=== PATIENT | male | born 1955 | race African-American/Black ===

== ENCOUNTER 2016-06-05 15:47 | Inpatient (IN) | payer MEDICARE, OTHER ==
[2016-06-05 16:28] VITALS: BMI 45.6
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
[2016-06-05] MEDS ORDERED: diphenhydrAMINE HCL 50 MG CAPSULE PO PRN (18:22)
[2016-06-05] MEDS ORDERED: hydrOXYzine PAMOATE 50 MG CAPSULE (FP) PO PRN (18:22)
[2016-06-05] MEDS ORDERED: guaiFENesin/D-METHORPHAN HB 10 ML UNIT-DOSE CUPS PO PRN (18:22)
[2016-06-05] MEDS ORDERED: diazePAM 5 MG TABLET PO ONE (18:22)
[2016-06-05] MEDS ORDERED: P-EPHED 60MG/TRIPROLIDI 2.5MG TABLET PO PRN (18:22)
[2016-06-05] MEDS ORDERED: LOPERAMIDE HCL 2 MG CAPSULE PO PRN (18:22)
[2016-06-05] MEDS ORDERED: MAG HYDROX/AL HYDROX/SIMETH 30 ML UNIT-DOSE CUP PO PRN (18:22)
[2016-06-05] MEDS ORDERED: MAGNESIUM CITRATE 300 ML BOTTLE PO PRN (18:22)
[2016-06-05] MEDS ORDERED: IBUPROFEN 400 MG TABLET (FP) PO PRN (18:22)
[2016-06-05] MEDS ORDERED: MENTHOL/PHENOL 1 EACH UD MM PRN (18:22)
[2016-06-05] MEDS ORDERED: ACETAMINOPHEN 325 MG TABLET (FP) PO PRN (18:22)
[2016-06-05] MEDS ORDERED: diazePAM 5 MG TABLET PO PRN (18:22)
[2016-06-05] MEDS ORDERED: MAGNESIUM HYDROX 2400MG/30ML ORAL SUSPENSION 30 ML CUP PO PRN (18:22)
[2016-06-05] MEDS ORDERED: ASPIRIN 81 MG CHEWABLE TABLETS PO SCH (18:45)
--- NOTE | 2016-06-05 21:16 | EKG ---
Test Reason : Blood Pressure : / mmHG Vent. Rate : 110 BPM Atrial Rate : 127 BPM P-R Int : 000 ms QRS Dur : 082 ms QT Int : 336 ms P-R-T Axes : 000 034 -06 degrees QTc Int : 454 ms ATRIAL FIBRILLATION WITH RAPID VENTRICULAR RESPONSE WITH PREMATURE VENTRICULAR OR ABERRANTLY CONDUCTED COMPLEXES NONSPECIFIC T WAVE ABNORMALITY ABNORMAL ECG WHEN COMPARED WITH ECG OF 23-SEP-2014 11:56, VENT. RATE HAS INCREASED BY 37 BPM NONSPECIFIC T WAVE ABNORMALITY NOW EVIDENT IN LATERAL LEADS Confirmed by VAISHALI HARE MD ([id number]) on 06/05/2016 9:15:51 PM Referred By: Confirmed By:VAISHALI HARE MD
--- NOTE | 2016-06-05 21:47 | PN ---
[facility] Progress Note Note: PT'S EKG WAS ABNORMAL (AFIB WITH RAPID VENTRICULAR RESPONSE WITH PREMATURE VENTRICUAL OR ABERRANTLY CONDUCTED COMPLEXES) AND HIS PULSE WAS 110. PT. HAS AN EXTENSIVE CARDIAC HISTORY TO INCLUDE AFIB, S/P PACEMAKER, CVA AND HTN. HE IS MORBIDLY OBESE AND NON-COMPLIANT WITH MEDICATIONS. PT. TO BE TRANSFERRED TO [facility] ER FOR FURTHER EVALUATION. REPORT GIVEN TO DR. ORTEGA.
[2016-06-05] MEDS ORDERED: levETIRAcetam 500 MG TABLET (FP) PO SCH (22:00)
[2016-06-05] MEDS ORDERED: THIAMINE HCL 100 MG TABLET (FP) PO SCH (22:00)
[2016-06-05] MEDS ORDERED: diazePAM 5 MG TABLET PO SCH (22:00)
[2016-06-05 22:05] VITALS: BP 142/64; PULSE 66; TEMP 97.9
[2016-06-06] MEDS ORDERED: PRENATAL VITAMINS W/ FOLIC ACID TABLET (FP) PO SCH (10:00)
--- NOTE | 2016-06-07 08:53 | DS ---
[id number] Present History: Alcohol Dependence Pertinent Past History: AF HTN ASTHMA SEIZURE DISORDER CVA - Physical Exam Results Vital Signs: Vital Signs Temperature 97.9 F 06/05/16 22:05 Pulse Rate 66 06/05/16 22:05 Respiratory Rate 18 06/05/16 22:05 Blood Pressure 142/64 06/05/16 22:05 O2 Sat by Pulse Oximetry (%) Pertinent Admission Physical Exam Findings: WITHDRAWAL SX. - Medication Discharge Medications: Ambulatory Orders Levetiracetam [Keppra -] 500 mg PO BID 06/05/16 Apixaban [Eliquis -] 5 mg PO BID tablet 06/07/16 Atorvastatin Ca [Lipitor] 10 mg PO HS tablet 06/07/16 Carvedilol [Coreg -] 12.5 mg PO BID tablet 06/07/16 Valsartan [Diovan] 40 mg PO DAILY tablet 06/07/16 - Diagnosis (1) Alcohol dependence with uncomplicated withdrawal Status: Acute (2) AF Atrial fibrillation Status: Chronic (3) Cocaine dependence Status: Chronic Qualifiers: Substance use status: uncomplicated Qualified Code(s): F14.20 - Cocaine dependence, uncomplicated (4) HTN (hypertension) Status: Chronic Qualifiers: Hypertension type: essential hypertension Qualified Code(s): I10 - Essential (primary) hypertension (5) Morbid obesity Status: Chronic Qualifiers: Obesity type: due to excess calories Qualified Code(s): E66.01 - Morbid (severe) obesity due to excess calories (6) Nicotine dependence Status: Chronic Qualifiers: Nicotine product type: cigarettes Substance use status: in withdrawal Qualified Code(s): F17.213 - Nicotine dependence, cigarettes, with withdrawal (7) Seizure disorder Status: Chronic (8) Asthma Status: Chronic Qualifiers: Asthma severity: mild intermittent Asthma complication type: uncomplicated Qualified Code(s): J45.20 - Mild intermittent asthma, uncomplicated - AMA Did Patient Leave Against Medical Advice: No (PT. WAS TRANSFERRED TO ED & ADMITTED TO TELEMETRY)
[2016-06-07] MEDS ORDERED: diazePAM 5 MG TABLET PO SCH (10:00)
[2016-06-09] MEDS ORDERED: diazePAM 5 MG TABLET PO SCH (10:00)
== END 2016-06-05 20:33 | disposition short-term general hospital (02) | DRG 774 ==
LOC: YASAS 15:47 → Y3N 17:55
PROVIDERS: ADMIT Internal Medicine; ATTEND Internal Medicine
PROC: HZ2ZZZZ Detoxification Services for Substance Abuse Treatment (ICD-10-PCS; principal; 2016-06-05)
DX: F10.230 Alcohol dependence with withdrawal, uncomplicated (principal); F14.20 Cocaine dependence, uncomplicated; F17.210 Nicotine dependence, cigarettes, uncomplicated; F41.8 Other specified anxiety disorders; I48.91 Unspecified atrial fibrillation; Z95.0 Presence of cardiac pacemaker; Z86.73 Personal history of transient ischemic attack (TIA), and cerebral infarction without residual deficits; E66.01 Morbid (severe) obesity due to excess calories; Z68.42 Body mass index [BMI] 45.0-49.9, adult
CPT/HCPCS: 93005; 93010

== ENCOUNTER 2016-06-05 20:50 | Inpatient (IN) | payer MEDICARE, OTHER ==
--- NOTE | 2016-06-05 21:03 | PDOC ---
History of Present Illness - General History Source: Patient Exam Limitations: Other - History of Present Illness Initial Comments: 06/05/16 21:28 The patient is a 60 year old male, with a significant past medical history of Atrial fibrillation(pacemaker), CVA, hyperlipidemia, and seizures(related to ETOH use), who presents to the emergency department complaining of palpitations since this afternoon. The patient reports he was transferred from [facility]( detox facility), for rapid heart rate. The patient reports a history of cocaine , marijuana, and ETOH use. He states his last cocaine dose was 4 days ago. The patient denies any chest pain, diaphoresis, or shortness of breath. The patient denies any fever, chills, cough, headache, or dizziness. The patient denies any nausea, vomiting, diarrhea, constipation, or changes of urination patterns. The patient is on aspirin and cardizem. Allergies: Chlordiazepoxide Past Surgical History: Intestinal obstruction (2002), Pacemaker (2001) Social History: Former Smoker(quit 14 years ago). Reports Marijuana, Cocaine, and ETOH abuse. <Gayle Carey - Last Filed: 06/05/16 21:28> <Roni Kinney - Last Filed: 06/06/16 01:06> - General Chief Complaint: Irregular Heart Beat Stated Complaint: AFIB Past History <Gayle Carey - Last Filed: 06/05/16 21:28> - Past Medical History Anemia: No Asthma: No Cancer: No Cardiac Disorders: Yes (a fib 2001) CVA: Yes (IN 2001 WITH LEFT SIDE EFFECT. NO RESIDUAL WEAKNESS) COPD: No CHF: No Dementia: No Diabetes: No GI Disorders: No Disorders: No HTN: No Hypercholesterolemia: Yes Kidney Stones: No Liver Disease: No Suicide Attempt (Hx): No (denies) Seizures: Yes (seizure 02/17/15/alcohol related) Thyroid Disease: No - Surgical History Abdominal Surgery: Yes (intestinal obstruction in 06/2002) Appendectomy: No Cardiac Surgery: Yes (pacemaker inplace from 2001) Cholecystectomy: No Lung Surgery: No Neurologic Surgery: No Orthopedic Surgery: No - Reproductive History Testicular Surgery: No - Psycho/Social/Smoking Cessation Hx Anxiety: Yes Suicidal Ideation: No Smoking Status: Yes Smoking History: Former smoker Have you smoked in the past 12 months: No Number of Cigarettes Smoked Daily: 0 If you are a former smoker, when did you quit?: 2005 Cigars Per Day: 0 'Breaking Loose' booklet given: 06/05/16 Hx Alcohol Use: Yes Drug/Substance Use Hx: Yes Substance Use Type: Alcohol, Cocaine Hx Substance Use Treatment: Yes ([facility] 02/18/15 TO 02/22/15) <Roni Kinney - Last Filed: 06/06/16 01:06> - Past Medical History Allergies/Adverse Reactions: Allergies Allergy/AdvReac Type Severity Reaction Status Date / Time chlordiazepoxide AdvReac Intermediate Nausea & Verified 06/05/16 21:07 Vomiting Home Medications: Ambulatory Orders Aspirin [ASA -] 81 mg PO DAILY 06/05/16 Diltiazem Cd [Cardizem Cd -] 240 mg PO DAILY 06/05/16 Levetiracetam [Keppra -] 500 mg PO BID 06/05/16 Review of Systems - Review of Systems Able to Perform ROS?: Yes Comments:: 06/05/16 21:29 GENERAL/CONSTITUTIONAL: No fever or chills. No weakness. HEAD, EYES, EARS, NOSE AND THROAT: No change in vision. No ear pain or discharge. No sore throat. CARDIOVASCULAR: +Palpitations. No chest pain or shortness of breath. RESPIRATORY: No cough, wheezing, or hemoptysis. GASTROINTESTINAL: No nausea, vomiting, diarrhea or constipation. GENITOURINARY: No dysuria, frequency, or change in urination. MUSCULOSKELETAL: No joint or muscle swelling or pain. No neck or back pain. SKIN: No rash NEUROLOGIC: No headache, vertigo, loss of consciousness, or change in strength/ sensation. ENDOCRINE: No increased thirst. No abnormal weight change. HEMATOLOGIC/LYMPHATIC: No anemia, easy bleeding, or history of blood clots. ALLERGIC/IMMUNOLOGIC: No hives or skin allergy. <Gayle Carey - Last Filed: 06/05/16 21:28> *Physical Exam - Vital Signs Last Vital Signs Temp Pulse Resp BP Pulse Ox 98.9 F 122 H 18 131/90 99 06/05/16 21:01 06/05/16 21:01 06/05/16 21:01 06/05/16 21:01 06/05/16 21:01 - Physical Exam Comments: 06/05/16 21:29 GENERAL: Awake, alert, and fully oriented, in no acute distress HEAD: No signs of trauma EYES: PERRLA, EOMI, sclera anicteric, conjunctiva clear ENT: Auricles normal inspection, hearing grossly normal, nares patent, oropharynx clear without exudates. Moist mucosa NECK: Normal ROM, supple, no lymphadenopathy, JVD, or masses LUNGS: Breath sounds equal, clear to auscultation bilaterally. No wheezes, and no crackles HEART: Irregularly irregular. Rapid rate. Normal S1 and S2, no murmurs, rubs or gallops ABDOMEN: Soft, nontender, normoactive bowel sounds. No guarding, no rebound. No masses EXTREMITIES: 2+ nonpitting edema. Normal range of motion. No clubbing or cyanosis. No cords, erythema, or tenderness NEUROLOGICAL: Cranial nerves II through XII grossly intact. Normal speech, normal gait SKIN: Warm, Dry, normal turgor, no rashes or lesions noted. <Gayle Carey - Last Filed: 06/05/16 21:28> Heart Score/ECG Review - ECG Impressions Comment:: 06/05/16 21:10 Vent Rate: 129 bpm IMPRESSION: Atrial Fibrillation with rapid ventricular response. <Gayle Carey - Last Filed: 06/05/16 21:28> ED Treatment Course - LABORATORY CBC & Chemistry Diagram: 06/05/16 21:20 06/05/16 21:20 <Gayle Carey - Last Filed: 06/05/16 21:28> - LABORATORY CBC & Chemistry Diagram: 06/05/16 21:20 06/05/16 21:20 <Roni Kinney - Last Filed: 06/06/16 01:06> *DC/Admit/Observation/Transfer - Attestations Scribe Attestion: 06/05/16 21:30 Documentation prepared by Gayle Carey, acting as medical detailist for Roni Kinney MD. <Gayle Carey - Last Filed: 06/05/16 21:28> - Discharge Dispostion Admit: Yes <Roni Kinney - Last Filed: 06/06/16 01:06> Diagnosis at time of Disposition: AF Atrial fibrillation, Alcohol dependence, Cocaine abuse - Discharge Dispostion Condition at time of disposition: Guarded Addendum entered and electronically signed by Roni Kinney MD 06/06/16 02: 41: Progress Note - Progress Note Progress Note: Stroke is OLD, NO new stroke. Patient here for AFcRVR. Also polysubstance abuse mostly alcohol. Improved with Cardiezm and admitted to a [facility] hospital bed.
[2016-06-05 21:07] VITALS: BMI 46.3
[2016-06-05] MEDS ORDERED: dilTIAZem HCL 50 MG/10 ML - 10 ML VIAL IVPUSH ONE (21:07)
[2016-06-05] MEDS ORDERED: dilTIAZem HCL 125 MG/25 ML - 25 ML VIAL ONE (21:24)
[2016-06-05 21:31] LABS: BASOPHIL 1.2 % (0-2.0); EOSINOPHIL 1.1 % (0-4.5); MCH 28.5 pg (25.7-33.7); MCHC 32.9 g/dl (32.0-35.9); MEAN CELL VOLUME 86.9 fl (80-96); MEAN PLT VOLUME 8.4 fl (7.5-11.1); NEUTROPHILS 55.7 % (42.8-82.8); PLATELET COUNT 173 K/MM3 (134-434); WHITE BLOOD COUNT 6.8 K/mm3 (4.0-10.0)
[2016-06-05 21:43] LABS: INR 1.11 (0.82-1.09); PROTHROMBIN TIME (PATIENT) 12.2 SEC (9.98-11.88)
[2016-06-05 21:45] LABS: ACTIVATED PTT 29.1 SECONDS (26.9-34.4)
[2016-06-05 21:50] LABS: ANION GAP 10 (8-16); CO2 29 mmol/L (21-32); CREATININE 1.2 mg/dL (0.7-1.3); GLUCOSE,RANDOM 131 mg/dL (74-106)
[2016-06-05 21:51] LABS: ALBUMIN 3.3 g/dl (3.4-5.0); BILIRUBIN,TOTAL 0.3 mg/dL (0.2-1.0); MAGNESIUM 2.1 mg/dL (1.8-2.4); SGOT/AST 26 U/L (15-37); SGPT/ALT 21 U/L (12-78); TOT PROT 7.9 g/dl (6.4-8.2)
[2016-06-05 21:53] LABS: ALK PHOS 84 U/L (45-117); TROPONIN I 0.02 ng/ml (0.00-0.05)
[2016-06-05] MEDS ORDERED: dilTIAZem HCL 60 MG TABLET (FP) PO ONE (23:06)
[2016-06-05 23:14] LABS: URINE APPEARANCE SLCLOUDY; URINE BLOOD NEGATIVE (NEGATIVE); URINE COLOR AMBER; URINE GLUCOSE (UA) NEGATIVE (NEGATIVE); URINE KETONE TRACE (NEGATIVE); URINE LEUK ESTERASE NEGATIVE (NEGATIVE); URINE NITRITE NEGATIVE (NEGATIVE); URINE UROBILINOGEN 4.0 E.U/dl E.U./dl (0.2-1.0)
[2016-06-05 23:16] LABS: URINE PROTEIN 1+ (NEGATIVE)
[2016-06-05 23:19] LABS: URINE MUCUS FEW; URINE RBC 2 /hpf (0-3); URINE WBC 1 /hpf (3-5)
[2016-06-05] MEDS ORDERED: dilTIAZem HCL 60 MG TABLET (FP) ONE (23:24)
[2016-06-06 00:47] LABS: URINE MARIJUANA THC NEGATIVE ng/ml (CUTOFF=50)
[2016-06-06] MEDS ORDERED: LORAZEPAM CARPU-JECT 2 MG/ML DISP.SYRIN IVPUSH ONE (00:56)
[2016-06-06] MEDS ORDERED: FOLIC ACID INJECTION - 1 MG, THIAMINE HCL 100 MG, MULTIVIT INJECTION ADULT 10 ML in SOD... IVPB ONE (00:57)
--- NOTE | 2016-06-06 01:06 | PN ---
<Roni Kinney - Last Filed: 06/06/16 02:39> Teaching Attending Note ATTENDING PHYSICIAN STATEMENT I saw and evaluated the patient. I reviewed the resident's note and discussed the case with the resident. I agree with the resident's findings and plan as documented. SUBJECTIVE: OBJECTIVE: ASSESSMENT AND PLAN: <Jocelyn Coe - Last Filed: 06/06/16 03:25> Teaching Attending Note ATTENDING PHYSICIAN STATEMENT I saw and evaluated the patient. I reviewed the resident's note and discussed the case with the resident. I agree with the resident's findings and plan as documented. SUBJECTIVE: Patient is a 60 yo M with a PMHx of AFIB, HDL, CVA, withdrawal, seizures. and pacemaker who presents from [facility] with palpitations. Patients Hx is limited as patient is unwilling to talk because he was asleep. Patient reports he consumes a pint and a half of rum daily and his last drink was earlier today. He reports his last cocaine use was 4 days ago. Denies chest pain, chest pressure, SOB Allergies: Librium OBJECTIVE: GENERAL: Awake, alert, and fully oriented, obese, in no acute distress HEENT: Atraumatic. PERRLA, EOMI. Moist mucosa. No JVD LUNGS: No distress, speaks full sentences, clear to auscultation bilaterally HEART: Irregular heart rate S1 S2, no murmurs, rubs or gallops, peripheral pulses normal and equal bilaterally. ABDOMEN: Soft, nontender, normoactive bowel sounds. No guarding, no rebound. No masses EXTREMITIES: Normal inspection, Normal range of motion, no edema. No clubbing or cyanosis. NEUROLOGICAL: Cranial nerves II through XII grossly intact. SKIN: Warm, Dry, normal turgor, no rashes or lesions noted. ECG: RVR rate @129 Imaging: Last Echo 2014 EF of 52 Mild MR Mild TR Left ventricular systolic function mildly reduced. ASSESSMENT AND PLAN: Patient is a 69 yo M with a PMHx of AFIB, HDL, CVA, withdrawal, seizures and pacemaker presents from [facility] with Afib. being admitted for AFib 1.) Afib with RVR -Chronic -Continue Cardizem 240 mg PO daily s/p Cardizem in ED with rate control -[id number] patient was on anticoagulation, taken off, possibly due to high fall risk, needs clarification with cardiology -Trend troponins -Last Echo in 2015 repeat 2.) Polysubstance abuse -Positive ETOH -Benzos and Cocaine -Avoid beta micheal in light of positive cocaine -Librium protocol for CIWA -Detox consult -Thiamine and folic acid daily 3.) Hx of CVA -Continue aspirin 4.) HLD -Not on any medications -Check lipid panel 5.) Hx of seizures -Continue with keppra check level 6.) Librium Allergy -Continue with Valium and CIWA DVT ppx -SCDs -Admit to [facility] Documentation prepared by Jocelyn Coe, acting as medical supply technician for Stacey Page D.O. <Stacey Page - Last Filed: 06/06/16 04:34> Teaching Attending Note Name of Resident: Aurea Quigley CBCD WBC 6.8 K/mm3 (4.0-10.0) D 06/05/16 21:20 RBC 4.71 M/mm3 (4.00-5.60) 06/05/16 21:20 Hgb 13.4 GM/dL (11.7-16.9) D 06/05/16 21:20 Hct 40.9 % (35.4-49) 06/05/16 21:20 MCV 86.9 fl (80-96) 06/05/16 21:20 MCHC 32.9 g/dl (32.0-35.9) 06/05/16 21:20 RDW 18.0 % (11.9-15.9) H 06/05/16 21:20 Plt Count 173 K/MM3 (134-434) 06/05/16 21:20 MPV 8.4 fl (7.5-11.1) 06/05/16 21:20 CMP Sodium 141 mmol/L (136-145) 06/05/16 21:20 Potassium 3.7 mmol/L (3.5-5.1) 06/05/16 21:20 Chloride 102 mmol/L (98-107) 06/05/16 21:20 Carbon Dioxide 29 mmol/L (21-32) 06/05/16 21:20 Anion Gap 10 (8-16) 06/05/16 21:20 BUN 13 mg/dL (7-18) 06/05/16 21:20 Creatinine 1.2 mg/dL (0.7-1.3) 06/05/16 21:20 Creat Clearance w eGFR > 60 (>60) 06/05/16 21:20 Random Glucose 131 mg/dL (74-106) H D 06/05/16 21:20 Calcium 9.0 mg/dL (8.5-10.1) 06/05/16 21:20 Total Bilirubin 0.3 mg/dL (0.2-1.0) D 06/05/16 21:20 AST 26 U/L (15-37) D 06/05/16 21:20 ALT 21 U/L (12-78) 06/05/16 21:20 Alkaline Phosphatase 84 U/L (45-117) D 06/05/16 21:20 Total Protein 7.9 g/dl (6.4-8.2) 06/05/16 21:20 Albumin 3.3 g/dl (3.4-5.0) L 06/05/16 21:20 CARDIAC ENZYMES Creatine Kinase 145 IU/L (39-308) 06/06/16 03:15 Troponin I 0.02 ng/ml (0.00-0.05) 06/06/16 03:15 Vital Signs Period Temp Pulse Resp BP Sys/Griffin Pulse Ox Last 24 Hr 98.9 F 106-122 16-18 110-131/59-90 99-100
[2016-06-06] MEDS ORDERED: LORAZEPAM CARPU-JECT 2 MG/ML DISP.SYRIN ONE (01:17)
[2016-06-06] MEDS ORDERED: diazePAM 5 MG TABLET PO PRN (02:20)
--- NOTE | 2016-06-06 02:22 | HP ---
CHIEF COMPLAINT: A.fib and palpitations PCP: None HISTORY OF PRESENT ILLNESS: Limited history due to patient being drowsy and sleepy, unwilling to provide to information. Patient is a 60 year old male with a PMHx of A.fib (non-compliant with medication) with pacemaker, HLD, CVA, and polysubstance abuse with alcohol withdrawal seizures who was brought here from [facility] for palpitations and A.fib with RVR. History obtained from patient limited due to his current state of drowsiness and possible intoxication. Patient did admit to having a pint and a half of vodka today and cocaine 4 days ago. He denies chest pain, shortness of breath, fever, chills, nausea, vomiting, tremors, headaches, acute visual changes, abdominal pain, back pain, dysuria, hematuria. ER course was notable for: (1) Ativan 2mg (2) Diltiazem 120mg PO and 20mg IV (3) Recent Travel: limited due to his current state of drowsiness and possible intoxication. PAST MEDICAL HISTORY: A.elle (non-compliant with medication) with pacemaker, HLD , CVA, and alcohol withdrawal seizures PAST SURGICAL HISTORY: Pacemaker (2001), Abdominal resection (2002) Social History: Smoking: Denies Alcohol: 1.5 pints of rum with last drink yesterday Drugs: Cocaine and Marijuana. He has Cocaine 4 days ago Family History: limited due to his current state of drowsiness and possible intoxication. Allergies: chlordiazepoxide Adverse Reaction (Intermediate, Verified 06/05/16 21 :07) Nausea & Vomiting Pt vomits HOME MEDICATIONS: Home Medications Medication Instructions Recorded Aspirin [ASA -] 81 mg PO DAILY 06/05/16 Diltiazem Cd [Cardizem Cd -] 240 mg PO DAILY 06/05/16 Levetiracetam [Keppra -] 500 mg PO BID 06/05/16 REVIEW OF SYSTEMS limited due to his current state of drowsiness and possible intoxication. PHYSICAL EXAMINATION GENERAL: Drowsy and sleepy. No acute distress HEENT: AT/NC, PERRL, EOMI, Moist mucous membranes. NECK: Supple without lymphadenopathy, JVD, or masses. LUNGS: Breath sounds equal, clear to auscultation bilaterally. No wheezes, and no crackles. No accessory muscle use. HEART: Regular rate with irregularly irregular rhythm, normal S1 and S2 without rub or gallop. ABDOMEN: Soft, nontender, not distended, normoactive bowel sounds, no guarding, no rebound, no masses. No hepatomegaly or splenomegaly. EXTREMITIES: 2+ pulses, warm, well-perfused. No cyanosis. No clubbing. No peripheral edema. No calf tenderness NEUROLOGICAL: No focal deficits. Normal speech. PSYCHIATRIC: Drowsy and lethargic SKIN: Warm, dry, normal turgor, no rashes or lesions noted. Laboratory Results - last 24 hr 06/05/16 06/05/16 06/05/16 21:15 21:20 21:20 WBC 6.8 D RBC 4.71 Hgb 13.4 D Hct 40.9 MCV 86.9 MCHC 32.9 RDW 18.0 H Plt Count 173 MPV 8.4 Neutrophils % 55.7 Lymphocytes % 34.6 Monocytes % 7.4 Eosinophils % 1.1 Basophils % 1.2 INR 1.11 PTT (Actin FS) 29.1 D Sodium Potassium Chloride Carbon Dioxide Anion Gap BUN Creatinine Creat Clearance w eGFR Random Glucose Calcium Magnesium Total Bilirubin AST ALT Alkaline Phosphatase Creatine Kinase Creatine Kinase Index CK-MB (CK-2) CK-MB (CK-2) Rel Index Troponin I Total Protein Albumin Urine Color Urine Appearance Urine pH Ur Specific [place] Urine Protein Urine Glucose (UA) Urine Ketones Urine Blood Urine Nitrite Urine Bilirubin Urine Urobilinogen Ur Leukocyte Esterase Urine RBC Urine WBC Ur Epithelial Cells Urine Mucus Opiates Screen Methadone Screen Barbiturate Screen Phencyclidine Screen Ur Amphetamines Screen MDMA (Ecstasy) Screen Benzodiazepines Screen Cocaine Screen U Marijuana (THC) Screen Alcohol, Quantitative 5.4 H* 06/05/16 06/05/16 06/05/16 21:20 21:20 23:00 WBC RBC Hgb Hct MCV MCHC RDW Plt Count MPV Neutrophils % Lymphocytes % Monocytes % Eosinophils % Basophils % INR PTT (Actin FS) Sodium 141 Potassium 3.7 Chloride 102 Carbon Dioxide 29 Anion Gap 10 BUN 13 Creatinine 1.2 Creat Clearance w eGFR > 60 Random Glucose 131 H D Calcium 9.0 Magnesium 2.1 Total Bilirubin 0.3 D AST 26 D ALT 21 Alkaline Phosphatase 84 D Creatine Kinase 175 D Creatine Kinase Index 1.4 CK-MB (CK-2) 2.412 CK-MB (CK-2) Rel Index Cancelled Troponin I 0.02 Total Protein 7.9 Albumin 3.3 L Urine Color Thelma Urine Appearance Slcloudy Urine pH 5.0 Ur Specific [place] 1.034 Urine Protein 1+ H Urine Glucose (UA) Negative Urine Ketones Trace H Urine Blood Negative Urine Nitrite Negative Urine Bilirubin 2.0 Urine Urobilinogen 4.0 e.u/dl Ur Leukocyte Esterase Negative Urine RBC 2 Urine WBC 1 Ur Epithelial Cells Rare Urine Mucus Few Opiates Screen Methadone Screen Barbiturate Screen Phencyclidine Screen Ur Amphetamines Screen MDMA (Ecstasy) Screen Benzodiazepines Screen Cocaine Screen U Marijuana (THC) Screen Alcohol, Quantitative 06/05/16 23:00 WBC RBC Hgb Hct MCV MCHC RDW Plt Count MPV Neutrophils % Lymphocytes % Monocytes % Eosinophils % Basophils % INR PTT (Actin FS) Sodium Potassium Chloride Carbon Dioxide Anion Gap BUN Creatinine Creat Clearance w eGFR Random Glucose Calcium Magnesium Total Bilirubin AST ALT Alkaline Phosphatase Creatine Kinase Creatine Kinase Index CK-MB (CK-2) CK-MB (CK-2) Rel Index Troponin I Total Protein Albumin Urine Color Urine Appearance Urine pH Ur Specific [place] Urine Protein Urine Glucose (UA) Urine Ketones Urine Blood Urine Nitrite Urine Bilirubin Urine Urobilinogen Ur Leukocyte Esterase Urine RBC Urine WBC Ur Epithelial Cells Urine Mucus Opiates Screen Negative Methadone Screen Negative Barbiturate Screen Negative Phencyclidine Screen Negative Ur Amphetamines Screen Negative MDMA (Ecstasy) Screen Negative Benzodiazepines Screen Positive Cocaine Screen Positive U Marijuana (THC) Screen Negative Alcohol, Quantitative EKG: Atrial Fibrillation with rapid ventricular response @129BPM ASSESSMENT/PLAN: Patient is a 60 year old male with a PMHx of A.fib (non-compliant with medication) with pacemaker, HLD, CVA, and polysubstance abuse with alcohol withdrawal seizures who was brought from [facility] for palpitations. Patient found to have A.fib with RVR. Patient admitted to telemetry for further monitoring and management. Atrial Fibrillation with RVR -Has history of A.fib but noncompliant with medications -Was on anticoagulation but was taken off. Possibly due to high fall risk -[id number] score: 3 -Continue home medication 240mg PO -Continue to trend troponins. First troponin negative -Continue cardiac monitoring Polysubstance Abuse -Toxicology positive for ETOH, Cocaine and Benzo's -Valium 10mg TID PRN ordered as patient is unable to tolerate Librium -Detox consult placed for Dr. Norton -Continue Thiamine 100mg daily -Continue Folic Acid 1gm daily -AVOID BETA BLOCKERS due to positive cocaine History of CVA -Continue Aspirin 81mg daily HLD -On no home medications -Lipid Panel ordered History of Seizures -Likely from alcohol withdrawals -Continue Keppra 500mg BID F/E/N -On no fluids -Electrolytes wnl -Cholesterol controlled diet Prophylaxis -SCD's for DVT -No GI needed Disposition -Full code -Placed in observation in telemetry Visit type - Emergency Visit Emergency Visit: Yes ED Registration Date: 06/06/16 Care time: The patient presented to the Emergency Department on the above date and was hospitalized for further evaluation of their emergent condition. - New Patient This patient is new to me today: Yes Date on this admission: 06/06/16 - Critical Care Critical Care patient: No
[2016-06-06] MEDS ORDERED: chlordiazePOXIDE HCL 25 MG CAPSULE PO SCH (03:00)
[2016-06-06] MEDS ORDERED: chlordiazePOXIDE HCL 25 MG CAPSULE PO PRN (03:00)
[2016-06-06 04:05] LABS: TROPONIN I 0.02 ng/ml (0.00-0.05)
[2016-06-06 07:09] LABS: CHOLESTEROL 112 mg/dL (50-200); LDL CHOLESTEROL (ONLY SJRH) 43 mg/dL (5-100)
[2016-06-06] MEDS ORDERED: HEMOQUE TEST 1 EACH EACH ONE ×3 (07:18→13:46)
[2016-06-06] MEDS: INSULIN SLIDING SCALE (NOVOLOG) 1 VIAL SQ SCH ×2 (07:26→17:27)
[2016-06-06] MEDS: levETIRAcetam 500 MG TABLET (FP) PO SCH ×2 (09:17→21:57)
[2016-06-06] MEDS: FOLIC ACID 1 MG TABLET (FP) PO SCH (09:17)
[2016-06-06] MEDS: THIAMINE HCL 100 MG TABLET (FP) PO SCH (09:18)
[2016-06-06] MEDS ORDERED: ASPIRIN 81 MG CHEWABLE TABLETS PO SCH (10:00)
--- NOTE | 2016-06-06 13:18 | EKG ---
Test Reason : Blood Pressure : / mmHG Vent. Rate : 129 BPM Atrial Rate : 120 BPM P-R Int : 000 ms QRS Dur : 086 ms QT Int : 322 ms P-R-T Axes : 000 036 -12 degrees QTc Int : 471 ms ATRIAL FIBRILLATION WITH RAPID VENTRICULAR RESPONSE WITH PREMATURE VENTRICULAR OR ABERRANTLY CONDUCTED COMPLEXES NONSPECIFIC T WAVE ABNORMALITY ABNORMAL ECG WHEN COMPARED WITH ECG OF 05-JUN-2016 19:44, NO SIGNIFICANT CHANGE WAS FOUND Confirmed by PAYAM LEE, VAISHALI ([id number]) on 06/06/2016 1:18:09 PM Referred By: Confirmed By:VAISHALI HARE MD
[2016-06-06] MEDS ORDERED: ASPIRIN 325 MG TABLET ONE (13:48)
[2016-06-06] MEDS: ASPIRIN 325 MG ENTERIC COATED TABLET (FP) PO SCH (13:55)
--- NOTE | 2016-06-06 14:01 | CON.CARD ---
Consult Consult Specialty:: Cardiology Referred by:: Hospitalist Medicine Reason for Consultation:: Afib, TIA - History of Present Illness Chief Complaint: Left arm weakness History of Present Illness: 60 year old man with a history polysubstance abuse including ETOH and cocaine, marijuana, etoh, CAD (unclear, documented but pt is unaware), AF not on a/c due to noncompliance and ongoing drug abuse, PPM, CVA 2001, seizure disorder presented from [facility] with palpitations in rapid afib without chest pain or dyspnea. Patient reported left arm and leg numbness without facial symptoms or significant motor weakness (early 4/5 weakness noted per IM phyician, now normal ). CT old left sided frontal infarct with no acute changes. 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 Cardio/Vascular: Yes: AFIB, CAD (unclear), HTN - Alcohol/Substance Use Hx Alcohol Use: Yes History of Substance Use: reports: Cocaine (last one 8 months ago as per pt), Marijuana - Smoking History Smoking history: Former smoker Have you smoked in the past 12 months: No Aproximately how many cigarettes per day: 0 If you are a former smoker, when did you quit?: 2006 - Social History Usual Living Arrangement: Other (brother and sister) ADL: Family Assistance History of Recent Travel: No Home Medications - Allergies Allergies/Adverse Reactions: Allergies Allergy/AdvReac Type Severity Reaction Status Date / Time chlordiazepoxide AdvReac Intermediate Nausea & Verified 06/05/16 21:07 Vomiting - Home Medications Home Medications: Ambulatory Orders Aspirin [ASA -] 81 mg PO DAILY 06/05/16 Diltiazem Cd [Cardizem Cd -] 240 mg PO DAILY 06/05/16 Levetiracetam [Keppra -] 500 mg PO BID 06/05/16 Family Disease History - Family Disease History Family Disease History: Other: Father (alzheimer, 2012, Stroke), Mother ( CA OF BEAST,RENAL FAILURE,), Sister (alzheimer, , Kidney Ca) Review of Systems - Review of Systems Neurological: reports: Weakness Vital Signs: Vital Signs Temperature 98.2 F 06/06/16 10:40 Pulse Rate 88 06/06/16 13:25 Respiratory Rate 20 06/06/16 13:25 Blood Pressure 110/79 06/06/16 13:25 O2 Sat by Pulse Oximetry (%) 100 06/06/16 13:25 Constitutional: Yes: No Distress, Calm Neck: Yes: Supple Respiratory: Yes: Regular, Diminished Gastrointestinal: Yes: Normal Bowel Sounds, Soft, Abdomen, Obese Cardiovascular: Yes: Pulse Irregular JVD: No Carotid Bruit: No Heart Sounds: Yes: S1, S2 Edema: No - Other Data Labs, Other Data: INR, PTT INR 1.11 (0.82-1.09) 06/05/16 21:20 Troponin, BNP 06/06/16 03:15 Troponin I 0.02 Troponin, BNP 06/06/16 03:15 Troponin I 0.02 Afib @ 129 fusion complex Ejection Fraction %: LVEF > or = 40 % Problem List - Problems (1) Alcohol dependence Code(s): F10.20 - ALCOHOL DEPENDENCE, UNCOMPLICATED Qualifiers: Substance use status: uncomplicated Qualified Code(s): F10.20 - Alcohol dependence, uncomplicated (2) Cocaine dependence Code(s): F14.20 - COCAINE DEPENDENCE, UNCOMPLICATED Qualifiers: Substance use status: uncomplicated Qualified Code(s): F14.20 - Cocaine dependence, uncomplicated (3) AF Atrial fibrillation Code(s): I48.91 - UNSPECIFIED ATRIAL FIBRILLATION (4) HTN (hypertension) Code(s): I10 - ESSENTIAL (PRIMARY) HYPERTENSION Qualifiers: Hypertension type: essential hypertension Qualified Code(s): I10 - Essential (primary) hypertension (6) Palpitations Code(s): R00.2 - PALPITATIONS (7) Old cerebrovascular accident (CVA) without late effect Code(s): Z86.73 - PRSNL HX OF TIA (TIA), AND CEREB INFRC W/O RESID DEFICITS (8) Noncompliance Code(s): Z91.19 - PATIENT'S NONCOMPLIANCE W OTH MEDICAL TREATMENT AND REGIMEN Assessment/Plan 09/24/2014 echo with mild LV systolic dysfunction and mild valvular abnormalities 09/24/2014 no ischemia on stress 1. Palpitations referable to rapid afib [id number] 2. Poylsubstance abuse (ETOH, cocaine, marijuana) 3. s/p PPMD 4. TIA, h/o CVA 2001 5. Medication noncompliance 6. Sz d/o P:1. Ruled out for [place] 2. Continue Cardizem CD 240 qd, ideally resume coumadin 5 mg daily per INR given elevated risk score, otherwise ASA 81 qd 3. Emphasized importance of medication compliance and abstinence from toxins 4. Interrogate pacer, review records from [facility] 5. Thank you for consultative opportunity
--- NOTE | 2016-06-06 14:20 | CONSULT ---
Consult Reason for Consultation:: code lopez for acute left arm and leg "numbness" onset 1334 in the ED - History of Present Illness History of Present Illness: 60 with documented hx of A-fib, CAD, cocaine, morbid obesity and uncontrolled hypertension was in the ED for evaluation of Chest pain and tachycardia, after abusing cocaine since last night when patient reported left arm and leg numbness without facial symptoms or significant motor weakness (early 4/5 weakness noted per IM phyician, now normal). CT old left sided frontal infarct with no acute changes. 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 Cardio/Vascular: Yes: AFIB, CAD (unclear), HTN Psych: Yes: Other (polysubstance abuse (ETOH and Cocaine)) - Alcohol/Substance Use Hx Alcohol Use: Yes History of Substance Use: reports: Cocaine (last one 8 months ago as per pt), Marijuana - Smoking History Smoking history: Former smoker Have you smoked in the past 12 months: No Aproximately how many cigarettes per day: 0 If you are a former smoker, when did you quit?: 2005 - Social History Usual Living Arrangement: Other (brother and sister) ADL: Family Assistance History of Recent Travel: No Home Medications - Allergies Allergies/Adverse Reactions: Allergies Allergy/AdvReac Type Severity Reaction Status Date / Time chlordiazepoxide AdvReac Intermediate Nausea & Verified 06/05/16 21:07 Vomiting - Home Medications Home Medications: Ambulatory Orders Aspirin [ASA -] 81 mg PO DAILY 06/05/16 Diltiazem Cd [Cardizem Cd -] 240 mg PO DAILY 06/05/16 Levetiracetam [Keppra -] 500 mg PO BID 06/05/16 Family Disease History - Family Disease History Family Disease History: Other: Father (alzheimer, 2012, Stroke), Mother ( CA OF BEAST,RENAL FAILURE,), Sister (alzheimer, , Kidney Ca) Physical Exam Vital Signs: Vital Signs Temperature 98.2 F 06/06/16 10:40 Pulse Rate 88 06/06/16 13:25 Respiratory Rate 20 06/06/16 13:25 Blood Pressure 110/79 06/06/16 13:25 O2 Sat by Pulse Oximetry (%) 100 06/06/16 13:25 Constitutional: Yes: Obese Eyes: Yes: Conjunctiva Clear, EOM Intact, PERRL. No: Diplopia, Ptosis HENT: Yes: Atraumatic Neck: Yes: Supple Respiratory: Yes: Regular Gastrointestinal: Yes: Soft, Abdomen, Obese Musculoskeletal: No: Muscle Weakness Neurological: Yes: Alert, Oriented, Babinski negative, Cran Nerves II-XII Intact , Numbness (reported left arm and leg numbnes equal at onset with no facial involvement and now reported decrease sensation to LT with absent DTR and downgoing plantar response with systolic pressure [address] and no evidence of acute stroke with NIH stroke scale of 1). No: Ataxia, Dysarthria, Loss of Sensation, Weakness Assessment/Plan reported left arm and leg numbnes equal at onset with no facial involvement @ 1324 EST and now reported decreased sensation to LT with absent DTR and downgoing plantar response with systolic pressure [address] and no evidence of acute stroke with NIH stroke scale of 1 Code lopez with no indication for TPA or evidence of Acute stroke. TIA with numerous stroke risk factors. Stroke education provided in addition to lipid, glucose, BP, and weight control , strongly encouraged patient to stop the cocaine use TIA care excluded cardiac etiology per cardiology and vascular disease per IM with carotid doppler antip-platelet treatment and LIPID, GLUCOSE, OBESITY and hypertension treatment deferred to the management of the primary care team Suggest CD psychiatry consultation. Prevention of bedrest complications per IM team as indicated.
--- NOTE | 2016-06-06 14:40 | PN ---
Physical Exam: SUBJECTIVE: Patient seen and examined in AM. He denies chest pain, SOB palpitations, abdominal pain. Later in the day after code lopez he complained of weakness in left arm. Denies headache, vision problems, weakness in the leg. OBJECTIVE: Vital Signs Period Temp Pulse Resp BP Sys/Griffin Pulse Ox Last 24 Hr 98.2 F 77-88 18-20 110-137/65-105 97-100 GENERAL: The patient is awake, alert, and fully oriented, in no acute distress. HEAD: Normal with no signs of trauma. EYES: sclera anicteric, conjunctiva clear. No ptosis. ENT: oropharynx clear without exudates, moist mucous membranes. NECK: Trachea midline, full range of motion, supple. LUNGS: Breath sounds equal, clear to auscultation bilaterally, no wheezes, no crackles, no accessory muscle use. HEART: Irregular, S1, S2 without murmur, rub or gallop. ABDOMEN: Obese, soft, nontender, nondistended, normoactive bowel sounds, no guarding, no rebound, no hepatosplenomegaly, no masses. EXTREMITIES: no edema. NEUROLOGICAL: Slurred speech, gait not observed, weakness in left arm 4/5 in AM and 3/5 in the afternoon when reexamined, weakness in LLE 4/5, extraocular movements intact, no facial asymmetry, slurred speech. PSYCH: Normal mood, normal affect. SKIN: Warm, dry, normal turgor, no rashes or lesions noted Laboratory Results - last 24 hr 06/06/16 06/06/16 06/06/16 03:15 06:00 07:22 POC Glucometer [phone] Creatine Kinase 145 Troponin I 0.02 Triglycerides 57 D Cholesterol 112 Total LDL Cholesterol 43 D HDL Cholesterol 74 H D 06/06/16 13:47 POC Glucometer [phone] Creatine Kinase Troponin I Triglycerides Cholesterol Total LDL Cholesterol HDL Cholesterol Active Medications Generic Name Dose Route Start Last Admin Trade Name Freq PRN Reason Stop Dose Admin Aspirin 325 mg 06/06/16 14:00 06/06/16 13:55 Ecotrin - PO 325 mg DAILY CRISTHIAN Administration Atorvastatin Calcium 10 mg 06/06/16 22:00 Lipitor - PO HS CRISTHIAN Diazepam 5 mg 06/06/16 02:20 Valium - PO TID PRN WITHDRAWAL(CONT SUBST) Diltiazem HCl 240 mg 06/06/16 10:00 06/06/16 09:17 Cardizem Cd - PO 240 mg DAILY CRISTHIAN Administration Folic Acid 1 mg 06/06/16 10:00 06/06/16 09:17 Folic Acid - PO 1 mg DAILY CRISTHIAN Administration Insulin Aspart 1 vial 06/06/16 07:00 06/06/16 07:26 Novolog Vial Sliding Scale - SQ Not Given [facility] Protocol Levetiracetam 500 mg 06/06/16 10:00 06/06/16 09:17 Keppra - PO 500 mg BID CRISTHIAN Administration Thiamine HCl 100 mg 06/06/16 10:00 06/06/16 09:18 Vitamin B1 - PO 100 mg DAILY CRISTHIAN Administration EKG: Atrial Fibrillation with rapid ventricular response @129BPM ASSESSMENT/PLAN: Patient is a 60 year old male with a PMHx of A.fib (non-compliant with medication) with pacemaker, HLD, CVA, and polysubstance abuse with alcohol withdrawal seizures who was brought from [facility] for palpitations. Patient found to have A.fib with RVR. Patient admitted to telemetry for further monitoring and management. Atrial Fibrillation with RVR -Has history of A.fib but noncompliant with medications -Was on anticoagulation but was taken off. Possibly due to high fall risk -[id number] score: 3 -Continue home medication Cardizem 240mg PO -Troponins x2 neg -Continue cardiac monitoring CVA: -code lopez was initialized in the afternoon; the nurse stated that suddenly he had weakness in left arm and had difficulty with eating. We ordered CT head. The results didn't show any new changes. No acute pathology -we ordered ASA 325 mg Daily, Lipitor 10 mg, lipid panel, continue cardiac monitoring, cardio and Neurology consultation Polysubstance Abuse -Toxicology positive for ETOH, Cocaine and Benzo's -Valium 10mg TID PRN ordered as patient is unable to tolerate Librium -Detox consult placed for Dr. Norton -Continue Thiamine 100mg daily -Continue Folic Acid 1gm daily -AVOID BETA BLOCKERS due to positive cocaine HLD -On no home medications -Lipid Panel ordered History of Seizures -Likely from alcohol withdrawals -Continue Keppra 500mg BID F/E/N -On no fluids -Electrolytes wnl -Cholesterol controlled diet Prophylaxis -SCD's for DVT -No GI needed Disposition -Admitted to telemetry Visit type - Emergency Visit Emergency Visit: Yes ED Registration Date: 06/06/16 Care time: The patient presented to the Emergency Department on the above date and was hospitalized for further evaluation of their emergent condition. - New Patient This patient is new to me today: Yes Date on this admission: 06/06/16 - Critical Care Critical Care patient: Yes Total Critical Care Time (in minutes): 50 Critical Care Statement: The care of this patient involved high complexity decision making to prevent further life threatening deterioration of the patient 's condition and/or to evalute & treat vital organ system(s) failure or risk of failure. - Discharge Referral Referred to [facility] No
[2016-06-06 14:44] LABS: INR 1.12 (0.82-1.09); PROTHROMBIN TIME (PATIENT) 12.4 SEC (9.98-11.88)
[2016-06-06 14:47] LABS: ACTIVATED PTT 28.2 SECONDS (26.9-34.4); ALBUMIN 2.9 g/dl (3.4-5.0); ANION GAP 11 (8-16); BILIRUBIN,TOTAL 0.4 mg/dL (0.2-1.0); CALCIUM 8.6 mg/dL (8.5-10.1); CHOLESTEROL 117 mg/dL (50-200); CO2 28 mmol/L (21-32); CREATININE 1.1 mg/dL (0.7-1.3); GLUCOSE,RANDOM 177 mg/dL (74-106); LDL CHOLESTEROL (ONLY SJRH) 42 mg/dL (5-100); SGOT/AST 19 U/L (15-37); SGPT/ALT 19 U/L (12-78); TOT PROT 7.1 g/dl (6.4-8.2)
[2016-06-06 14:48] LABS: ALK PHOS 69 U/L (45-117); TROPONIN I 0.02 ng/ml (0.00-0.05)
--- NOTE | 2016-06-06 15:31 | CONSULT ---
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 Cardiovascular: Yes: AFIB, CAD (unclear), HTN Psych: Yes: Other (polysubstance abuse (ETOH and Cocaine)) - Smoking History Smoking history: Former smoker Have you smoked in the past 12 months: No Aproximately how many cigarettes per day: 0 If you are a former smoker, when did you quit?: 2005 - Alcohol/Substance Use Hx Alcohol Use: Yes History of Substance Use: reports: Cocaine (last one 8 months ago as per pt), Marijuana - Social History ADL: Family Assistance History of Recent Travel: No History - Admission Reason For Visit: AF ATRIAL FIBRILLATION, ALCOHOL DEPENDENCE, COCAIN - Hearing Hearing: Normal Speech Evaluation - Communication Primary Language: YEMENI Communication: Yes: Within Normal Limits Oral Expression Ability: Yes: Moderate Impairment (reduced intelligibility with connected speech.) - Speech Production Dysarthria: Yes: Flaccid Apraxia: Yes Able to Make Needs Known: Yes: Mildly Impaired Intelligibility: Yes: Moderately Impaired - Speech Characteristics Voice Loudness: Moderately Soft/Quiet Voice Pitch: Yes: Moderatley Low Voice Phonatory-based Quality: Yes: Breathy, Weak Speech Pattern: Impaired Speech Clarity: < 50% Nasal Resonance: Normal Articulation: Yes: Imprecise (difficult to understand at times.) Rate of Speech: Too Fast Voice, Other Observations: Yes: Mouth Breathing - Language/Auditory Comprehension Follows: Yes: 1 Stage Simple Commands (WFL), 2 Stage Simple Commands (WFL) Observation: Able to respond to yes/no queries: Yes, Yes/No Confusion: No, Comprehends Conversational Speech: Yes, Benefits from Slow Speech: No, Benefits from Repetiton: No, Benefits from Increased Volume of Speech: No - Language/Verbal Expression Able to Respond to Simple Queries: Yes: WNL Able to Communicate Wants and Needs: Yes: Mildly Impaired Aware of Errors: Yes Attempts to Correct Errors: Yes Use of Gestures: Yes Written Expression: not examined Oral Expression: poor intelligibility Reading Comprehension: not examined Calculations: not examined Attention: Yes: Intact - Memory/Perception MCC Memory: Yes: WNL Short Term Memory: Yes: WNL - Swallow Evaluation/Bedside Assessment Current Nutritional Intake: NPO (pending dysphagia evaluation) Oral Secretions: Yes: WFL Tracheostomy Present: No Patient on Ventilator: No Dentition: Yes: Edentulous (top and bottom) Facial Symmetry at Rest: Facial Droop Left (mild) Facial Symmetry on Retraction: Facial Droop Left Facial Movement: Controlled Sensation: Reduced Left (pt reported reduced sensation.) Facial Comment: Redused on left side but WFL for swallowing purposes Jaw Position: Open at Rest Against Resistance Opening: Weak Against Resistance Closing: Normal Smile: Droops Left Lips, Comment: Redused on left side but WFL for swallowing purposes Lingual Movement: Normal Lingual Speed of Movement: Reduced (slow) Lingual Movement Strgth Against Opposition: Normal Lingual Movement Characteristics: Normal Lingual Comment: WFL for speech and swallowing purposes Soft Palate Description: Normal Color, Normal Arch Hard Palate Description: Normal Color, Normal Arch Bite Reflex: Present Velopharyngeal Movement: Normal Laryngeal Elevation: WFL Laryngeal Movement: Able to Palpate Needs Assistance: Yes Rate of Intake: WFL Bolus Size: WFL Sensation: Bite Reflex Labial Seal: WFL Chewing: WFL Oral Prep Time: WFL A-P Transit: WFL Pocketing: None Timing of Swallow: WFL Odynophagia: Oral (secondary to dental status.) Other Findings/Remarks: 60 year old male seen at bedside for swallow eval to r/o dysphagia. Pt is verbal (but difficult to understand at times), A&OX3, cooperative. Pt admitted to [facility] for A-FIB and presents with mild left side weakness of his upper extremities and face. PMHX includes A-FIB with pacemaker,HLD, CVA, polysubstance abuse and seizures (possibly ETOH withdrawal) Poor intelligibility with connected speech. Pt given po trials of puree, and mech soft solids with some assistance revealed good acceptance, adequate bolus formation, control and A-P transport. Pharyngeal swallow appears timely with no evidence of aspiration on any consistency offered. Trace of bolus residue leftover in oral cavity after the swallow but cleared with liquids. Thin liquids trials were unremarkable for aspiration at this time. Recommendations - Speech Evaluation, Impression/Plan Impression: 60 yo male presents with reduced speech intelligibility and mild oral phase dysphagia for solids. No evidence of aspiration with pureed, mechanical soft (minced) solids and thin liquids at this time. Veterans Contact Representative Goals: tolerate the least restrictive diet consistency without s/s of aspiration. Improve articulation. Short Term Goals: tolerate mech soft diet consistency and thin liquids without s /s of aspiration. - Dysphagia Impressions/Plan Swallowing Skills: Impaired (Mild) Dysphagia Impressions: Mild Impairment (secondary to left sided weakness and dental status) Dysphagia Treatment Plan: Safe Rate, Elevate HOB during feed, OOB for meals ( Ideally) Dysphagia Evaluation Summary: Offer mechanical soft (minced) solids and thin liquids as tolerated. Observe aspiration precautions. Monitor nutritional intake and pulmonary status. Pt requires some assistance with meals. OOB for meals when possible. Results given to supplier quality engineer Benna and to pcp via chart. - Recommendations Diet Consistency: Dysphagia Minced Medication Administration: Whole with water Liquids: Thin Liquids
--- NOTE | 2016-06-06 16:25 | PN ---
Teaching Attending Note Name of Resident: Jade Chavez ATTENDING PHYSICIAN STATEMENT I saw and evaluated the patient. I reviewed the resident's note and discussed the case with the resident. I agree with the resident's findings and plan as documented. SUBJECTIVE: code silveira for acute left arm and leg "numbness" onset 1330 (+/- 5 minutes) in the ED Was called emergently that patient is having stroke like symptoms. Patient has a prior hx of Stroke, has a residual weakness of Left upper and lower Extremity. Patient is from [facility], was there to have detox for cocaine and was sent to ED. for having Rapid AFIb with RVR. Patient is on anticoagulations due to alcohol dependency and fall and noncompliance. OBJECTIVE: Vital Signs Temperature 98.2 F 06/06/16 10:40 Pulse Rate 88 06/06/16 13:25 Respiratory Rate 20 06/06/16 13:25 Blood Pressure 110/79 06/06/16 13:25 O2 Sat by Pulse Oximetry (%) 100 06/06/16 13:25 GENERAL: The patient is awake, alert, and fully oriented, in no acute distress. HEAD: Normal with no signs of trauma. EYES: sclera anicteric, conjunctiva clear. No ptosis. ENT: oropharynx clear without exudates, moist mucous membranes. NECK: Trachea midline, full range of motion, supple. LUNGS: Breath sounds equal, clear to auscultation bilaterally, no wheezes, no crackles, no accessory muscle use. HEART: Irregular-irregular , S1, S2 without murmur, rub or gallop. ABDOMEN: Obese, soft, nontender, nondistended, normoactive bowel sounds, no guarding, no rebound, no hepatosplenomegaly, no masses. EXTREMITIES: no edema, pulses are 2 plus bl, no Clubbing or cyanosis NEUROLOGICAL: CN2-12 grossly intact , weakness in left arm 4/5 , weakness in LLE 4/5, extraocular movements intact, no facial asymmetry, facial droop. PSYCH: Normal mood, normal affect. SKIN: Warm, dry, normal turgor, no rashes or lesions noted CBCD WBC 6.8 K/mm3 (4.0-10.0) D 06/05/16 21:20 RBC 4.71 M/mm3 (4.00-5.60) 06/05/16 21:20 Hgb 13.4 GM/dL (11.7-16.9) D 06/05/16 21:20 Hct 40.9 % (35.4-49) 06/05/16 21:20 MCV 86.9 fl (80-96) 06/05/16 21:20 MCHC 32.9 g/dl (32.0-35.9) 06/05/16 21:20 RDW 18.0 % (11.9-15.9) H 06/05/16 21:20 Plt Count 173 K/MM3 (134-434) 06/05/16 21:20 MPV 8.4 fl (7.5-11.1) 06/05/16 21:20 CMP Sodium 144 mmol/L (136-145) 06/06/16 14:20 Potassium 3.4 mmol/L (3.5-5.1) L 06/06/16 14:20 Chloride 105 mmol/L (98-107) 06/06/16 14:20 Carbon Dioxide 28 mmol/L (21-32) 06/06/16 14:20 Anion Gap 11 (8-16) 06/06/16 14:20 BUN 12 mg/dL (7-18) 06/06/16 14:20 Creatinine 1.1 mg/dL (0.7-1.3) 06/06/16 14:20 Creat Clearance w eGFR > 60 (>60) 06/06/16 14:20 Random Glucose 177 mg/dL (74-106) H D 06/06/16 14:20 Calcium 8.6 mg/dL (8.5-10.1) 06/06/16 14:20 Total Bilirubin 0.4 mg/dL (0.2-1.0) D 06/06/16 14:20 AST 19 U/L (15-37) D 06/06/16 14:20 ALT 19 U/L (12-78) 06/06/16 14:20 Alkaline Phosphatase 69 U/L (45-117) 06/06/16 14:20 Total Protein 7.1 g/dl (6.4-8.2) 06/06/16 14:20 Albumin 2.9 g/dl (3.4-5.0) L 06/06/16 14:20 CARDIAC ENZYMES Creatine Kinase 112 IU/L (39-308) 06/06/16 14:20 Troponin I 0.02 ng/ml (0.00-0.05) 06/06/16 14:20 Current Medications Generic Name Dose Route Start Last Admin Trade Name Freq PRN Reason Stop Dose Admin Aspirin 325 mg 06/06/16 14:00 06/06/16 13:55 Ecotrin - PO 325 mg DAILY CRISTHIAN Administration Atorvastatin Calcium 10 mg 06/06/16 22:00 Lipitor - PO HS CRISTHIAN Diazepam 5 mg 06/06/16 02:20 Valium - PO TID PRN WITHDRAWAL(CONT SUBST) Diltiazem HCl 240 mg 06/06/16 10:00 06/06/16 09:17 Cardizem Cd - PO 240 mg DAILY CRISTHIAN Administration Folic Acid 1 mg 06/06/16 10:00 06/06/16 09:17 Folic Acid - PO 1 mg DAILY CRISTHIAN Administration Insulin Aspart 1 vial 06/06/16 07:00 06/06/16 07:26 Novolog Vial Sliding Scale - SQ Not Given BIDI [facility] Protocol Levetiracetam 500 mg 06/06/16 10:00 06/06/16 09:17 Keppra - PO 500 mg BID CRISTHIAN Administration Thiamine HCl 100 mg 06/06/16 10:00 06/06/16 09:18 Vitamin B1 - PO 100 mg DAILY CRISTHIAN Administration Home Medications Medication Instructions Recorded Aspirin [ASA -] 81 mg PO DAILY 06/05/16 Diltiazem Cd [Cardizem Cd -] 240 mg PO DAILY 06/05/16 Levetiracetam [Keppra -] 500 mg PO BID 06/05/16 CT scan at 13:34 CT scan of the brain without intravenous contrast. Since 04/04/2011, there remains moderate volume loss and ventricular dilatation. Focal lucency/ encephalomalacia again seen in the left frontal lobe, anteriorly. Interval focal lucency/ encephalomalacia in the left frontal subcortical white matter, laterally with focal widening of a sulcus. No mass lesion, gross acute infarct or intracranial hemorrhage is identified. There is no shift of the midline structures. Visualized paranasal sinuses and mastoid air cells are well- aerated. The calvarium is intact. IMPRESSION: Focal lucency/encephalomalacia again seen in the left frontal lobe, anteriorly. Interval focal lucency/ encephalomalacia was sulcal widening in the left frontal lobe, laterally at the level of the tee radiata and its junction with the centrum semiovale. Otherwise, no gross acute intracranial pathology is identified. Correlate clinically to determine further evaluation and follow-up. 09/24/2014 echo with mild LV systolic dysfunction and mild valvular abnormalities 09/24/2014 no ischemia on stress CT: old left sided frontal infarct with no acute changes. ASSESSMENT AND PLAN: Patient is a 60 year old man with a history polysubstance abuse including ETOH and cocaine, with hx of Afib not on a/c due to noncompliance and ongoing drug abuse, PPM, CVA 2001, seizure disorder presented from [facility] with palpitations in rapid afib without chest pain or dyspnea. # Code Silveira was called at 1330; patient was evaluated immediately and was send for Stat CT at 13:34 where no bleed was reported and the result as above. Neurology and Cardilogy was consulted immediately. # AFib with RVR given Cardizem in ED with controlled rate [id number], Not on Anticoagulation due to fall, etoh dependency and noncompliance CE ordered with negative trops. will start the patient on Aspirin sine patient is a high risk for fall, noncompliance Risk outweighs the benefit. So will start the patient on Aspirin 81mg and suggests to stop drinking and cocaine and alcohol and marijuana use # Poylsubstance abuse (ETOH, cocaine, marijuana);Emphasized importance of medication compliance and abstinence from Drugs on Thiaminae and folic acid # s/p PPMD Interrogate pacer, review records from [facility] # TIA, h/o CVA 2001 # Hx of Seizure disorder on Keppra continue critical care time of 35minutes.
[2016-06-06] MEDS ORDERED: BENZOCAINE/MENTH/CETYLPYRD CL 1 EACH LOZENGE MM PRN (19:53)
[2016-06-06] MEDS ORDERED: ATORVASTATIN CA 10 MG TABLET (FP) PO SCH (22:00)
--- NOTE | 2016-06-07 00:19 | EKG ---
Test Reason : Blood Pressure : / mmHG Vent. Rate : 071 BPM Atrial Rate : 068 BPM P-R Int : 000 ms QRS Dur : 096 ms QT Int : 412 ms P-R-T Axes : 000 027 -03 degrees QTc Int : 447 ms ATRIAL FIBRILLATION NONSPECIFIC T WAVE ABNORMALITY ABNORMAL ECG WHEN COMPARED WITH ECG OF 05-JUN-2016 20:57, VENT. RATE HAS DECREASED BY 58 BPM Confirmed by MARIANNE HALL MD ([id number]) on 06/07/2016 12:18:32 AM Referred By: JESSY VALENCIA Confirmed By:MARIANNE HALL MD
[2016-06-07] MEDS ORDERED: chlordiazePOXIDE HCL 25 MG CAPSULE PO SCH (03:00)
[2016-06-07] MEDS: INSULIN SLIDING SCALE (NOVOLOG) 1 VIAL SQ SCH (06:13)
--- NOTE | 2016-06-07 09:35 | PN ---
Progress Note (short form) - Note Progress Note: Chief Complaint: Events noted, notes reviewed, denies any chest pain or dyspnea , left sided weakness persists but improved History of Present Illness: Seen and examined on telemetry. Events noted, notes reviewed, denies any chest pain or dyspnea, left sided weakness persists but improved Echocardiography performed yesterday revealed mild to moderate reduction in LV EF, dilated LV and RV, moderate MR and TR Medications: Current Medications Aspirin (Ecotrin -) 325 mg PO DAILY [facility] Last Admin: 06/07/16 09:51 Dose: 325 mg Atorvastatin Calcium (Lipitor -) 10 mg PO HS [facility] Last Admin: 06/06/16 21:57 Dose: 10 mg Benzocaine/Menthol (Cepacol Lozenge -) 1 each MM PRN PRN PRN Reason: SORE THROAT Last Admin: 06/06/16 21:58 Dose: 1 each Diazepam (Valium -) 5 mg PO TID PRN PRN Reason: WITHDRAWAL(CONT SUBST) Diltiazem HCl (Cardizem Cd -) 240 mg PO DAILY [facility] Last Admin: 06/07/16 09:51 Dose: 240 mg Folic Acid (Folic Acid -) 1 mg PO DAILY [facility] Last Admin: 06/07/16 09:51 Dose: 1 mg Insulin Aspart (Novolog Vial Sliding Scale -) 1 vial SQ BIDI [facility] PRN Reason: Protocol Last Admin: 06/07/16 06:13 Dose: Not Given Levetiracetam (Keppra -) 500 mg PO BID [facility] Last Admin: 06/07/16 09:51 Dose: 500 mg Thiamine HCl (Vitamin B1 -) 100 mg PO DAILY [facility] Last Admin: 06/07/16 09:51 Dose: 100 mg Review of Systems Constitutional: denies: Chills or Fever Cardiovascular: As noted above Respiratory: denies: Cough or Sputum Production Gastrointestinal: denies: Nausea, Vomiting, Diarrhea, Constipation or Abdominal Pain Genitourinary: No symptoms reported Vital Signs: Last Vital Signs Temp Pulse Resp BP Pulse Ox 97.7 F 99 H 20 133/49 98 06/07/16 02:00 06/07/16 02:00 06/07/16 02:00 06/07/16 02:00 06/06/16 21:00 Constitutional: No Distress, Calm Neck: Supple Negative JVD NO Bruit Respiratory: Diminished at the Bases Cardiovascular: S1 S2 Irregularly Irregular Gastrointestinal: Soft Benign Normal Bowel Sounds Ext: No Edema Labs: CBC, BMP 06/05/16 21:20 06/06/16 14:20 Assessment/Plan ASSESSMENT: 1. Palpitations referable to rapid atrial fibrillation, [id number] score of 4 on no A/C related to issue of compliance with therapy administration and F/U 2. Dilated probable non ischemic cardiomyopathy with class I-II NYHA classification LV failure, compensated 3. 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 History of TIA 5. Left sided weakness probable CVA residual 6. Poly-substance abuse (ETOH, cocaine and marijuana) 7. History of seizure disorder PLAN: 1. Add Coreg and titrate as tolerated 2. Consider Cardizem CD discontinuation related to the above noted LV systolic dysfunction and utilizing B-Blockers 3. Ideally should be on Coumadin therapy as per INR or NOAC's given elevated risk score [id number] score of 4 , otherwise ASA 4. Add ACEI or ARBS 5. Emphasized importance of medication compliance 6. Pacemaker interrogation, to obtain records from [facility] Lyudmila Hollins M.D.
[2016-06-07] MEDS: THIAMINE HCL 100 MG TABLET (FP) PO SCH (09:51)
[2016-06-07] MEDS: ASPIRIN 325 MG ENTERIC COATED TABLET (FP) PO SCH (09:51)
[2016-06-07] MEDS: FOLIC ACID 1 MG TABLET (FP) PO SCH (09:51)
[2016-06-07] MEDS: levETIRAcetam 500 MG TABLET (FP) PO SCH (09:51)
[2016-06-07 10:39] VITALS: PULSE 78
[2016-06-07] MEDS ORDERED: CARVEDILOL 12.5 MG TABLET (FP) PO SCH (12:00)
[2016-06-07] MEDS ORDERED: APIXABAN 5 MG TABLET PO SCH (12:00)
[2016-06-07] MEDS ORDERED: VALSARTAN 40 MG TABLET (FP) PO SCH (12:00)
--- NOTE | 2016-06-07 12:39 | PN ---
[facility] Progress Note (SOAP) Subjective: Pt. was transferred to ED because of AF with rapid VR of 129/min. Pt. was admitted for alcohol detox but admission EKG revealed AF with rapid VR. Pt. has hx of AF on meds,however he's non-compliant because of alcohol and cocaine use. Objective: 06/07/16 12:37 Vital Signs - 8 hr 06/07/16 10:00 Temperature 98 F Pulse Rate 78 Respiratory 18 Rate Blood Pressure 118/86 Laboratory Tests 06/05/16 06/05/16 06/05/16 21:15 21:20 21:20 WBC 6.8 D RBC 4.71 Hgb 13.4 D Hct 40.9 MCV 86.9 MCHC 32.9 RDW 18.0 H Plt Count 173 MPV 8.4 Neutrophils % 55.7 Lymphocytes % 34.6 Monocytes % 7.4 Eosinophils % 1.1 Basophils % 1.2 INR 1.11 PTT (Actin FS) 29.1 D Sodium Potassium Chloride Carbon Dioxide Anion Gap BUN Creatinine Creat Clearance w eGFR POC Glucometer Random Glucose Calcium Magnesium Total Bilirubin AST ALT Alkaline Phosphatase Creatine Kinase Creatine Kinase Index CK-MB (CK-2) CK-MB (CK-2) Rel Index Troponin I Total Protein Albumin Triglycerides Cholesterol Total LDL Cholesterol HDL Cholesterol Urine Color Urine Appearance Urine pH Ur Specific Fountain Urine Protein Urine Glucose (UA) Urine Ketones Urine Blood Urine Nitrite Urine Bilirubin Urine Urobilinogen Ur Leukocyte Esterase Urine RBC Urine WBC Ur Epithelial Cells Urine Mucus Opiates Screen Methadone Screen Barbiturate Screen Phencyclidine Screen Ur Amphetamines Screen MDMA (Ecstasy) Screen Benzodiazepines Screen Cocaine Screen U Marijuana (THC) Screen Alcohol, Quantitative 5.4 H* 06/05/16 06/05/16 06/05/16 21:20 21:20 23:00 WBC RBC Hgb Hct MCV MCHC RDW Plt Count MPV Neutrophils % Lymphocytes % Monocytes % Eosinophils % Basophils % INR PTT (Actin FS) Sodium 141 Potassium 3.7 Chloride 102 Carbon Dioxide 29 Anion Gap 10 BUN 13 Creatinine 1.2 Creat Clearance w eGFR > 60 POC Glucometer Random Glucose 131 H D Calcium 9.0 Magnesium 2.1 Total Bilirubin 0.3 D AST 26 D ALT 21 Alkaline Phosphatase 84 D Creatine Kinase 175 D Creatine Kinase Index 1.4 CK-MB (CK-2) 2.412 CK-MB (CK-2) Rel Index Cancelled Troponin I 0.02 Total Protein 7.9 Albumin 3.3 L Triglycerides Cholesterol Total LDL Cholesterol HDL Cholesterol Urine Color Thelma Urine Appearance Slcloudy Urine pH 5.0 Ur Specific Fountain 1.034 Urine Protein 1+ H Urine Glucose (UA) Negative Urine Ketones Trace H Urine Blood Negative Urine Nitrite Negative Urine Bilirubin 2.0 Urine Urobilinogen 4.0 e.u/dl Ur Leukocyte Esterase Negative Urine RBC 2 Urine WBC 1 Ur Epithelial Cells Rare Urine Mucus Few Opiates Screen Methadone Screen Barbiturate Screen Phencyclidine Screen Ur Amphetamines Screen MDMA (Ecstasy) Screen Benzodiazepines Screen Cocaine Screen U Marijuana (THC) Screen Alcohol, Quantitative 06/05/16 06/06/16 06/06/16 23:00 03:15 06:00 WBC RBC Hgb Hct MCV MCHC RDW Plt Count MPV Neutrophils % Lymphocytes % Monocytes % Eosinophils % Basophils % INR PTT (Actin FS) Sodium Potassium Chloride Carbon Dioxide Anion Gap BUN Creatinine Creat Clearance w eGFR POC Glucometer Random Glucose Calcium Magnesium Total Bilirubin AST ALT Alkaline Phosphatase Creatine Kinase 145 Creatine Kinase Index CK-MB (CK-2) CK-MB (CK-2) Rel Index Troponin I 0.02 Total Protein Albumin Triglycerides 57 D Cholesterol 112 Total LDL Cholesterol 43 D HDL Cholesterol 74 H D Urine Color Urine Appearance Urine pH Ur Specific Fountain Urine Protein Urine Glucose (UA) Urine Ketones Urine Blood Urine Nitrite Urine Bilirubin Urine Urobilinogen Ur Leukocyte Esterase Urine RBC Urine WBC Ur Epithelial Cells Urine Mucus Opiates Screen Negative Methadone Screen Negative Barbiturate Screen Negative Phencyclidine Screen Negative Ur Amphetamines Screen Negative MDMA (Ecstasy) Screen Negative Benzodiazepines Screen Positive Cocaine Screen Positive U Marijuana (THC) Screen Negative Alcohol, Quantitative 06/06/16 06/06/16 06/06/16 07:22 13:47 14:20 WBC RBC Hgb Hct MCV MCHC RDW Plt Count MPV Neutrophils % Lymphocytes % Monocytes % Eosinophils % Basophils % INR 1.12 PTT (Actin FS) 28.2 Sodium Potassium Chloride Carbon Dioxide Anion Gap BUN Creatinine Creat Clearance w eGFR POC Glucometer 130.53960 272.96414 Random Glucose Calcium Magnesium Total Bilirubin AST ALT Alkaline Phosphatase Creatine Kinase Creatine Kinase Index CK-MB (CK-2) CK-MB (CK-2) Rel Index Troponin I Total Protein Albumin Triglycerides Cholesterol Total LDL Cholesterol HDL Cholesterol Urine Color Urine Appearance Urine pH Ur Specific Fountain Urine Protein Urine Glucose (UA) Urine Ketones Urine Blood Urine Nitrite Urine Bilirubin Urine Urobilinogen Ur Leukocyte Esterase Urine RBC Urine WBC Ur Epithelial Cells Urine Mucus Opiates Screen Methadone Screen Barbiturate Screen Phencyclidine Screen Ur Amphetamines Screen MDMA (Ecstasy) Screen Benzodiazepines Screen Cocaine Screen U Marijuana (THC) Screen Alcohol, Quantitative 06/06/16 06/06/16 06/07/16 14:20 17:18 05:28 WBC RBC Hgb Hct MCV MCHC RDW Plt Count MPV Neutrophils % Lymphocytes % Monocytes % Eosinophils % Basophils % INR PTT (Actin FS) Sodium 144 Potassium 3.4 L Chloride 105 Carbon Dioxide 28 Anion Gap 11 BUN 12 Creatinine 1.1 Creat Clearance w eGFR > 60 POC Glucometer 97 100 Random Glucose 177 H D Calcium 8.6 Magnesium Total Bilirubin 0.4 D AST 19 D ALT 19 Alkaline Phosphatase 69 Creatine Kinase 112 Creatine Kinase Index CK-MB (CK-2) CK-MB (CK-2) Rel Index Troponin I 0.02 Total Protein 7.1 Albumin 2.9 L Triglycerides 66 Cholesterol 117 Total LDL Cholesterol 42 HDL Cholesterol 74 H Urine Color Urine Appearance Urine pH Ur Specific Fountain Urine Protein Urine Glucose (UA) Urine Ketones Urine Blood Urine Nitrite Urine Bilirubin Urine Urobilinogen Ur Leukocyte Esterase Urine RBC Urine WBC Ur Epithelial Cells Urine Mucus Opiates Screen Methadone Screen Barbiturate Screen Phencyclidine Screen Ur Amphetamines Screen MDMA (Ecstasy) Screen Benzodiazepines Screen Cocaine Screen U Marijuana (THC) Screen Alcohol, Quantitative labs noted Assessment: 06/07/16 12:38 AF with rapid VR Withdrawal sx. Plan: Continue detox
--- NOTE | 2016-06-07 12:52 | PN ---
Progress Note, Physician History of Present Illness: 60 with documented hx of A-fib, CAD, cocaine, morbid obesity and uncontrolled hypertension was in the ED for evaluation of Chest pain and tachycardia, after abusing cocaine since last night and subsequent onset of left sided sensory loss. CT neg with evidence of old infarction. Today sensory symptoms resolved. Pt voiced an understand that he will continue to have multiple strokes until unless he addresses [facility] addictions including to sugar and is complinat with treatment of the A-fib. - Current Medication List Current Medications: Active Medications Apixaban (Eliquis -) 5 mg PO BID [facility] Last Admin: 06/07/16 12:23 Dose: 5 mg Atorvastatin Calcium (Lipitor -) 10 mg PO HS [facility] Last Admin: 06/06/16 21:57 Dose: 10 mg Benzocaine/Menthol (Cepacol Lozenge -) 1 each MM PRN PRN PRN Reason: SORE THROAT Last Admin: 06/06/16 21:58 Dose: 1 each Carvedilol (Coreg -) 12.5 mg PO BID [facility] Last Admin: 06/07/16 12:23 Dose: 12.5 mg Diazepam (Valium -) 5 mg PO TID [facility] Stop: 06/07/16 22:01 Diazepam (Valium -) 5 mg PO BID [facility] Stop: 06/08/16 22:01 Diazepam (Valium -) 5 mg PO DAILY [facility] Stop: 06/09/16 10:01 Folic Acid (Folic Acid -) 1 mg PO DAILY [facility] Last Admin: 06/07/16 09:51 Dose: 1 mg Insulin Aspart (Novolog Vial Sliding Scale -) 1 vial SQ BIDI [facility] PRN Reason: Protocol Last Admin: 06/07/16 06:13 Dose: Not Given Levetiracetam (Keppra -) 500 mg PO BID [facility] Last Admin: 06/07/16 09:51 Dose: 500 mg Thiamine HCl (Vitamin B1 -) 100 mg PO DAILY [facility] Last Admin: 06/07/16 09:51 Dose: 100 mg Valsartan (Diovan -) 40 mg PO DAILY [facility] Last Admin: 06/07/16 12:23 Dose: 40 mg - Objective Vital Signs: Vital Signs Temperature 98 F 06/07/16 10:00 Pulse Rate 78 06/07/16 10:00 Respiratory Rate 18 06/07/16 10:00 Blood Pressure 118/86 02/07/17 10:00 O2 Sat by Pulse Oximetry (%) 98 06/06/16 21:00 Constitutional: Yes: Obese HENT: Yes: Atraumatic Neurological: Yes: Alert, Oriented. No: Aphasia, Ataxia, Dysarthria, Facial Droop, Loss of Sensation, Numbness, Weakness Labs: CBC, BMP 06/06/16 14:20 INR, PTT INR 1.12 (0.82-1.09) 06/06/16 14:20 Assessment/Plan No evidence of acute cerebral infarction Reviewed with patient Stroke education provided in addition to lipid, glucose, BP, and weight control , strongly encouraged patient to stop the cocaine use TIA care excluded cardiac etiology per cardiology and vascular disease per IM with carotid doppler antip-platelet treatment and LIPID, GLUCOSE, OBESITY and hypertension treatment deferred to the management of the primary care team Suggest CD psychiatry consultation for addiction treatment Currently, no acute neurological event therefore will sign off, if needed please call
[2016-06-07] MEDS ORDERED: diazePAM 5 MG TABLET PO SCH (14:00)
[2016-06-07 15:27] VITALS: BP 139/54; TEMP 98.3
--- NOTE | 2016-06-07 16:02 | DS ---
Physical Exam: SUBJECTIVE: Patient seen and examined. The pt is feeling good. Denies weakness, dizziness, problems with vision. OBJECTIVE: Vital Signs Period Temp Pulse Resp BP Sys/Griffin Pulse Ox Last 24 Hr 97.0 F-98.3 F 67-99 18-20 117-139/49-92 97-98 PHYSICAL EXAM GENERAL: The patient is awake, alert, and fully oriented, in no acute distress. HEAD: Normal with no signs of trauma. EYES: PERRL, extraocular movements intact, sclera anicteric, conjunctiva clear. ENT: Ears normal, nares patent, oropharynx clear without exudates, moist mucous membranes. NECK: Trachea midline, full range of motion, supple. LUNGS: Breath sounds equal, clear to auscultation bilaterally, no wheezes, no crackles, no accessory muscle use. HEART: Irregular rate and rhythm, S1, S2 without murmur, rub or gallop. ABDOMEN: Obese, soft, nontender, nondistended, normoactive bowel sounds, no guarding, no rebound, no hepatosplenomegaly, no masses. EXTREMITIES: no edema. NEUROLOGICAL: Slurred speech, 4/5 weakness in LUE, no sensation changes, no facial asymmetry, gait not observed. PSYCH: Normal mood, normal affect. SKIN: Warm, dry, normal turgor, no rashes. LABS Laboratory Results - last 24 hr 06/06/16 06/07/16 17:18 05:28 POC Glucometer 97 100 HOSPITAL COURSE: Date of Admission:06/06/16 Date of Discharge: 06/07/16 Minutes to complete discharge: 50 Discharge Summary Reason For Visit: AF ATRIAL FIBRILLATION, ALCOHOL DEPENDENCE, COCAIN Current Active Problems Alcohol dependence with uncomplicated withdrawal (Acute) Anxiety and depression (Acute) Cocaine dependence (Acute) Old cerebrovascular accident (CVA) without late effect (Acute) S/p small bowel obstruction (Acute) Hospital Course: Patient is a 60 year old male with a PMHx of A.fib (non-compliant with medication) with pacemaker, HLD, CVA, and polysubstance abuse with alcohol withdrawal seizures who was brought from [facility] for palpitations. Patient found to have A.fib with RVR 129BPM. Patient admitted to telemetry for further monitoring and management. Hospital course:Atrial Fibrillation with RVR: [id number] score: 3, continued home medication 240mg PO, cardiac monitoring, troponinsx3 neg. Polysubstance Abuse; Toxicology positive for ETOH, Cocaine and Benzo's. We started Valium 10mg TID PRN ordered as patient is unable to tolerate Librium, Detox consulted Dr. Norton, continue Thiamine 100mg daily, Folic Acid 1gm daily. The pt complained of weakness while eating. Code lopez was initiated. We recheck EKG-no changes, carotid doppler-neg, ECHO, cardiology and neurology consulted. the acute CVA was excluded. The pt improved clinically. We recommended stopping Cardizem, continue Coreg, Elaquis and Valsartan as outpatient. Stopped ASA. We counseled him about cocaine and other substance abuse and serious interactions with bblockers. He was discharged to [facility] to continue rehab. Condition: Improved - Instructions Diet, Activity, Other Instructions: Please take your medications everyday. It is very important that you always remember to take them. We also recommend to see primary care physician in a week. Please avoid taking any illicid drugs because of the medications that we prescribe for you, especially Coreg. if you have chest pain, palpitations, shortness of breath, bleeding, dizziness, vision problems, weakness come to Emergency Room as soon as possible. Dont take aspirin. Disposition: TRANSFER ACUTE CARE/OTHER HOSP - Home Medications Comprehensive Discharge Medication List: Ambulatory Orders Levetiracetam [Keppra -] 500 mg PO BID 06/05/16 Apixaban [Eliquis -] 5 mg PO BID tablet 06/07/16 Aspirin Coated [Ecotrin -] 325 mg PO DAILY tablet. 06/07/16 Atorvastatin Ca [Lipitor] 10 mg PO HS tablet 06/07/16 Carvedilol [Coreg -] 12.5 mg PO BID tablet 06/07/16 Diazepam [Valium] 5 mg PO BID tablet MDD 15 06/07/16 Diazepam [Valium] 5 mg PO DAILY tablet MDD 10 06/07/16 Diazepam [Valium] 5 mg PO TID tablet MDD 06/07/16 Folic Acid - 1 mg PO DAILY tablet 06/07/16 Valsartan [Diovan] 40 mg PO DAILY tablet 06/07/16 Problem List - Problems (1) Alcohol dependence with uncomplicated withdrawal Code(s): F10.230 - ALCOHOL DEPENDENCE WITH WITHDRAWAL, UNCOMPLICATED (2) Cocaine dependence Code(s): F14.20 - COCAINE DEPENDENCE, UNCOMPLICATED Qualifiers: Substance use status: uncomplicated Qualified Code(s): F14.20 - Cocaine dependence, uncomplicated (3) AF Atrial fibrillation Code(s): I48.91 - UNSPECIFIED ATRIAL FIBRILLATION This patient is new to me today: No Emergency Visit: Yes ED Registration Date: 06/06/16 Care time: The patient presented to the Emergency Department on the above date and was hospitalized for further evaluation of their emergent condition. Critical Care patient: No - Discharge Referral Referred to [facility] No
--- NOTE | 2016-06-07 16:49 | PN ---
Teaching Attending Note Name of Resident: Jade Chavez ATTENDING PHYSICIAN STATEMENT I saw and evaluated the patient. I reviewed the resident's note and discussed the case with the resident. I agree with the resident's findings and plan as documented. SUBJECTIVE: Comfortable with no acute distress, no shortness of breath. OBJECTIVE: Vital Signs Temperature 98.3 F 06/07/16 15:23 Pulse Rate 78 06/07/16 15:23 Respiratory Rate 20 06/07/16 15:23 Blood Pressure 139/54 06/07/16 15:23 O2 Sat by Pulse Oximetry (%) 97 06/07/16 11:00 GENERAL: The patient is awake, alert, and fully oriented, in no acute distress. HEAD: Normal with no signs of trauma. EYES: sclera anicteric, conjunctiva clear. No ptosis. ENT: oropharynx clear without exudates, moist mucous membranes. NECK: Trachea midline, full range of motion, supple. LUNGS: Breath sounds equal, clear to auscultation bilaterally, no wheezes, no crackles, no accessory muscle use. HEART: Irregular-irregular , S1, S2 without murmur, rub or gallop. ABDOMEN: Obese, soft, nontender, nondistended, normoactive bowel sounds, no guarding, no rebound, no hepatosplenomegaly, no masses. EXTREMITIES: no edema, pulses are 2 plus bl, no Clubbing or cyanosis NEUROLOGICAL: CN2-12 grossly intact , weakness in left arm 4/5 , weakness in LLE 4/5, extraocular movements intact, no facial asymmetry, facial droop. PSYCH: Normal mood, normal affect. SKIN: Warm, dry, normal turgor, no rashes or lesions noted CBCD WBC 6.8 K/mm3 (4.0-10.0) D 06/05/16 21:20 RBC 4.71 M/mm3 (4.00-5.60) 06/05/16 21:20 Hgb 13.4 GM/dL (11.7-16.9) D 06/05/16 21:20 Hct 40.9 % (35.4-49) 06/05/16 21:20 MCV 86.9 fl (80-96) 06/05/16 21:20 MCHC 32.9 g/dl (32.0-35.9) 06/05/16 21:20 RDW 18.0 % (11.9-15.9) H 06/05/16 21:20 Plt Count 173 K/MM3 (134-434) 06/05/16 21:20 MPV 8.4 fl (7.5-11.1) 06/05/16 21:20 CMP Sodium 144 mmol/L (136-145) 06/06/16 14:20 Potassium 3.4 mmol/L (3.5-5.1) L 06/06/16 14:20 Chloride 105 mmol/L (98-107) 06/06/16 14:20 Carbon Dioxide 28 mmol/L (21-32) 06/06/16 14:20 Anion Gap 11 (8-16) 06/06/16 14:20 BUN 12 mg/dL (7-18) 06/06/16 14:20 Creatinine 1.1 mg/dL (0.7-1.3) 06/06/16 14:20 Creat Clearance w eGFR > 60 (>60) 06/06/16 14:20 Random Glucose 177 mg/dL (74-106) H D 06/06/16 14:20 Calcium 8.6 mg/dL (8.5-10.1) 06/06/16 14:20 Total Bilirubin 0.4 mg/dL (0.2-1.0) D 06/06/16 14:20 AST 19 U/L (15-37) D 06/06/16 14:20 ALT 19 U/L (12-78) 06/06/16 14:20 Alkaline Phosphatase 69 U/L (45-117) 06/06/16 14:20 Total Protein 7.1 g/dl (6.4-8.2) 06/06/16 14:20 Albumin 2.9 g/dl (3.4-5.0) L 06/06/16 14:20 CARDIAC ENZYMES Creatine Kinase 112 IU/L (39-308) 06/06/16 14:20 Troponin I 0.02 ng/ml (0.00-0.05) 06/06/16 14:20 CT scan of the brain without intravenous contrast. Since 04/04/2011, there remains moderate volume loss and ventricular dilatation. Focal lucency/ encephalomalacia again seen in the left frontal lobe, anteriorly. Interval focal lucency/ encephalomalacia in the left frontal subcortical white matter, laterally with focal widening of a sulcus. No mass lesion, gross acute infarct or intracranial hemorrhage is identified. There is no shift of the midline structures. Visualized paranasal sinuses and mastoid air cells are well- aerated. The calvarium is intact. IMPRESSION: Focal lucency/encephalomalacia again seen in the left frontal lobe, anteriorly. Interval focal lucency/ encephalomalacia was sulcal widening in the left frontal lobe, laterally at the level of the tee radiata and its junction with the centrum semiovale. Otherwise, no gross acute intracranial pathology is identified. Correlate clinically to determine further evaluation and follow-up. 09/24/2014 echo with mild LV systolic dysfunction and mild valvular abnormalities 09/24/[address] no ischemia on stress CT: old left sided frontal infarct with no acute changes. ASSESSMENT AND PLAN: Patient is a 60 year old man with a history polysubstance abuse including ETOH and cocaine, with hx of Afib not on a/c due to noncompliance and ongoing drug abuse, PPM, CVA 2001, seizure disorder presented from [facility] with palpitations in rapid afib without chest pain or dyspnea. # AFib with rate controlled now, as per heel stiffener , patient was placed on Coreg 12.5mg po bid and Eliquis 5mg po bid since [id number], In case that the patient refuses the meds, then he should be on aspirin 325mg since patient is high risk for another stroke. No aspirin with Eliquis # Poylsubstance abuse (ETOH, cocaine, marijuana);Emphasized importance of medication compliance and abstinence from Drugs on Thiaminae and folic acid # s/p PPMD Interrogate pacer, review records from [facility] # TIA, h/o CVA 2001 # Hx of Seizure disorder on Keppra continue getting transferred to [facility].
[2016-06-08] MEDS ORDERED: chlordiazePOXIDE 5 MG CAPSULE PO SCH (03:00)
[2016-06-08] MEDS ORDERED: diazePAM 5 MG TABLET PO SCH (10:00)
[2016-06-09] MEDS ORDERED: diazePAM 5 MG TABLET PO SCH (10:00)
== END 2016-06-07 15:38 | disposition other institution (70) | DRG 201 ==
LOC: JER 20:50 → JERBED 06-06 01:06 → J4W 06-06 13:09 → JERBED 06-06 13:09 → J4W 06-06 14:55
PROVIDERS: ADMIT Internal Medicine; ATTEND Internal Medicine
DX: I48.91 Unspecified atrial fibrillation (principal); Z95.0 Presence of cardiac pacemaker; Z91.14 Patient's other noncompliance with medication regimen; E78.5 Hyperlipidemia, unspecified; Z86.73 Personal history of transient ischemic attack (TIA), and cerebral infarction without residual deficits; Z87.891 Personal history of nicotine dependence; F14.10 Cocaine abuse, uncomplicated; F10.10 Alcohol abuse, uncomplicated; Y90.9 Presence of alcohol in blood, level not specified; R20.9 Unspecified disturbances of skin sensation; E66.01 Morbid (severe) obesity due to excess calories; Z68.42 Body mass index [BMI] 45.0-49.9, adult
CPT/HCPCS: 36415; 70450-TC; 71010-TC; 80053; 80061; 80307; 81003; 81015; 82550; 82553; 83721; 83735; 84484; 85025; 85610; 85730; 93005; 93010; 93306-TC; 93880-TC; 97116-GP; 97161-GP; 99285-25

== ENCOUNTER 2016-06-07 16:30 | Inpatient (IN) | payer OTHER ==
[2016-06-07 16:52] VITALS: BMI 48.0
--- NOTE | 2016-06-07 17:08 | HP ---
[facility] Rehab Assess/Revision - Admission History Admitted to Rehab from: Medical/Surgical Date of Admission to Rehab: 06/07/16 - Vital signs Vital Signs: Vital Signs Period Temp Pulse Resp BP Sys/Griffin Pulse Ox Last 24 Hr 97.7 F 75 22 118/78 - Findings Detox History & Physical reviewed: Yes Concur with findings: Yes Comments/Additional Findings: for continuing detox as protocol,patient was admitted on [facility] 06/05/16. for alcohol and cocaine detox,transferred to [facility] with rapid atrial fibrillation from 06/05/16 to 06/07/16,. dr Topher real called,admit to [address]
[2016-06-07] MEDS ORDERED: ACETAMINOPHEN 325 MG TABLET (FP) PO PRN (17:09)
[2016-06-07] MEDS ORDERED: hydrOXYzine PAMOATE 25 MG CAPSULE (FP) PO PRN (17:09)
[2016-06-07] MEDS ORDERED: MAGNESIUM HYDROX 2400MG/30ML ORAL SUSPENSION 30 ML CUP PO PRN (17:09)
[2016-06-07] MEDS ORDERED: MAGNESIUM CITRATE 300 ML BOTTLE PO PRN (17:09)
[2016-06-07] MEDS ORDERED: diphenhydrAMINE HCL 50 MG CAPSULE PO PRN (17:09)
[2016-06-07] MEDS ORDERED: MAG HYDROX/AL HYDROX/SIMETH 30 ML UNIT-DOSE CUP PO PRN (17:09)
[2016-06-07] MEDS ORDERED: MENTHOL/PHENOL 1 EACH UD MM PRN (17:09)
[2016-06-07] MEDS ORDERED: IBUPROFEN 400 MG TABLET (FP) PO PRN (17:09)
[2016-06-07] MEDS ORDERED: guaiFENesin/D-METHORPHAN HB 10 ML UNIT-DOSE CUPS PO PRN (17:09)
[2016-06-07] MEDS ORDERED: P-EPHED 60MG/TRIPROLIDI 2.5MG TABLET PO PRN (17:09)
[2016-06-07] MEDS ORDERED: LOPERAMIDE HCL 2 MG CAPSULE PO PRN (17:09)
[2016-06-07] MEDS ORDERED: diazePAM 5 MG TABLET PO ONE (22:00)
[2016-06-07] MEDS: CARVEDILOL 12.5 MG TABLET (FP) PO SCH (22:33)
[2016-06-07] MEDS: levETIRAcetam 500 MG TABLET (FP) PO SCH (22:33)
[2016-06-07] MEDS: ATORVASTATIN CA 10 MG TABLET (FP) PO SCH (22:33)
[2016-06-07] MEDS: THIAMINE HCL 100 MG TABLET (FP) PO SCH (22:33)
[2016-06-07] MEDS: APIXABAN 5 MG TABLET PO SCH (22:33)
[2016-06-08 10:14] LABS: ALBUMIN 3.3 g/dl (3.4-5.0); ANION GAP 11 (8-16); CALCIUM 9.1 mg/dL (8.5-10.1); CO2 27 mmol/L (21-32); GLUCOSE,RANDOM 131 mg/dL (74-106); SGPT/ALT 27 U/L (12-78)
[2016-06-08 10:17] LABS: ALK PHOS 77 U/L (45-117); BILIRUBIN,TOTAL 0.3 mg/dL (0.2-1.0); SGOT/AST 32 U/L (15-37); TOT PROT 7.4 g/dl (6.4-8.2)
[2016-06-08 10:25] LABS: MCH 28.7 pg (25.7-33.7); MCHC 32.2 g/dl (32.0-35.9); MEAN CELL VOLUME 89.1 fl (80-96); MEAN PLT VOLUME 8.8 fl (7.5-11.1); PLATELET COUNT 169 K/MM3 (134-434); RDW 18.1 % (11.9-15.9); WHITE BLOOD COUNT 6.1 K/mm3 (4.0-10.0)
[2016-06-08] MEDS: CARVEDILOL 12.5 MG TABLET (FP) PO SCH ×2 (10:59→21:28)
[2016-06-08] MEDS: levETIRAcetam 500 MG TABLET (FP) PO SCH ×2 (10:59→21:27)
[2016-06-08] MEDS: APIXABAN 5 MG TABLET PO SCH ×2 (10:59→21:28)
[2016-06-08] MEDS: VALSARTAN 40 MG TABLET (FP) PO SCH (10:59)
[2016-06-08] MEDS: PRENATAL VITAMINS W/ FOLIC ACID TABLET (FP) PO SCH (11:00)
--- NOTE | 2016-06-08 11:26 | PN ---
S Progress Note (SOAP) Subjective: DECREASED ANXIETY, SWEATS. Objective: 06/08/16 11:25 Vital Signs Temperature 95.9 F L 06/08/16 09:52 Pulse Rate 54 L 06/08/16 09:52 Respiratory Rate 18 06/08/16 09:52 Blood Pressure 122/78 06/08/16 09:52 O2 Sat by Pulse Oximetry (%) Laboratory Last Values WBC 6.1 K/mm3 (4.0-10.0) 06/08/16 07:00 RBC 4.29 M/mm3 (4.00-5.60) 06/08/16 07:00 Hgb 12.3 GM/dL (11.7-16.9) 06/08/16 07:00 Hct 38.2 % (35.4-49) 06/08/16 07:00 MCV 89.1 fl (80-96) 06/08/16 07:00 MCHC 32.2 g/dl (32.0-35.9) 06/08/16 07:00 RDW 18.1 % (11.9-15.9) H 06/08/16 07:00 Plt Count 169 K/MM3 (134-434) 06/08/16 07:00 MPV 8.8 fl (7.5-11.1) 06/08/16 07:00 Sodium 143 mmol/L (136-145) 06/08/16 07:00 Potassium 3.8 mmol/L (3.5-5.1) 06/08/16 07:00 Chloride 105 mmol/L (98-107) 06/08/16 07:00 Carbon Dioxide 27 mmol/L (21-32) 06/08/16 07:00 Anion Gap 11 (8-16) 06/08/16 07:00 BUN 10 mg/dL (7-18) 06/08/16 07:00 Creatinine 1.0 mg/dL (0.7-1.3) 06/08/16 07:00 Creat Clearance w eGFR > 60 (>60) 06/08/16 07:00 Random Glucose 131 mg/dL (74-106) H D 06/08/16 07:00 Calcium 9.1 mg/dL (8.5-10.1) 06/08/16 07:00 Total Bilirubin 0.3 mg/dL (0.2-1.0) D 06/08/16 07:00 AST 32 U/L (15-37) D 06/08/16 07:00 ALT 27 U/L (12-78) D 06/08/16 07:00 Alkaline Phosphatase 77 U/L (45-117) 06/08/16 07:00 Total Protein 7.4 g/dl (6.4-8.2) 06/08/16 07:00 Albumin 3.3 g/dl (3.4-5.0) L 06/08/16 07:00 Assessment: 06/08/16 11:25 WITHDRAWAL SX Plan: CONTINUE DETOX
--- NOTE | 2016-06-08 13:28 | EKG ---
Test Reason : Blood Pressure : / mmHG Vent. Rate : 056 BPM Atrial Rate : 288 BPM P-R Int : 000 ms QRS Dur : 096 ms QT Int : 428 ms P-R-T Axes : 000 021 023 degrees QTc Int : 413 ms ATRIAL FIBRILLATION WITH SLOW VENTRICULAR RESPONSE WITH FREQUENT ventricular-paced complexes ABNORMAL ECG ELECTRONIC VENTRICULAR PACEMAKER Confirmed by WIL TELLES MD ([id number]) on 06/08/2016 1:28:08 PM Referred By: Confirmed By:WIL TELLES MD
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
[2016-06-08 19:21] LABS: URINE APPEARANCE SLCLOUDY; URINE BILIRUBIN NEGATIVE (NEGATIVE); URINE BLOOD NEGATIVE (NEGATIVE); URINE COLOR YELLOW; URINE GLUCOSE (UA) NEGATIVE (NEGATIVE); URINE KETONE NEGATIVE (NEGATIVE); URINE LEUK ESTERASE NEGATIVE (NEGATIVE); URINE NITRITE NEGATIVE (NEGATIVE); URINE PROTEIN NEGATIVE (NEGATIVE); URINE UROBILINOGEN NEGATIVE E.U./dl (0.2-1.0)
[2016-06-08] MEDS: ATORVASTATIN CA 10 MG TABLET (FP) PO SCH (21:27)
[2016-06-08] MEDS: THIAMINE HCL 100 MG TABLET (FP) PO SCH (21:28)
[2016-06-08] MEDS ORDERED: diazePAM 5 MG TABLET PO SCH (22:00)
[2016-06-09] MEDS ORDERED: diazePAM 5 MG TABLET PO ONE (06:00)
[2016-06-09] MEDS: APIXABAN 5 MG TABLET PO SCH ×2 (10:54→23:12)
[2016-06-09] MEDS: levETIRAcetam 500 MG TABLET (FP) PO SCH ×2 (10:55→23:12)
[2016-06-09] MEDS: VALSARTAN 40 MG TABLET (FP) PO SCH (10:55)
[2016-06-09] MEDS: PRENATAL VITAMINS W/ FOLIC ACID TABLET (FP) PO SCH (10:55)
[2016-06-09] MEDS: CARVEDILOL 12.5 MG TABLET (FP) PO SCH ×2 (10:55→23:12)
--- NOTE | 2016-06-09 11:50 | PN ---
[facility] Progress Note (SOAP) Subjective: ANXIETY, HEADACHE, INTERMITTENT SLEEP. Objective: 06/09/16 11:49 Vital Signs Temperature 97.9 F 06/09/16 10:28 Pulse Rate 85 06/09/16 10:28 Respiratory Rate 18 06/09/16 10:28 Blood Pressure 124/81 06/09/16 10:28 O2 Sat by Pulse Oximetry (%) Assessment: 06/09/16 11:49 WITHDRAWAL SX Plan: CONTINUE DETOX
[2016-06-09] MEDS: THIAMINE HCL 100 MG TABLET (FP) PO SCH (23:12)
[2016-06-09] MEDS: ATORVASTATIN CA 10 MG TABLET (FP) PO SCH (23:12)
[2016-06-10 06:35] VITALS: TEMP 97.2
[2016-06-10] MEDS: levETIRAcetam 500 MG TABLET (FP) PO SCH (09:27)
[2016-06-10] MEDS: CARVEDILOL 12.5 MG TABLET (FP) PO SCH (09:27)
[2016-06-10] MEDS: PRENATAL VITAMINS W/ FOLIC ACID TABLET (FP) PO SCH (09:27)
[2016-06-10] MEDS: APIXABAN 5 MG TABLET PO SCH (09:28)
[2016-06-10] MEDS: VALSARTAN 40 MG TABLET (FP) PO SCH (09:28)
--- NOTE | 2016-06-10 10:00 | DS ---
[facility] Detox Discharge Summary Admission Date: 06/07/16 Discharge Date: 06/10/16 - History Present History: Alcohol Dependence, Cocaine Dependence Additional Comments: DETOX COMPLETED. ALERT O X3. NAD. PT ENCOURAGED TO F/U WITH PMD AT [facility] FOR MANAGEMENT OF HIS COMORBID CONDITIONS. STATES HAS HIS MEDS AT HOME. Pertinent Past History: ATRIAL FIB HTN S/P PACE MAKER OLD CVA SEIZURE DISORDER MORBID OBESITY ASTHMA S/P UPPER GI BLEEDING S/P SMALL BOWEL OBSTRUCTION - Physical Exam Results Vital Signs: Vital Signs Temperature 97.2 F L 06/10/16 06:34 Pulse Rate 60 06/10/16 06:34 Respiratory Rate 18 06/10/16 06:34 Blood Pressure 142/97 06/10/16 06:34 O2 Sat by Pulse Oximetry (%) Pertinent Admission Physical Exam Findings: WITHDRAWAL SX Laboratory Last Values WBC 6.1 K/mm3 (4.0-10.0) 06/08/16 07:00 RBC 4.29 M/mm3 (4.00-5.60) 06/08/16 07:00 Hgb 12.3 GM/dL (11.7-16.9) 06/08/16 07:00 Hct 38.2 % (35.4-49) 06/08/16 07:00 MCV 89.1 fl (80-96) 06/08/16 07:00 MCHC 32.2 g/dl (32.0-35.9) 06/08/16 07:00 RDW 18.1 % (11.9-15.9) H 06/08/16 07:00 Plt Count 169 K/MM3 (134-434) 06/08/16 07:00 MPV 8.8 fl (7.5-11.1) 06/08/16 07:00 Sodium 143 mmol/L (136-145) 06/08/16 07:00 Potassium 3.8 mmol/L (3.5-5.1) 06/08/16 07:00 Chloride 105 mmol/L (98-107) 06/08/16 07:00 Carbon Dioxide 27 mmol/L (21-32) 06/08/16 07:00 Anion Gap 11 (8-16) 06/08/16 07:00 BUN 10 mg/dL (7-18) 06/08/16 07:00 Creatinine 1.0 mg/dL (0.7-1.3) 06/08/16 07:00 Creat Clearance w eGFR > 60 (>60) 06/08/16 07:00 Random Glucose 131 mg/dL (74-106) H D 06/08/16 07:00 Calcium 9.1 mg/dL (8.5-10.1) 06/08/16 07:00 Total Bilirubin 0.3 mg/dL (0.2-1.0) D 06/08/16 07:00 AST 32 U/L (15-37) D 06/08/16 07:00 ALT 27 U/L (12-78) D 06/08/16 07:00 Alkaline Phosphatase 77 U/L (45-117) 06/08/16 07:00 Total Protein 7.4 g/dl (6.4-8.2) 06/08/16 07:00 Albumin 3.3 g/dl (3.4-5.0) L 06/08/16 07:00 Urine Color Yellow 06/08/16 12:00 Urine Appearance Slcloudy 06/08/16 12:00 Urine pH 5.0 (5.0-8.0) 06/08/16 12:00 Ur Specific [place] 1.023 (1.001-1.035) 06/08/16 12:00 Urine Protein Negative (NEGATIVE) 06/08/16 12:00 Urine Glucose (UA) Negative (NEGATIVE) 06/08/16 12:00 Urine Ketones Negative (NEGATIVE) 06/08/16 12:00 Urine Blood Negative (NEGATIVE) 06/08/16 12:00 Urine Nitrite Negative (NEGATIVE) 06/08/16 12:00 Urine Bilirubin Negative (NEGATIVE) 06/08/16 12:00 Urine Urobilinogen Negative E.U./dl (0.2-1.0) 06/08/16 12:00 Ur Leukocyte Esterase Negative (NEGATIVE) 06/08/16 12:00 RPR Titer Reactive 1:1 (NONREACTIVE) H 06/08/16 07:00 T.pallidum Ab (MHA) Previously reactive (NONREACTIVE) 06/08/16 07:00 - Treatment Hospital Course: Detox Protocol Followed, Detoxed Safely, Responded well, Discharged Condition Good - Medication Discharge Medications: Ambulatory Orders Levetiracetam [Keppra -] 500 mg PO BID 06/05/16 Apixaban [Eliquis -] 5 mg PO BID tablet 06/07/16 Atorvastatin Ca [Lipitor] 10 mg PO HS tablet 06/07/16 Carvedilol [Coreg -] 12.5 mg PO BID tablet 06/07/16 Valsartan [Diovan] 40 mg PO DAILY tablet 06/07/16 - Diagnosis (1) Alcohol dependence with uncomplicated withdrawal Current Visit: Yes Status: Acute (2) AF Atrial fibrillation Current Visit: Yes Status: Chronic (3) Cocaine dependence Current Visit: Yes Status: Chronic Qualifiers: Substance use status: uncomplicated Qualified Code(s): F14.20 - Cocaine dependence, uncomplicated (4) Morbid obesity Current Visit: Yes Status: Chronic (5) Old cerebrovascular accident (CVA) without late effect Current Visit: Yes Status: Chronic (6) Seizure disorder Current Visit: Yes Status: Chronic (7) s/p pacemaker Current Visit: Yes Status: Chronic (8) Asthma Current Visit: No Status: Chronic (9) HTN (hypertension) Current Visit: Yes Status: Chronic Qualifiers: Hypertension type: essential hypertension Qualified Code(s): I10 - Essential (primary) hypertension (10) Nicotine dependence Current Visit: Yes Status: Chronic Qualifiers: Nicotine product type: cigarettes Substance use status: in withdrawal Qualified Code(s): F17.213 - Nicotine dependence, cigarettes, with withdrawal - AMA Did Patient Leave Against Medical Advice: No
[2016-06-10 10:49] VITALS: BP 150/93; PULSE 82
== END 2016-06-10 09:44 | disposition home or self-care (01) | DRG 774 ==
LOC: YASAS 16:30 → Y3N 17:40
PROVIDERS: ADMIT Internal Medicine; ATTEND Internal Medicine
PROC: HZ2ZZZZ Detoxification Services for Substance Abuse Treatment (ICD-10-PCS; principal; 2016-06-10)
DX: F10.230 Alcohol dependence with withdrawal, uncomplicated (principal); F14.20 Cocaine dependence, uncomplicated; F17.213 Nicotine dependence, cigarettes, with withdrawal; I48.91 Unspecified atrial fibrillation; Z79.01 Long term (current) use of anticoagulants; I10 Essential (primary) hypertension; G40.909 Epilepsy, unspecified, not intractable, without status epilepticus; J45.20 Mild intermittent asthma, uncomplicated; Z86.73 Personal history of transient ischemic attack (TIA), and cerebral infarction without residual deficits; Z95.0 Presence of cardiac pacemaker; E66.01 Morbid (severe) obesity due to excess calories; Z68.42 Body mass index [BMI] 45.0-49.9, adult
CPT/HCPCS: 36415; 80053; 81003; 85027; 86593; 86780; 93005; 93010

== ENCOUNTER 2016-06-10 12:11 | Inpatient (IN) | payer OTHER ==
[2016-06-10 12:48] VITALS: BMI 45.9
--- NOTE | 2016-06-10 14:05 | PDOC ---
History of Present Illness - General Chief Complaint: Chest Pain Stated Complaint: CHEST PAIN Time Seen by Provider: 06/10/16 13:32 History Source: Patient Exam Limitations: No Limitations - History of Present Illness Initial Comments: 06/10/16 14:01 60y M hx of afib on eliquis, cva with residual l sided weakness, htn, sz, presents to the ED with chest pain. Pt states he awoke feeling well, when he was walking to the bus, he developed a left sided pressure/squeezing chest pain that was 6/10 asociate dwith an episode of vomiting, improved with rest and with ntg by EMS. Pt also given baby asa by EMS. No associated sob, diaphoresis , leg swelling, fever/chills. No prior history of chest pain on exertion before , no known cardiac disease - states last stress test was in 2001. Pts Docs are all at [facility]. pt also endorses that since yesterday he started having some difficulty with his speech that it isnt as smooth as it use to be. pt states he had this probablem wiht his initial stroke, but it improveed substantially, but 4 months ago it came and went. pt states starting yesterday he began again with questionable increasd LUE weakness. (pt states he has weakness on his LUE and LLE at [place], but is typically able to bmulate without any assiting devices. Past History - Past Medical History Allergies/Adverse Reactions: Allergies Allergy/AdvReac Type Severity Reaction Status Date / Time chlordiazepoxide AdvReac Intermediate Nausea & Verified 06/07/16 16:52 Vomiting Home Medications: Ambulatory Orders Levetiracetam [Keppra -] 500 mg PO BID 06/05/16 Anemia: No Asthma: No Cancer: No Cardiac Disorders: Yes (pacemaker) CVA: Yes (IN 2001 WITH LEFT SIDE EFFECT. NO RESIDUAL WEAKNESS) COPD: No CHF: No Dementia: No Diabetes: No GI Disorders: No Disorders: No HTN: Yes Hypercholesterolemia: Yes Kidney Stones: No Liver Disease: No Suicide Attempt (Hx): No Seizures: Yes (etoh related seizures last 12/14) Thyroid Disease: No - Surgical History Abdominal Surgery: Yes (intestinal obstruction in 06/2002) Appendectomy: No Cardiac Surgery: Yes (pacemaker inplace from 2001) Cholecystectomy: No Lung Surgery: No Neurologic Surgery: No Orthopedic Surgery: No - Reproductive History Testicular Surgery: No - Psycho/Social/Smoking Cessation Hx Anxiety: Yes Suicidal Ideation: No Smoking Status: Yes Smoking History: Former smoker Have you smoked in the past 12 months: No Number of Cigarettes Smoked Daily: 0 If you are a former smoker, when did you quit?: 2005 Cigars Per Day: 0 Information on smoking cessation initiated: No 'Breaking Loose' booklet given: 06/05/16 Hx Alcohol Use: No Drug/Substance Use Hx: No Substance Use Type: Alcohol, Cocaine Hx Substance Use Treatment: Yes Cardiac Specific PMH - Complaint Specific PMHX Pacemaker: Yes (in 2002 for sick sinus syndrome,had battery change in 08/10( GOOD FOR 7 YRS)) Review of Systems - Review of Systems Able to Perform ROS?: Yes Comments:: 06/10/16 15:04 Constitutional - no reported Fever, Chills, weakness, HEENT: no reported vision changes, sore throat Respiratory: no reported cough, sob, hemoptysis Cardiac: +chest pain, no reported palpitations, light headedness, leg swelling Abd/GI: +vomiting no reported abd pain, nausea, , blood per rectum, melena, diarrhea : no reported dysuria, frequency, discharge Musculskelatal - no reported back pain, joint swelling skin - no reported bruising, erythema, rash neurological: +slightly increased weakness of LUE, +increased word finding no reported headache, numbness, tingling, ataxia, hematologic: no reported anemia, easy bruising, easy bleeding *Physical Exam - Vital Signs Last Vital Signs Temp Pulse Resp BP Pulse Ox 71 18 111/90 97 06/10/16 12:15 06/10/16 12:15 06/10/16 12:15 06/10/16 12:15 - Physical Exam Comments: 06/10/16 15:13 GENERAL: The patient is awake, alert, and fully oriented, Nontoxic - in no acute distress. HEAD: Normocephalic, atraumatic. EYES: extraocular movements intact, sclera anicteric, conjunctiva clear. ENT: Normal voice, Moist mucous membranes. NECK: Normal range of motion, supple LUNGS: Breath sounds equal, clear to auscultation bilaterally. No wheezes, no rhonchi, no rales. HEART: Regular rate and rhythm, normal S1 and S2 without murmur, rub or gallop. ABDOMEN: Soft, nontender, normoactive bowel sounds. No guarding, no rebound. . No CVA tenderness EXTREMITIES: Normal range of motion, no edema. No clubbing or cyanosis. No cords, erythema, or tenderness. NEUROLOGICAL: No facial assymetry, LUE 4/5, LLE 5/5, RUE/RLE 5/5, sensation intact throughout. +occasional word finding/stuttering SKIN: Warm, Dry, normal turgor, Heart Score/ECG Review - History History: Moderately suspicious - Electrocardiogram EKG: Non specific repolarization disturbance - Age Age: 45-65 - Risk Factors Risk Factors Heart Score: Yes Hx Hypercholesterolemia, Yes Hx Hypertension, Yes Hx Diabetes Based on the list above the patient has:: >/=3 risk factors or Hx atherosclerotic disease - Troponin Troponin: </= normal limit - Score Heart Score - Total: 5 - ECG Impressions Comment:: 06/10/16 16:27 Twelve-lead EKG was performed and reviewed by me. Atrial fibrillation Rate of 75 The axis is normal. The intervals are normal. There is normal R wave progression There are no ST or T wave abnormalities. Impression: A. fib ED Treatment Course - LABORATORY CBC & Chemistry Diagram: 06/10/16 15:08 06/10/16 15:08 - ADDITIONAL ORDERS Additional order review: Laboratory Results 06/10/16 06/10/16 15:08 15:08 INR 1.30 H Sodium 144 Potassium 4.2 Chloride 109 H Carbon Dioxide 28 Anion Gap 7 L BUN 10 Creatinine 1.0 Creat Clearance w eGFR > 60 Random Glucose 84 D Calcium 9.0 Total Bilirubin 0.3 AST 24 D ALT 24 Alkaline Phosphatase 70 Creatine Kinase 74 Troponin I 0.12 H D Total Protein 7.1 Albumin 3.0 L 06/10/16 15:08 RBC 4.19 MCV 89.0 MCHC 32.4 RDW 18.2 H MPV 8.0 Neutrophils % 55.7 Lymphocytes % 31.5 Monocytes % 9.1 Eosinophils % 2.2 D Basophils % 1.5 - RADIOLOGY Radiology Studies Ordered: Category Date Time Status HEAD CT WITHOUT CONTRAST [CT] Stat CT Scan 06/10/16 15:45 Completed CHEST X-RAY PORTABLE* [RAD] Stat Radiology 06/10/16 14:05 Completed Medical Decision Making - Medical Decision Making 06/10/16 16:18 60y M hx of afib on eliquis, cva w/ residual l sided weakness, htn, sz, presents with exertional cp this morning associated with 1 episode of vomiting, also with complaints of increasing word finding since yesterday, possible increased weakness in his LUE. The patient's exam reveals intermittently stuttering speech, the patient does have some weakness of the left upper and left lower extremity however unclear how much of this is old or new. The patient's exam was otherwise unremarkable. Concern for possible acute coronary syndrome with his complaint of exertional chest pain Troponin 1 is 0.12. His EKG reveals A. fib without any signs of acute ischemia Will place [id number] risk stratification of his chest pain. case d/w dr. Lance, agree with tele observation. pt s/p asa Case discussed in detail with admitting physician including history, physical exam and ancillary studies. Admitting physician has assumed care for the patient, will follow all pending diagnostics and will complete the evaluation and treatment. *DC/Admit/Observation/Transfer Diagnosis at time of Disposition: Atrial fibrillation Qualifiers: Atrial fibrillation type: chronic Qualified Code(s): I48.2 - Chronic atrial fibrillation Chest pain Qualifiers: Chest pain type: unspecified Qualified Code(s): R07.9 - Chest pain, unspecified - Discharge Dispostion Condition at time of disposition: Guarded Admit: Yes Decision to Admit order Date/Time: Decision to Admit Order Category Date Time Status Decision to Admit to Hospital Routine Admission 06/10/16 16:31 Active - Referrals Referrals: STAFF,NOT ON [Primary Care Provider] - NIH Stroke Scale - Last Known Well Date/Time & Onset Date Last Known Well: 06/08/16 Time Last Known Well: 20:00 - Initial Evaluation Level of consciousness: Alert Ask patient the month and their age: Answers both correctly Ask patient to open & close eyes; make fist and let go: Obeys both correctly Best gaze (horizontal eye movement): Normal Visual field testing: No visual field loss Facial paresis (Show teeth/raise eyebrows/close eyes tight): Normal symmetrical movement Motor Function: Left Arm: Normal Motor Function: Right Arm: Normal (extends arm 90 (or 45) degrees for 10 seconds without drift Motor Function: Left Leg: Normal (extends leg 30 degrees for 5 seconds without drift) Motor Function: Right Leg: Normal (extends leg 30 degrees for 5 seconds without drift) Limb Ataxia: No ataxia Sensory(Use pinprick test arms,legs,trunk,face/side to side): Normal Best language (Describe picture, name items, read sentences): Mild to moderate aphasia Dysarthria (read several words): Normal articulation Extinction and Inattention: No abnormality - Total Score NIH Stroke Scale Score: 1
[2016-06-10 15:23] LABS: BASOPHIL 1.5 % (0-2.0); EOSINOPHIL 2.2 % (0-4.5); MCH 28.9 pg (25.7-33.7); MCHC 32.4 g/dl (32.0-35.9); NEUTROPHILS 55.7 % (42.8-82.8); PLATELET COUNT 194 K/MM3 (134-434); RDW 18.2 % (11.9-15.9); WHITE BLOOD COUNT 5.8 K/mm3 (4.0-10.0)
[2016-06-10 15:42] LABS: INR 1.3 (0.82-1.09); PROTHROMBIN TIME (PATIENT) 14.4 SEC (9.98-11.88)
[2016-06-10 15:43] LABS: ANION GAP 7 (8-16); BILIRUBIN,TOTAL 0.3 mg/dL (0.2-1.0); CO2 28 mmol/L (21-32); GLUCOSE,RANDOM 84 mg/dL (74-106); SGOT/AST 24 U/L (15-37); SGPT/ALT 24 U/L (12-78); TOT PROT 7.1 g/dl (6.4-8.2)
[2016-06-10 15:45] LABS: ALK PHOS 70 U/L (45-117); TROPONIN I 0.12 ng/ml (0.00-0.05)
--- NOTE | 2016-06-10 15:45 | EKG ---
Test Reason : Blood Pressure : / mmHG Vent. Rate : 075 BPM Atrial Rate : 070 BPM P-R Int : 000 ms QRS Dur : 086 ms QT Int : 408 ms P-R-T Axes : 000 029 027 degrees QTc Int : 455 ms POOR DATA QUALITY, INTERPRETATION MAY BE ADVERSELY AFFECTED ATRIAL FIBRILLATION ABNORMAL ECG Confirmed by JESS MCWILLIAMS MD ([id number]) on 06/10/2016 3:45:03 PM Referred By: Confirmed By:JESS MCWILLIAMS MD
[2016-06-10 17:26] LABS: URINE MARIJUANA THC NEGATIVE ng/ml (CUTOFF=50)
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
--- NOTE | 2016-06-10 18:56 | PN ---
Teaching Attending Note Name of Resident: Kemi Aponte ATTENDING PHYSICIAN STATEMENT I saw and evaluated the patient. I reviewed the resident's note and discussed the case with the resident. I agree with the resident's findings and plan as documented. SUBJECTIVE: This is a 60-year-old man with a history of atrial fibrillation, HTN , seizures who comes to the ER with pressure and sharp pain in the left side of his chest. Symptoms started while walking two blocks to the bus. It was associated with nausea and was relieved by SLNTG given by EMS. OBJECTIVE: Vital Signs Period Temp Pulse Resp BP Sys/Griffin Pulse Ox Last 24 Hr 98.3 F 71 18 111/90 97 HEART: Irregularly irregular LUNGS: Clear ABDOMEN: Obese, soft, non-tender, non-distended, normal BS EXTREMITIES: No edema ASSESSMENT AND PLAN: This is a 60-year-old man with a history of atrial fibrillation, HTN, seizures who presented to the ER complaining of chest pain. 1. Chest pain - Monitor on telemetry - Serial troponins - Start aspirin - Continue Coreg, Lipitor - Cardiology consult 2. Permanent atrial fibrillation - Rate controlled - Continue Coreg, Eliquis 3. History of CVA - Continue Lipitor - Start aspirin 4. Hypertension - Continue Lisbeth Diovan 5. Seizure disorder - Continue Keppra 6. History of pacemaker 7. Polysubstance abuse
[2016-06-10] MEDS ORDERED: ASPIRIN 325 MG TABLET PO SCH (19:15)
[2016-06-10] MEDS: THIAMINE HCL 100 MG TABLET (FP) PO SCH (21:41)
[2016-06-10] MEDS: levETIRAcetam 500 MG TABLET (FP) PO SCH (21:41)
[2016-06-10] MEDS: APIXABAN 5 MG TABLET PO SCH (21:41)
[2016-06-10] MEDS: CARVEDILOL 12.5 MG TABLET (FP) PO SCH (21:41)
[2016-06-10] MEDS ORDERED: ATORVASTATIN CA 10 MG TABLET (FP) PO SCH (22:00)
[2016-06-11 00:18] LABS: TROPONIN I 0.11 ng/ml (0.00-0.05)
[2016-06-11 08:58] LABS: MCH 28.7 pg (25.7-33.7); MCHC 32.4 g/dl (32.0-35.9); MEAN CELL VOLUME 88.5 fl (80-96); PLATELET COUNT 207 K/MM3 (134-434); RDW 18.2 % (11.9-15.9); WHITE BLOOD COUNT 5.3 K/mm3 (4.0-10.0)
[2016-06-11 09:21] LABS: CALCIUM 9.2 mg/dL (8.5-10.1); CREATININE 1.1 mg/dL (0.7-1.3)
[2016-06-11 09:29] LABS: MAGNESIUM 2.2 mg/dL (1.8-2.4)
[2016-06-11 09:39] LABS: TROPONIN I 0.11 ng/ml (0.00-0.05)
[2016-06-11] MEDS ORDERED: VALSARTAN 40 MG TABLET (FP) PO SCH (10:00)
[2016-06-11] MEDS: THIAMINE HCL 100 MG TABLET (FP) PO SCH (10:09)
[2016-06-11] MEDS: APIXABAN 5 MG TABLET PO SCH (10:09)
[2016-06-11] MEDS: CARVEDILOL 12.5 MG TABLET (FP) PO SCH (10:09)
[2016-06-11] MEDS: levETIRAcetam 500 MG TABLET (FP) PO SCH (10:09)
--- NOTE | 2016-06-11 10:47 | PN ---
Teaching Attending Note Name of Resident: Jade Chavez ATTENDING PHYSICIAN STATEMENT I saw and evaluated the patient. I reviewed the resident's note and discussed the case with the resident. I agree with the resident's findings and plan as documented. SUBJECTIVE: no fever or chills , no abd pain , no CP , now . reports that cp lasted for one hour, to the resident this am , he reported his pain was intermittent and still present . yesterday he denied any bleeding to the admitting attending , now he reports hematemesis x 2 waiting fro ambulance . Also , vomited in ER with no blood . no abd pain , no diarrhea , denies melena or hematochezia . no SOB , no light headedness, denies any new weakness. he has old L sided weakness with no worsening . OBJECTIVE: NAD , AAOx3 . CV : irreg irreg . No JVD Lungs : CATB Abd : soft, minimal tenderness in epigastric area , with no rebound tenderness or guarding. Rectal: NL hair distribution , stool felt in rectum with no masses . FOBT neg Ext : no edema Neuro : AAox3 , no facial droop , tongue at mid line , nl facial sensation , round equal pupils reactive to light . Strength :LUE : 4/5 biceps , 5/5 triceps , 5/5 shoulder abduction , 5/5 hand health insurance assessor RUE:5/5 biceps , 5/5 triceps , 5/5 shoulder abduction , 5/5 hand health insurance assessor LLE: 4/5 hip flexion , 5/5 knee extention and flelxion , 5/5 ankle plantr-flexion and dorsiflexion RLE: 5/5 hip flexion , 5/5 knee extention and flelxion , 5/5 ankle plantr-flexion and dorsiflexion Reflexes : 2+ knee jerk and bicpeps b/l ASSESSMENT AND PLAN: 60 y/o man with h/o A fib, not compliant , illicit drug use , stroke , HTN and epilepsy who presented with CP. 1- CP : atypical in nature , reproducible on Dr. Geronimo exam. EKG with no acute ischemic changes, and trop < 0.5 and trending down. I do not suspect a PE or aortic dissection at this time as he is not tachycardic , not hypoxic and his story is not typical. - cont coreg - no further w/u needed , had echo last admisison - BNP elevated , cxray on my review with no congestion , he has no JVD or crackles or LE edema . There is no indication of heart failure 2- A fib: not compliant . with h/o Stroke . CHADSVASC score of 3 ( stroke and HTN ) - cont NOAC - cont coreg . rate is controlled on tele 3- Complaints of hematemesis : I wonder if this is true as his story changes each time and with each provider. vomitus in ER did not have any blood. rectal exam by me was neg for blood . Hb stable since yesterday, no tachycardia , and no more vomiting. ( if he vomited 2 cups of blood per his claim, this data would have been different ) - can start PPI at dc - advise against ETOh/Drug use 4- h/o CVA : no new deficit on exam. head CT with no acute changes. no further w /u 5- h/o drug and alcohol use , finished detox yesterday. discharged from rehab dispo : dc home today CAse was d/w Dr. Hollins
[2016-06-11 11:23] VITALS: TEMP 97.8
--- NOTE | 2016-06-11 11:43 | PN ---
Progress Note (short form) - Note Progress Note: Chief Complaint: Reported chest pain, claiming vomiting blood Hematemesis History of Present Illness: Seen and examined on telemetry. Full consult dictated Echocardiography performed yesterday revealed mild to moderate reduction in LV EF, dilated LV and RV, moderate MR and TR Medications: Current Medications Apixaban (Eliquis -) 5 mg PO BID [facility] Last Admin: 06/11/16 10:09 Dose: 5 mg Atorvastatin Calcium (Lipitor -) 10 mg PO HS [facility] Last Admin: 06/10/16 21:41 Dose: 10 mg Carvedilol (Coreg -) 12.5 mg PO BID [facility] Last Admin: 06/11/16 10:09 Dose: 12.5 mg Levetiracetam (Keppra -) 500 mg PO BID [facility] Last Admin: 06/11/16 10:09 Dose: 500 mg Thiamine HCl (Vitamin B1 -) 100 mg PO DAILY [facility] Last Admin: 06/11/16 10:09 Dose: 100 mg Valsartan (Diovan -) 40 mg PO DAILY [facility] Last Admin: 06/11/16 10:09 Dose: 40 mg Review of Systems Constitutional: denies: Chills or Fever Cardiovascular: As noted above Respiratory: denies: Cough or Sputum Production Gastrointestinal: reported: Hematemesis denies: Diarrhea, Constipation or Abdominal Pain Genitourinary: No symptoms reported Vital Signs: Last Vital Signs Temp Pulse Resp BP Pulse Ox 97.8 F 79 18 109/55 98 06/11/16 10:00 06/11/16 10:00 06/11/16 10:00 06/11/16 10:00 06/11/16 09:00 Constitutional: No Distress, Calm Neck: Supple Negative JVD NO Bruit Respiratory: Diminished at the Bases Cardiovascular: S1 S2 Irregularly Irregular Gastrointestinal: Soft Benign Normal Bowel Sounds Ext: No Edema Labs: Troponin, BNP 06/10/16 06/10/16 06/11/16 15:08 23:30 08:00 Troponin I 0.12 H D 0.11 H Cancelled B-Natriuretic Peptide 06/11/16 08:15 Troponin I 0.11 H B-Natriuretic Peptide 1057.86 H CBC, BMP 06/11/16 08:15 06/11/16 08:15 INR, PTT INR 1.30 (0.82-1.09) H 06/10/16 15:08 Assessment/Plan ASSESSMENT: 1. Chest pain syndrome atypical for CAD angina pectoris, probably musculo- skeletal 2. Stated Hematemesis with no documentation and stable Hg 3. Persistent atrial fibrillation, [id number] score of 4 on A/C therapy with NOAC's 4. Dilated non ischemic cardiomyopathy with chronic class I-II NYHA classification LV failure, compensated (elevated Troponin I indeterminent range no clinical evidence of ACS) 5. 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 History of TIA/CVA 7. History of seizure disorder 8. Poly-substance abuse (ETOH, cocaine and marijuana) PLAN: 1. Continue Coreg 2. Continue Diovan 3. Continue Eliquis unless it is absolutely contraindicated given elevated risk score [id number] score of 4 4. No additional evaluation is recommended for the above noted elevated Troponin I 5. To F/U with own csr retail at [facility] ([facility]) Lyudmila Hollins M.D.
--- NOTE | 2016-06-11 13:39 | CONS ---
DATE OF CONSULTATION: 06/11/2016 REQUESTING PHYSICIAN: Hospitalist. CHIEF COMPLAINT: Chest pain, cardiovascular evaluation. HISTORY OF PRESENT ILLNESS: Patient is known to our service from a recent hospitalization. This 60-year-old morbidly obese -[place] male, with known history of dilated nonischemic cardiomyopathy, with chronic class 1-2 [place] Heart [employer] classification left ventricular failure, persistent atrial fibrillation [id number] score of 4 on anticoagulation therapy with Eliquis initiated recently, sinus no dysfunction, AV clarence disease, post permanent pacemaker implantation, cerebrovascular disease, seizure disorder, history of polysubstance abuse, who was recently discharged from drug rehabilitation, presented to [facility] with complaints of retrosternal chest discomfort described as sharp pain, which was exacerbated by certain movements. Patient denied any exacerbation with physical exertion. Patient denied any associated diaphoresis. Patient, in addition, claimed that he had two episodes of vomiting bright red blood. Patient had an episode of vomiting in the emergency room, but there was no blood detected. Patient reports dyspnea with moderate physical exertion. Patient denies any orthopnea, paroxysmal nocturnal dyspnea, or peripheral edema. Patient denies any palpitations, dizziness, lightheadedness, or syncope. Patient denies any fatigue or tiredness. Patient admits to lack of exercise. Patient demonstrated poor compliance with medical followup in addition therapy administration in the past. His primary wellness director is at [facility]. PAST MEDICAL HISTORY: Dilated nonischemic cardiomyopathy with chronic class 1- 2 [place] Heart [employer] classification left ventricular failure, persistent atrial fibrillation on anticoagulation therapy with Eliquis, post permanent pacemaker implantation for probable AV clarence disease, history of transient ischemic attack , CVA, history of seizure disorder, history of substance abuse. SOCIAL HISTORY: Substance abuse as noted above. FAMILY HISTORY: No history of coronary artery disease. ALLERGIES: CHLORDIAZEPOXIDE. MEDICAL THERAPY: Currently includes: 1. Eliquis 5 mg twice a day. 2. Lipitor 10 mg once a day. 3. Coreg 12.5 mg twice a day. 4. Keppra 50 mg twice a day. 5. Vitamin B1 at 100 mg once a day. 6. Diovan 40 mg once a day. REVIEW OF SYSTEMS: Head and neck: Denies headache, photophobia, blurring of vision. Respiratory: No cough or sputum production. Cardiovascular: As noted above. Gastrointestinal: As noted above. Genitourinary: No symptoms reported. Musculoskeletal: No symptoms reported. PHYSICAL EXAMINATION: Vital signs: Blood pressure is 109/55 mmHg, pulse rate is 79 beats per minute. Head and neck: Pupils are equally reactive to light and accommodation. Extraocular muscles are intact. Anicteric sclerae. Negative JVD. No bruit appreciated. Chest: Clear to auscultation percussion. Cardiovascular: S1, S2 irregularly irregular. No murmurs appreciated. Abdomen: Soft, benign. Normoactive bowel sounds. Extremities: Negative edema. Intact distal pulses. No calf tenderness. STUDIES: Troponin I level was noted at 0.12 and 0.11, indeterminate zone, B- type natriuretic peptide was 1,057. CBC revealed a white cell count of 5.3, hemoglobin 12.1, platelet count 207. Basic metabolic profile revealed a sodium of 143, potassium 4.0, BUN 12, creatinine 1.1, glucose 137. INR 1.30. EKG revealed atrial fibrillation with non-specific T-wave abnormality. ASSESSMENT: 1. Chest pain syndrome, atypical coronary artery disease, angina pectoris, probably musculoskeletal in origin. 2. Stated hematemesis with no documentation and stable hemoglobin. 3. Persistent atrial fibrillation, CHADS VASc score of 4 on anticoagulation therapy with Eliquis. 4. Dilated nonischemic cardiomyopathy with chronic class 1-2 [place] Heart [employer] classification left ventricular failure, compensated. 5. Post permanent pacemaker implantation, probably atrioventricular clarence disease. 6. History of transient ischemic attack, cerebrovascular accident. 7. History of seizure disorder. 8. History of polysubstance abuse. RECOMMENDATION: 1. Continuation of Coreg. 2. Continuation of Diovan. 3. Continuation of Eliquis unless it is absolutely contraindicated given elevated [id number] score of 4. 4. No intervention indicated for the above noted troponin I level elevation which is in the indeterminate zone. 5. Patient to follow up with his own wellness director at [facility]. Thank you for the kind referral. KERI JAMES M.D. WILSON/[id number] MTDD
--- NOTE | 2016-06-11 13:54 | CONSULT ---
Consult - History of Present Illness History of Present Illness: left arm - Past Medical History ARBORIST: Yes: CVA, Seizure Cardio/Vascular: Yes: AFIB, CAD (unclear), HTN Psych: Yes: Other (polysubstance abuse (ETOH and Cocaine)) - Alcohol/Substance Use Hx Alcohol Use: No History of Substance Use: reports: Cocaine (last one 8 months ago as per pt), Marijuana - Smoking History Smoking history: Former smoker Have you smoked in the past 12 months: No Aproximately how many cigarettes per day: 0 If you are a former smoker, when did you quit?: 2005 - Social History Usual Living Arrangement: Other (brother and sister) ADL: Family Assistance History of Recent Travel: No Home Medications - Allergies Allergies/Adverse Reactions: Allergies Allergy/AdvReac Type Severity Reaction Status Date / Time chlordiazepoxide AdvReac Intermediate Nausea & Verified 06/07/16 16:52 Vomiting - Home Medications Home Medications: Ambulatory Orders Apixaban [Eliquis -] 5 mg PO BID #60 tablet 06/11/16 Atorvastatin Ca [Lipitor] 10 mg PO HS #30 tablet 06/11/16 Carvedilol [Coreg -] 12.5 mg PO BID #60 tablet 06/11/16 Levetiracetam [Keppra -] 500 mg PO BID #60 tablet 06/11/16 Pantoprazole Sodium [Protonix -] 20 mg PO DAILY #30 tablet.ec 06/11/16 Thiamine HCl [Vitamin B1 -] 100 mg PO DAILY #30 tablet 06/11/16 Valsartan [Diovan] 40 mg PO DAILY 30 Days 06/11/16 Family Disease History - Family Disease History Family Disease History: Other: Father (alzheimer, 2012, Stroke), Mother ( CA OF BEAST,RENAL FAILURE,), Sister (alzheimer, , Kidney Ca) Physical Exam Vital Signs: Vital Signs Temperature 97.8 F 06/11/16 10:00 Pulse Rate 79 06/11/16 10:00 Respiratory Rate 18 06/11/16 10:00 Blood Pressure 109/55 06/11/16 10:00 O2 Sat by Pulse Oximetry (%) 98 06/11/16 09:00 Labs: CBC, BMP 06/11/16 08:15 06/11/16 08:15
--- NOTE | 2016-06-11 14:03 | CONSULT ---
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: CVA, Seizure Cardio/Vascular: Yes: CAD (unclear), HTN Psych: Yes: Other (polysubstance abuse (ETOH and Cocaine)) - Alcohol/Substance Use Hx Alcohol Use: No History of Substance Use: reports: Cocaine (last one 8 months ago as per pt), Marijuana - Smoking History Smoking history: Former smoker Have you smoked in the past 12 months: No Aproximately how many cigarettes per day: 0 If you are a former smoker, when did you quit?: 2005 - Social History Usual Living Arrangement: Other (brother and sister) ADL: Family Assistance History of Recent Travel: No Home Medications - Allergies Allergies/Adverse Reactions: Allergies Allergy/AdvReac Type Severity Reaction Status Date / Time chlordiazepoxide AdvReac Intermediate Nausea & Verified 06/07/16 16:52 Vomiting - Home Medications Home Medications: Ambulatory Orders Apixaban [Eliquis -] 5 mg PO BID #60 tablet 06/11/16 Atorvastatin Ca [Lipitor] 10 mg PO HS #30 tablet 06/11/16 Carvedilol [Coreg -] 12.5 mg PO BID #60 tablet 06/11/16 Levetiracetam [Keppra -] 500 mg PO BID #60 tablet 06/11/16 Pantoprazole Sodium [Protonix -] 20 mg PO DAILY #30 tablet.ec 06/11/16 Thiamine HCl [Vitamin B1 -] 100 mg PO DAILY #30 tablet 06/11/16 Valsartan [Diovan] 40 mg PO DAILY 30 Days 06/11/16 Family Disease History - Family Disease History Family Disease History: Other: Father (alzheimer, 2012, Stroke), Mother ( CA OF BEAST,RENAL FAILURE,), Sister (alzheimer, , Kidney Ca) Physical Exam Vital Signs: Vital Signs Temperature 97.8 F 06/11/16 10:00 Pulse Rate 79 06/11/16 10:00 Respiratory Rate 18 06/11/16 10:00 Blood Pressure 109/55 06/11/16 10:00 O2 Sat by Pulse Oximetry (%) 98 06/11/16 09:00 Neurological: Yes: WNL, Alert, Oriented, Cran Nerves II-XII Intact. No: Aphasia , Ataxia, Dysarthria, Facial Droop, Loss of Sensation, Unsteady Gait, Weakness ( DTR 1/4 with downgoing plantar responses) Labs: CBC, BMP 06/11/16 08:15 06/11/16 08:15 Assessment/Plan Possible peripheral nerve compression that would require outpatient evaluation with no evidence of acute stroke neurologically stable for discharge F/U with Dr Dominguez for EMG/NCV
[2016-06-11 14:05] VITALS: BP 139/75; PULSE 89
--- NOTE | 2016-06-11 14:45 | DS ---
Physical Exam: SUBJECTIVE: Patient seen and examined. He is still complaining of chest pain radiating to his back. The pain is sharp, 5/10, intermittent, lasts 10 minutes. No N/V,diarrhea, constipation. OBJECTIVE: Vital Signs Period Temp Pulse Resp BP Sys/Griffin Pulse Ox Last 24 Hr 97.8 F-98.1 F 72-95 18-20 102-154/55-80 98-98 PHYSICAL EXAM GENERAL: The patient is awake, alert, and fully oriented, in no acute distress. HEAD: Normal with no signs of trauma. EYES: PERRL, extraocular movements intact, sclera anicteric, conjunctiva clear. ENT: Ears normal, nares patent, oropharynx clear without exudates, moist mucous membranes. NECK: Trachea midline, full range of motion, supple. LUNGS: Breath sounds equal, clear to auscultation bilaterally, no wheezes, no crackles, no accessory muscle use. HEART: Irregular rate and rhythm, S1, S2 without murmur, rub or gallop. ABDOMEN: Obese, soft, nontender, nondistended, normoactive bowel sounds, no guarding, no rebound, no hepatosplenomegaly, no masses. EXTREMITIES: 2+ pulses, warm, well-perfused, no edema. NEUROLOGICAL: Cranial nerves II through XII grossly intact. Slurred speech, nl gait. Motor: RUE 5/5, LUE; adduction, abduction5/5, flexion of elbow 4/5, extension 5/5, RLE:5/5, LLE: 4/5. Sensation intact to light touch. DTRs nl; biceps and knee. PSYCH: Normal mood, normal affect. SKIN: Warm, dry, normal turgor, no rashes or lesions noted. LABS Laboratory Results - last 24 hr 06/10/16 06/11/16 06/11/16 23:30 08:00 08:15 WBC 5.3 RBC 4.23 Hgb 12.1 Hct 37.4 MCV 88.5 MCHC 32.4 RDW 18.2 H Plt Count 207 MPV 8.0 Sodium Potassium Chloride Carbon Dioxide Anion Gap BUN Creatinine POC Glucometer Random Glucose Calcium Phosphorus Magnesium Creatine Kinase 73 Cancelled Troponin I 0.11 H Cancelled B-Natriuretic Peptide 06/11/16 06/11/16 08:15 11:50 WBC RBC Hgb Hct MCV MCHC RDW Plt Count MPV Sodium 143 Potassium 4.0 Chloride 107 Carbon Dioxide 28 Anion Gap 8 BUN 12 Creatinine 1.1 POC Glucometer 125 Random Glucose 137 H D Calcium 9.2 Phosphorus 4.0 Magnesium 2.2 Creatine Kinase 69 Troponin I 0.11 H B-Natriuretic Peptide 1057.86 H HOSPITAL COURSE: Date of Admission:06/10/16 Date of Discharge: 06/11/16 Minutes to complete discharge: 50 Discharge Summary Reason For Visit: CHEST PAIN Current Active Problems Atrial fibrillation (Acute) Chest pain (Acute) Hospital Course: Patient is a 60 year old male with a PMHx of A.fib (non-compliant with medication) with pacemaker, HLD, CVA, and polysubstance abuse with alcohol withdrawal seizures, epilepsy 1972 and last seizure 2014, recent admission at [facility] for Afib, was brought via ambulance for CP. He reports episode of CP after walking two blocks and waiting on the bus stop. The pain was sharp 8/10 pain, greater than 1 hour, decreased to now 5/10, intermittent, lasting 10 minutes, radiating to left arm and shoulder(numbness). No sob, diaphoresis. patient reports one episode of green vomits and tinged in bright red blood and feeling lightheaded and dizzy. He reports a base line of difficulty speaking 6 months( CVA) that has been improving, yesterday he reports difficulty speaking, progressed to this morning were he was unable to speak. patient was recently admitted here for palpitations and A.fib with RVR at [facility] and discharged to [facility] for detox. during last admission vale lopez called for weakness and patient cleared for a new acute stroke per neurology. Patient did admit to having a pint of vodka and cocaine (both last use one week ago).The patient denies fever, chills, cough, hemoptysis, diaphoresis, shortness of breath, headache. The patient denies jaw/ back pain lower extremity pain/swelling, calf tenderness/pain. The patient denies recent travel , recent surgery, recent immobilization. Hospital course: He was admitted to telemetry for atypical chest pain r/o ACS. EKG showed no new changes, elevated troponons x2, indeterminent range and no clinical evidence of ACS, no additional evaluation was recommended, ECHO showed mild to moderate reduction in LV EF, dilated LV and RV, moderate MR and TR, cardiology consulted. His hematemesis was not documented/witnessed, he changed the description and what happened. His Hgb was stable and OB stool was negative. We ordered Pantoprazole. For his a.Fib we continued his home medications. He was discharged with recommendation to take his medications regularly and f/u with PCP, Breaker Machine Tender. and Mayonnaise Mixer. Condition: Improved - Instructions Diet, Activity, Other Instructions: Please take your medications everyday. It is very important that you always remember to take them. We also recommend to see primary care physician in a week. We recommend seeing GI specialist and Mayonnaise Mixer in 2 weeks. Please avoid taking any illicid drugs and drink alcohol. If you have chest pain, palpitations, shortness of breath, bleeding, dizziness, vision problems, weakness come to Emergency Room as soon as possible. Referrals: Lyudmila Hollins MD [Staff Physician] - 2 Weeks Zoe Quick MD [Staff Physician] - 2 Weeks STAFF,NOT ON [Primary Care Provider] - 1 Week (Dr Martins in [facility]) Disposition: HOME - Home Medications Comprehensive Discharge Medication List: Ambulatory Orders Apixaban [Eliquis -] 5 mg PO BID #60 tablet 06/11/16 Atorvastatin Ca [Lipitor] 10 mg PO HS #30 tablet 06/11/16 Carvedilol [Coreg -] 12.5 mg PO BID #60 tablet 06/11/16 Levetiracetam [Keppra -] 500 mg PO BID #60 tablet 06/11/16 Pantoprazole Sodium [Protonix -] 20 mg PO DAILY #30 tablet.ec 06/11/16 Thiamine HCl [Vitamin B1 -] 100 mg PO DAILY #30 tablet 06/11/16 Valsartan [Diovan] 40 mg PO DAILY 30 Days 06/11/16 Problem List - Problems (1) Atrial fibrillation Code(s): I48.91 - UNSPECIFIED ATRIAL FIBRILLATION Qualifiers: Atrial fibrillation type: chronic Qualified Code(s): I48.2 - Chronic atrial fibrillation (2) Chest pain Code(s): R07.9 - CHEST PAIN, UNSPECIFIED Qualifiers: Chest pain type: unspecified Qualified Code(s): R07.9 - Chest pain, unspecified (3) Cocaine dependence Code(s): F14.20 - COCAINE DEPENDENCE, UNCOMPLICATED Qualifiers: Substance use status: uncomplicated Qualified Code(s): F14.20 - Cocaine dependence, uncomplicated (4) HTN (hypertension) Code(s): I10 - ESSENTIAL (PRIMARY) HYPERTENSION Qualifiers: Hypertension type: essential hypertension Qualified Code(s): I10 - Essential (primary) hypertension (5) Morbid obesity Code(s): E66.01 - MORBID (SEVERE) OBESITY DUE TO EXCESS CALORIES Qualifiers: Obesity type: due to excess calories Qualified Code(s): E66.01 - Morbid (severe) obesity due to excess calories (6) Old cerebrovascular accident (CVA) without late effect Code(s): Z86.73 - PRSNL HX OF TIA (TIA), AND CEREB INFRC W/O RESID DEFICITS (7) Hematemesis Code(s): K92.0 - HEMATEMESIS This patient is new to me today: No Emergency Visit: Yes ED Registration Date: 06/10/16 Care time: The patient presented to the Emergency Department on the above date and was hospitalized for further evaluation of their emergent condition. Critical Care patient: No - Discharge Referral Referred to [facility] Med P.[facility] No
== END 2016-06-11 19:34 | disposition home or self-care (01) | DRG 198 ==
LOC: JER 12:11 → JERBED 16:58 → OBSVTOIN 17:47 → J4W 19:05
PROVIDERS: ADMIT Internal Medicine; ATTEND Internal Medicine
DX: R07.89 Other chest pain (principal); E78.00 Pure hypercholesterolemia, unspecified; F17.210 Nicotine dependence, cigarettes, uncomplicated; I48.2 Chronic atrial fibrillation; F19.10 Other psychoactive substance abuse, uncomplicated; I10 Essential (primary) hypertension; G40.802 Other epilepsy, not intractable, without status epilepticus; I42.8 Other cardiomyopathies; I25.10 Atherosclerotic heart disease of native coronary artery without angina pectoris; F14.20 Cocaine dependence, uncomplicated; E66.01 Morbid (severe) obesity due to excess calories; Z68.42 Body mass index [BMI] 45.0-49.9, adult; Z71.3 Dietary counseling and surveillance; K92.0 Hematemesis; Z95.810 Presence of automatic (implantable) cardiac defibrillator; Z91.14 Patient's other noncompliance with medication regimen; Z86.73 Personal history of transient ischemic attack (TIA), and cerebral infarction without residual deficits
CPT/HCPCS: 36415; 70450-TC; 71010-TC; 80048; 80053; 80307; 82550; 83735; 83880; 84100; 84484; 85025; 85027; 85610; 93005; 93010; 99284-25; G0378

== ENCOUNTER 2017-01-06 13:59 | Inpatient (IN) | payer OTHER ==
[2017-01-06 16:03] VITALS: BMI 66.6
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
[2017-01-06] MEDS ORDERED: MENTHOL/PHENOL 1 EACH UD MM PRN (19:34)
[2017-01-06] MEDS ORDERED: hydrOXYzine PAMOATE 50 MG CAPSULE (FP) PO PRN (19:34)
[2017-01-06] MEDS ORDERED: diphenhydrAMINE HCL 50 MG CAPSULE PO PRN (19:34)
[2017-01-06] MEDS ORDERED: MAG HYDROX/AL HYDROX/SIMETH 30 ML UNIT-DOSE CUP PO PRN (19:34)
[2017-01-06] MEDS ORDERED: guaiFENesin/D-METHORPHAN HB 10 ML UNIT-DOSE CUPS PO PRN (19:34)
[2017-01-06] MEDS ORDERED: LOPERAMIDE HCL 2 MG CAPSULE PO PRN (19:34)
[2017-01-06] MEDS ORDERED: P-EPHED 60MG/TRIPROLIDI 2.5MG TABLET PO PRN (19:34)
[2017-01-06] MEDS ORDERED: MAGNESIUM HYDROX 2400MG/30ML ORAL SUSPENSION 30 ML CUP PO PRN (19:34)
[2017-01-06] MEDS ORDERED: NICOTINE POLACRILEX 2 MG GUM BUC PRN (19:34)
[2017-01-06] MEDS ORDERED: NICOTINE 14 MG/24 HOURS TOPICAL PATCH TD PRN (19:34)
[2017-01-06] MEDS ORDERED: chlordiazePOXIDE HCL 25 MG CAPSULE PO PRN (19:34)
[2017-01-06] MEDS ORDERED: MAGNESIUM CITRATE 300 ML BOTTLE PO PRN (19:34)
[2017-01-06] MEDS ORDERED: COLLOIDAL OATMEAL 1 BAR EACH TP PRN (19:37)
[2017-01-06] MEDS: chlordiazePOXIDE HCL 25 MG CAPSULE PO SCH (22:30)
[2017-01-06] MEDS: RANITIDINE HCL 150 MG TABLET (FP) PO SCH (22:31)
[2017-01-06] MEDS: APIXABAN 5 MG TABLET PO SCH (22:31)
[2017-01-06] MEDS: levETIRAcetam 500 MG TABLET (FP) PO SCH (22:31)
[2017-01-06] MEDS: VALSARTAN 40 MG TABLET (FP) PO SCH (22:31)
[2017-01-06] MEDS: THIAMINE HCL 100 MG TABLET (FP) PO SCH (22:32)
[2017-01-06] MEDS: MINERAL OIL/PETROLAT/WATER TOPICAL CREAM 113 GM JAR TP SCH (22:41)
[2017-01-07 00:17] LABS: URINE APPEARANCE CLEAR; URINE BILIRUBIN NEGATIVE (NEGATIVE); URINE BLOOD NEGATIVE (NEGATIVE); URINE COLOR LTYELLOW; URINE GLUCOSE (UA) NEGATIVE (NEGATIVE); URINE KETONE NEGATIVE (NEGATIVE); URINE LEUK ESTERASE NEGATIVE (NEGATIVE); URINE NITRITE NEGATIVE (NEGATIVE); URINE PROTEIN NEGATIVE (NEGATIVE); URINE UROBILINOGEN NEGATIVE mg/dL (0.2-1.0)
[2017-01-07] MEDS: chlordiazePOXIDE HCL 25 MG CAPSULE PO SCH ×4 (05:51→22:19)
--- NOTE | 2017-01-07 09:29 | EKG ---
Test Reason : Blood Pressure : / mmHG Vent. Rate : 086 BPM Atrial Rate : 416 BPM P-R Int : 000 ms QRS Dur : 084 ms QT Int : 354 ms P-R-T Axes : 000 037 024 degrees QTc Int : 423 ms ATRIAL FIBRILLATION NONSPECIFIC T WAVE ABNORMALITY ABNORMAL ECG WHEN COMPARED WITH ECG OF 10-JUN-2016 13:13, NO SIGNIFICANT CHANGE WAS FOUND Confirmed by MD HELENE, AUSTIN (2012) on 01/07/2017 9:29:33 AM Referred By: Confirmed By:AUSTIN NARAYAN MD
[2017-01-07] MEDS: APIXABAN 5 MG TABLET PO SCH ×2 (10:42→22:20)
[2017-01-07] MEDS: levETIRAcetam 500 MG TABLET (FP) PO SCH ×2 (10:42→22:19)
[2017-01-07] MEDS: PRENATAL VITAMINS W/ FOLIC ACID TABLET (FP) PO SCH (10:42)
[2017-01-07] MEDS: RANITIDINE HCL 150 MG TABLET (FP) PO SCH ×2 (10:42→22:19)
[2017-01-07 11:06] LABS: ALBUMIN 2.9 g/dl (3.4-5.0); ANION GAP 8 (8-16); CALCIUM 8.8 mg/dL (8.5-10.1); CO2 27 mmol/L (21-32); GLUCOSE,RANDOM 89 mg/dL (74-106)
[2017-01-07 11:09] LABS: MCH 27.3 pg (25.7-33.7); MCHC 32.2 g/dl (32.0-35.9); MEAN CELL VOLUME 84.8 fl (80-96); PLATELET COUNT 186 K/MM3 (134-434); RDW 17.3 % (11.9-15.9); WHITE BLOOD COUNT 6.3 K/mm3 (4.0-10.0)
[2017-01-07 11:10] LABS: ALK PHOS 62 U/L (45-117); BILIRUBIN,TOTAL 0.5 mg/dL (0.2-1.0); CREATININE 0.8 mg/dL (0.7-1.3); SGOT/AST 12 U/L (15-37); SGPT/ALT 12 U/L (12-78)
--- NOTE | 2017-01-07 12:22 | PN ---
S CIWA - CIWA Score Nausea/Vomitin Muscle Tremors: 2 Anxiety: 2 Agitation: 2 Paroxysmal Sweats: 2 Orientation: 0-Oriented Tacttile Disturbances: 1-Very Mild Itch/Numbness Auditory Disturbances: 0-None Visual Disturbances: 0-None Headache: 2-Mild CIWA-Ar Total Score: 13 S Progress Note (SOAP) Subjective: chronic leg pain, interrupted sleep shakes and sweats Objective: 01/07/17 12:21 Vital Signs - 8 hr 01/07/17 01/07/17 06:50 10:00 Temperature 97.3 F L 98.1 F Pulse Rate 84 93 H Respiratory 18 18 Rate Blood Pressure 123/81 113/86 Laboratory Last Values WBC 6.3 K/mm3 (4.0-10.0) 01/07/17 07:50 RBC 3.97 M/mm3 (4.00-5.60) L 01/07/17 07:50 Hgb 10.9 GM/dL (11.7-16.9) L 01/07/17 07:50 Hct 33.7 % (35.4-49) L 01/07/17 07:50 MCV 84.8 fl (80-96) 01/07/17 07:50 MCH 27.3 pg (25.7-33.7) 01/07/17 07:50 MCHC 32.2 g/dl (32.0-35.9) 01/07/17 07:50 RDW 17.3 % (11.9-15.9) H 01/07/17 07:50 Plt Count 186 K/MM3 (134-434) 01/07/17 07:50 MPV 8.0 fl (7.5-11.1) 01/07/17 07:50 Sodium 142 mmol/L (136-145) 01/07/17 07:50 Potassium 4.1 mmol/L (3.5-5.1) 01/07/17 07:50 Chloride 107 mmol/L (98-107) 01/07/17 07:50 Carbon Dioxide 27 mmol/L (21-32) 01/07/17 07:50 Anion Gap 8 (8-16) 01/07/17 07:50 BUN 10 mg/dL (7-18) 01/07/17 07:50 Creatinine 0.8 mg/dL (0.7-1.3) D 01/07/17 07:50 Creat Clearance w eGFR > 60 (>60) 01/07/17 07:50 Random Glucose 89 mg/dL (74-106) D 01/07/17 07:50 Calcium 8.8 mg/dL (8.5-10.1) 01/07/17 07:50 Total Bilirubin 0.5 mg/dL (0.2-1.0) D 01/07/17 07:50 AST 12 U/L (15-37) L D 01/07/17 07:50 ALT 12 U/L (12-78) D 01/07/17 07:50 Alkaline Phosphatase 62 U/L (45-117) 01/07/17 07:50 Total Protein 7.0 g/dl (6.4-8.2) 01/07/17 07:50 Albumin 2.9 g/dl (3.4-5.0) L 01/07/17 07:50 Urine Color Ltyellow 01/06/17 20:21 Urine Appearance Clear 01/06/17 20:21 Urine pH 8.0 (5.0-8.0) D 01/06/17 20:21 Ur Specific [place] 1.015 (1.005-1.025) 01/06/17 20:21 Urine Protein Negative (NEGATIVE) 01/06/17 20:21 Urine Glucose (UA) Negative (NEGATIVE) 01/06/17 20:21 Urine Ketones Negative (NEGATIVE) 01/06/17 20:21 Urine Blood Negative (NEGATIVE) 01/06/17 20:21 Urine Nitrite Negative (NEGATIVE) 01/06/17 20:21 Urine Bilirubin Negative (NEGATIVE) 01/06/17 20:21 Urine Urobilinogen Negative mg/dL (0.2-1.0) 01/06/17 20:21 Ur Leukocyte Esterase Negative (NEGATIVE) 01/06/17 20:21 lab noted Assessment: 01/07/17 12:21 withdrawal sx Plan: continue detox
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
[2017-01-07] MEDS: THIAMINE HCL 100 MG TABLET (FP) PO SCH (22:20)
[2017-01-07] MEDS: MINERAL OIL/PETROLAT/WATER TOPICAL CREAM 113 GM JAR TP SCH (22:20)
[2017-01-07] MEDS: VALSARTAN 40 MG TABLET (FP) PO SCH (22:21)
[2017-01-08] MEDS: chlordiazePOXIDE HCL 25 MG CAPSULE PO SCH ×3 (05:28→17:55)
[2017-01-08] MEDS: APIXABAN 5 MG TABLET PO SCH ×2 (10:35→22:47)
[2017-01-08] MEDS: PRENATAL VITAMINS W/ FOLIC ACID TABLET (FP) PO SCH (10:36)
[2017-01-08] MEDS: levETIRAcetam 500 MG TABLET (FP) PO SCH ×2 (10:38→22:47)
[2017-01-08] MEDS: RANITIDINE HCL 150 MG TABLET (FP) PO SCH ×2 (10:38→22:48)
[2017-01-08] MEDS: ACETAMINOPHEN 325 MG TABLET (FP) PO PRN (17:56)
--- NOTE | 2017-01-08 19:45 | PN ---
[facility] CIWA - CIWA Score Nausea/Vomitin-No Nausea/No Vomiting Muscle Tremors: 4-Moderate,w/Arms Extend Anxiety: 4-Mod. Anxious/Guarded Agitation: 3 Paroxysmal Sweats: 3 Orientation: 0-Oriented Tacttile Disturbances: 0-None Auditory Disturbances: 0-None Visual Disturbances: 0-None Headache: 0-None Present CIWA-Ar Total Score: 14 S Progress Note (SOAP) Subjective: Anxiety,tremors,sweating,interrupted sleep,restless Objective: 01/08/17 19:44 Vital Signs - 8 hr 01/08/17 01/08/17 14:43 17:40 Temperature 98.2 F 97.1 F L Pulse Rate 96 H 74 Respiratory 18 16 Rate Blood Pressure 119/87 130/81 Laboratory Last Values WBC 6.3 K/mm3 (4.0-10.0) 01/07/17 07:50 RBC 3.97 M/mm3 (4.00-5.60) L 01/07/17 07:50 Hgb 10.9 GM/dL (11.7-16.9) L 01/07/17 07:50 Hct 33.7 % (35.4-49) L 01/07/17 07:50 MCV 84.8 fl (80-96) 01/07/17 07:50 MCH 27.3 pg (25.7-33.7) 01/07/17 07:50 MCHC 32.2 g/dl (32.0-35.9) 01/07/17 07:50 RDW 17.3 % (11.9-15.9) H 01/07/17 07:50 Plt Count 186 K/MM3 (134-434) 01/07/17 07:50 MPV 8.0 fl (7.5-11.1) 01/07/17 07:50 Sodium 142 mmol/L (136-145) 01/07/17 07:50 Potassium 4.1 mmol/L (3.5-5.1) 01/07/17 07:50 Chloride 107 mmol/L (98-107) 01/07/17 07:50 Carbon Dioxide 27 mmol/L (21-32) 01/07/17 07:50 Anion Gap 8 (8-16) 01/07/17 07:50 BUN 10 mg/dL (7-18) 01/07/17 07:50 Creatinine 0.8 mg/dL (0.7-1.3) D 01/07/17 07:50 Creat Clearance w eGFR > 60 (>60) 01/07/17 07:50 Random Glucose 89 mg/dL (74-106) D 01/07/17 07:50 Calcium 8.8 mg/dL (8.5-10.1) 01/07/17 07:50 Total Bilirubin 0.5 mg/dL (0.2-1.0) D 01/07/17 07:50 AST 12 U/L (15-37) L D 01/07/17 07:50 ALT 12 U/L (12-78) D 01/07/17 07:50 Alkaline Phosphatase 62 U/L (45-117) 01/07/17 07:50 Total Protein 7.0 g/dl (6.4-8.2) 01/07/17 07:50 Albumin 2.9 g/dl (3.4-5.0) L 01/07/17 07:50 Urine Color Ltyellow 01/06/17 20:21 Urine Appearance Clear 01/06/17 20:21 Urine pH 8.0 (5.0-8.0) D 01/06/17 20:21 Ur Specific [place] 1.015 (1.005-1.025) 01/06/17 20:21 Urine Protein Negative (NEGATIVE) 01/06/17 20:21 Urine Glucose (UA) Negative (NEGATIVE) 01/06/17 20:21 Urine Ketones Negative (NEGATIVE) 01/06/17 20:21 Urine Blood Negative (NEGATIVE) 01/06/17 20:21 Urine Nitrite Negative (NEGATIVE) 01/06/17 20:21 Urine Bilirubin Negative (NEGATIVE) 01/06/17 20:21 Urine Urobilinogen Negative mg/dL (0.2-1.0) 01/06/17 20:21 Ur Leukocyte Esterase Negative (NEGATIVE) 01/06/17 20:21 RPR Titer Reactive 1:1 (NONREACTIVE) H 01/07/17 07:50 T.pallidum Ab (MHA) Previously reactive (NONREACTIVE) 01/07/17 07:50 labs noted Assessment: 01/08/17 19:45 Withdrawal sx. Plan: Continue detox
[2017-01-08] MEDS: chlordiazePOXIDE 5 MG CAPSULE PO SCH (22:47)
[2017-01-08] MEDS: MINERAL OIL/PETROLAT/WATER TOPICAL CREAM 113 GM JAR TP SCH (22:47)
[2017-01-08] MEDS: VALSARTAN 40 MG TABLET (FP) PO SCH (22:47)
[2017-01-08] MEDS: THIAMINE HCL 100 MG TABLET (FP) PO SCH (22:48)
[2017-01-09] MEDS: chlordiazePOXIDE 5 MG CAPSULE PO SCH ×3 (04:51→17:48)
[2017-01-09] MEDS: PRENATAL VITAMINS W/ FOLIC ACID TABLET (FP) PO SCH (10:16)
[2017-01-09] MEDS: RANITIDINE HCL 150 MG TABLET (FP) PO SCH ×2 (10:16→22:14)
[2017-01-09] MEDS: levETIRAcetam 500 MG TABLET (FP) PO SCH ×2 (10:16→22:14)
[2017-01-09] MEDS: APIXABAN 5 MG TABLET PO SCH ×2 (10:16→22:14)
--- NOTE | 2017-01-09 11:12 | PN ---
[facility] Progress Note (SOAP) Subjective: sweats interrupted sleep agitation Objective: 01/09/17 11:12 Vital Signs Temperature 97.7 F 01/09/17 10:00 Pulse Rate 66 01/09/17 10:00 Respiratory Rate 18 01/09/17 10:00 Blood Pressure 146/88 01/09/17 10:00 O2 Sat by Pulse Oximetry (%) awake/alert ambulating no acute distress Assessment: 01/09/17 11:12 withdrawal sx Plan: continue detox d/c in am
[2017-01-09] MEDS: ACETAMINOPHEN 325 MG TABLET (FP) PO PRN (17:47)
[2017-01-09] MEDS: VALSARTAN 40 MG TABLET (FP) PO SCH (22:14)
[2017-01-09] MEDS: THIAMINE HCL 100 MG TABLET (FP) PO SCH (22:14)
[2017-01-09] MEDS: chlordiazePOXIDE HCL 10 MG CAPSULE PO SCH (22:16)
[2017-01-09] MEDS: MINERAL OIL/PETROLAT/WATER TOPICAL CREAM 113 GM JAR TP SCH (23:03)
[2017-01-10] MEDS: chlordiazePOXIDE HCL 10 MG CAPSULE PO SCH (05:28)
--- NOTE | 2017-01-10 08:56 | DS ---
[facility] Detox Discharge Summary Admission Date: 01/06/17 Discharge Date: 01/10/17 - History Present History: Alcohol Dependence Pertinent Past History: hematemesis, chest pain, AF, insomnia, depression, anxiety, nicotine depenendence - Physical Exam Results Vital Signs: Vital Signs Temperature 97.8 F 01/10/17 06:55 Pulse Rate 88 01/10/17 06:55 Respiratory Rate 20 01/10/17 06:55 Blood Pressure 148/78 01/10/17 06:55 O2 Sat by Pulse Oximetry (%) Laboratory Tests 01/06/17 01/07/17 01/07/17 20:21 07:50 07:50 WBC 6.3 RBC 3.97 L Hgb 10.9 L Hct 33.7 L MCV 84.8 MCH 27.3 MCHC 32.2 RDW 17.3 H Plt Count 186 MPV 8.0 Sodium 142 Potassium 4.1 Chloride 107 Carbon Dioxide 27 Anion Gap 8 BUN 10 Creatinine 0.8 D Creat Clearance w eGFR > 60 Random Glucose 89 D Calcium 8.8 Total Bilirubin 0.5 D AST 12 L D ALT 12 D Alkaline Phosphatase 62 Total Protein 7.0 Albumin 2.9 L Urine Color Ltyellow Urine Appearance Clear Urine pH 8.0 D Ur Specific [place] 1.015 Urine Protein Negative Urine Glucose (UA) Negative Urine Ketones Negative Urine Blood Negative Urine Nitrite Negative Urine Bilirubin Negative Urine Urobilinogen Negative Ur Leukocyte Esterase Negative RPR Titer T.pallidum Ab (MHA) 01/07/17 07:50 WBC RBC Hgb Hct MCV MCH MCHC RDW Plt Count MPV Sodium Potassium Chloride Carbon Dioxide Anion Gap BUN Creatinine Creat Clearance w eGFR Random Glucose Calcium Total Bilirubin AST ALT Alkaline Phosphatase Total Protein Albumin Urine Color Urine Appearance Urine pH Ur Specific [place] Urine Protein Urine Glucose (UA) Urine Ketones Urine Blood Urine Nitrite Urine Bilirubin Urine Urobilinogen Ur Leukocyte Esterase RPR Titer Reactive 1:1 H T.pallidum Ab (MHA) Previously reactive Pertinent Admission Physical Exam Findings: withdrawals - Treatment Hospital Course: Detox Protocol Followed, Detoxed Safely, Responded well, Discharged Condition Good, Rehab Referral Accepted - Medication Discharge Medications: Ambulatory Orders Apixaban [Eliquis -] 5 mg PO BID #60 tablet 06/11/16 Atorvastatin Ca [Lipitor] 10 mg PO HS #30 tablet 06/11/16 Carvedilol [Coreg -] 12.5 mg PO BID #60 tablet 06/11/16 Levetiracetam [Keppra -] 500 mg PO BID #60 tablet 06/11/16 Pantoprazole Sodium [Protonix -] 20 mg PO DAILY #30 tablet.ec 06/11/16 Thiamine HCl [Vitamin B1 -] 100 mg PO DAILY #30 tablet 06/11/16 Valsartan [Diovan] 40 mg PO DAILY 30 Days 06/11/16 - Diagnosis (1) Alcohol dependence with uncomplicated withdrawal Current Visit: Yes Status: Chronic (2) Atrial fibrillation Current Visit: Yes Status: Chronic Qualifiers: Atrial fibrillation type: chronic Qualified Code(s): I48.2 - Chronic atrial fibrillation (3) GERD (gastroesophageal reflux disease) Current Visit: Yes Status: Chronic Qualifiers: Esophagitis presence: without esophagitis Qualified Code(s): K21.9 - Gastro-esophageal reflux disease without esophagitis (4) HTN (hypertension) Current Visit: Yes Status: Chronic Qualifiers: Hypertension type: essential hypertension Qualified Code(s): I10 - Essential (primary) hypertension (5) Morbid obesity Current Visit: Yes Status: Chronic (6) Nicotine dependence Current Visit: Yes Status: Chronic Qualifiers: Nicotine product type: cigarettes Substance use status: uncomplicated Qualified Code(s): F17.210 - Nicotine dependence, cigarettes, uncomplicated (7) Seizure disorder Current Visit: Yes Status: Chronic (8) Sequela, post-stroke Current Visit: Yes Status: Chronic (9) Walker as ambulation aid Current Visit: Yes Status: Chronic (10) CHF (congestive heart failure) Current Visit: Yes Status: Resolved Qualifiers: Congestive heart failure type: unspecified congestive heart failure type Congestive heart failure chronicity: chronic Qualified Code(s): I50.9 - Heart failure, unspecified (11) Positive PPD, treated Current Visit: Yes Status: Resolved (12) s/p pacemaker Current Visit: Yes Status: Resolved (13) Cocaine dependence Current Visit: No Status: Chronic Qualifiers: Substance use status: uncomplicated Qualified Code(s): F14.20 - Cocaine dependence, uncomplicated (14) Old cerebrovascular accident (CVA) without late effect Current Visit: No Status: Chronic (15) syncope Current Visit: No Status: Inactive - AMA Did Patient Leave Against Medical Advice: No
[2017-01-10 10:32] VITALS: BP 129/82; PULSE 83; TEMP 97.9
== END 2017-01-10 10:37 | disposition home or self-care (01) | DRG 774 ==
LOC: YASAS 13:59 → Y6N 18:22
PROVIDERS: ADMIT Internal Medicine Addiction Medicine; ATTEND Internal Medicine Addiction Medicine
PROC: HZ2ZZZZ Detoxification Services for Substance Abuse Treatment (ICD-10-PCS; principal; 2017-01-06)
DX: F10.230 Alcohol dependence with withdrawal, uncomplicated (principal); F14.20 Cocaine dependence, uncomplicated; F17.210 Nicotine dependence, cigarettes, uncomplicated; F34.1 Dysthymic disorder; I10 Essential (primary) hypertension; I50.9 Heart failure, unspecified; I48.2 Chronic atrial fibrillation; K21.9 Gastro-esophageal reflux disease without esophagitis; E66.01 Morbid (severe) obesity due to excess calories; G40.909 Epilepsy, unspecified, not intractable, without status epilepticus; R76.11 Nonspecific reaction to tuberculin skin test without active tuberculosis; R00.0 Tachycardia, unspecified; L98.8 Other specified disorders of the skin and subcutaneous tissue; Z95.0 Presence of cardiac pacemaker; Z86.73 Personal history of transient ischemic attack (TIA), and cerebral infarction without residual deficits; Z68.44 Body mass index [BMI] 60.0-69.9, adult; Z86.79 Personal history of other diseases of the circulatory system; Z79.01 Long term (current) use of anticoagulants; R26.2 Difficulty in walking, not elsewhere classified; Z99.89 Dependence on other enabling machines and devices; Z88.8 Allergy status to other drugs, medicaments and biological substances
CPT/HCPCS: 36415; 80053; 81003; 85027; 86593; 86780; 93005; 93010

== ENCOUNTER 2018-12-31 21:55 | Inpatient (IN) | payer SELFPAY ==
--- NOTE | 2018-12-31 23:52 | PDOC ---
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 Called [facility] doctor who said she was concerned because he came in unable to make comprehensible words with a right facial droop and she was unaware of his history and baseline. He has not yet been admitted but they have a bed available if we send him back. Pt is able to partially communicate by grunting and nodding/shaking head. Endorses drinking. Denies drug use or smoking. Pt communicates that speech difficulty, L facial droop, and L-sided weakness is 2/2 two strokes he had in the past. Denies any new weakness, new numbness/tingling, worsening speech difficulty, worsening walking, fever, chills , fatigue, headache, dizziness, vision changes, shortness of breath, cough, chest pain, palpitations, leg swelling, abdominal pain, blood in stool, diarrhea , constipation, nausea, vomiting, dysuria, hematuria, confusion. Past History - Past Medical History Allergies/Adverse Reactions: Allergies Allergy/AdvReac Type Severity Reaction Status Date / Time ibuprofen [From Motrin] Allergy Severe Vomiting Verified 01/01/19 23:46 chlordiazepoxide AdvReac Intermediate Nausea & Verified 01/01/19 23:46 Vomiting Home Medications: Ambulatory Orders Apixaban [Eliquis -] 5 mg PO BID #60 tablet 06/11/16 Carvedilol [Coreg -] 12.5 mg PO BID #60 tablet 06/11/16 Pantoprazole Sodium [Protonix -] 20 mg PO DAILY #30 tablet.ec 06/11/16 Thiamine HCl [Vitamin B1 -] 100 mg PO DAILY #30 tablet 06/11/16 Valsartan [Diovan] 40 mg PO DAILY 30 Days tablet 06/11/16 levETIRAcetam [Keppra -] 500 mg PO BID #60 tablet 06/11/16 Atorvastatin Ca [Lipitor] 80 mg PO HS 30 Days #30 tablet 01/01/19 Anemia: No Asthma: No Cancer: No Cardiac Disorders: Yes (pacemaker 2001) CVA: Yes (IN 2001 WITH LEFT SIDE EFFECT. NO RESIDUAL WEAKNESS) COPD: No CHF: No Dementia: No Diabetes: No GI Disorders: Yes Disorders: No HTN: Yes Hypercholesterolemia: No Kidney Stones: No Liver Disease: No Seizures: Yes (etoh related seizures last 12/14) Thyroid Disease: No - Surgical History Abdominal Surgery: Yes (intestinal obstruction in 06/2002) Appendectomy: No Cardiac Surgery: Yes (pacemaker inplace from 2001) Cholecystectomy: No Lung Surgery: No Neurologic Surgery: No Orthopedic Surgery: No - Reproductive History Testicular Surgery: No - Suicide/Smoking/Psychosocial Hx Smoking Status: Yes Smoking History: Unknown if ever smoked Have you smoked in the past 12 months: No Number of Cigarettes Smoked Daily: 2 If you are a former smoker, when did you quit?: 2006 Cigars Per Day: 0 Information on smoking cessation initiated: No 'Breaking Loose' booklet given: 01/06/17 Hx Alcohol Use: No Drug/Substance Use Hx: No Substance Use Type: Alcohol Hx Substance Use Treatment: Yes (06/2016 [facility]) Review of Systems - Review of Systems Comments:: 01/01/19 06:50 Constitutional: Negative for chills, fever, fatigue. HENT: Negative for sore throat, rhinorrhea, congestion. Eyes: Negative for visual disturbance. Respiratory: Negative for shortness of breath, cough, and wheezing. Cardiovascular: Negative for chest pain, palpitations, and leg swelling. Gastrointestinal: Negative for abdominal pain, blood in stool, constipation, diarrhea, nausea, and vomiting. Genitourinary: Negative for dysuria, flank pain, and hematuria. Musculoskeletal: Negative for myalgias, back pain, and neck pain. Skin: Negative for rash. Neurological: Positive for L facial droop and L-sided weakness and decreased sensation (states chronic 2/2 strokes). Negative for light-headedness, dizziness , syncope, and headaches. Psychiatric/Behavioral: Negative for behavioral problems and confusion. *Physical Exam - Vital Signs Last Vital Signs Temp Pulse Resp BP Pulse Ox 97.5 F L 58 L 20 103/48 L 97 12/31/18 22:13 12/31/18 22:13 12/31/18 22:13 12/31/18 22:13 12/31/18 22:13 - Physical Exam Comments: 01/01/19 06:51 Gen: Alert, NAD, comfortable-appearing, malodorous, breath EtOH, obese HEENT: PERRL, EOMI, MMM, NCAT. No conjunctival pallor. Sclera are non-icteric. CV: Regular rate and rhythm. No murmurs, rubs, or gallops. PULM: No resp distress. CTAB, no wheezes, rales, or rhonchi. ABD: soft, NT/ND, no rebound tenderness or guarding, no CVA tenderness. BACK: No TTP of c/t/l-spine. No step-offs or deformities. MSK: No bony deformities. 2+ pulses in all extremities. NEURO: Grunts and nods/shakes head to communicate, words incomprehensible/ slurred. Alert. PERRL. CN 2-12 difficult to assess. 5/5 strength in R extremities, 4/5 in L extremities. Sensation to light touch intact in RUE/RLE, decreased in LUE/LLE. No pronator drift. No dysmetria. No dysdiadochokinesia. No abnormal nystagmus. EXTREMITIES: No cyanosis. No clubbing. No edema. No calf tenderness. PSYCH: Normal mood and thought pattern. SKIN: Warm and dry. Normal capillary refill. No rashes. No jaundice. Heart Score/ECG Review - ECG Impressions Comment:: 01/01/19 06:43 EKG 0021: afib, 66bpm, QTc 471ms, TWI in lead III, normal axis, no ST elevations or depressions. No significant changes compared to 01/06/17. 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 Called [facility] doctor who said she was concerned because he came in unable to make comprehensible words with a right facial droop and she was unaware of his history and baseline. He has not yet been admitted but they have a bed available if we send him back. Pt appears to be at baseline per medical records and pt denies any complaints or new symptoms. Exam is benign except for odour and baseline neurologic deficits per medical records. Hemodynamically stable, soft BP, afebrile. Hydrate with banana bag. Low concern for acute pathology, but due to intoxication and limited exam/hx, will do screening exams to r/o intracranial hemorrhage, pulmonary abnormality, cardiac abnormality, metabolic derangement, anemia, or extreme alcohol intoxication. Due to hx of seizures and use of Keppra , obtain Keppra level. -CTH, CXR -EKG -CBC, CMP, Coags, Cardiac profile, BNP, Mg, Phos, Lipase, UA/UC, Utox, Alcohol, Keppra -Banana bag -Dispo: likely d/c back to [facility] pending w/u 01/01/19 05:49 CTH: age indeterminate temporoparietal infarct EKG 0021: afib, 66bpm, QTc 471ms, TWI in lead III, normal axis, no ST elevations or depressions. No significant changes compared to 01/06/17. Labs reviewed. Of note, trop 0.05, K 3.1, Phos 1.8, Mg 1, BNP 559 (06/11/16 1057) , Alc 240.6. Replete K and Mg ordered. CXR: cardiomegaly, no acute pathology seen Signed out to admitting team, stroke tele. 01/01/19 06:54 UA and Utox negative. *DC/Admit/Observation/Transfer Diagnosis at time of Disposition: CVA (cerebral vascular accident) - Discharge Dispostion Disposition: PENITENTIARY FACILITY Condition at time of disposition: Stable Decision to Admit order: Yes - Referrals - Patient Instructions - Post Discharge Activity
[2019-01-01] MEDS ORDERED: FOLIC ACID INJECTION - 1 MG, THIAMINE HCL 100 MG, MULTIVIT INJECTION ADULT 10 ML in SOD... IVPB ONE (00:25)
[2019-01-01 02:08] LABS: BASO % 1.7 % (0-2.0); EOS % 1.6 % (0-4.5); HEMATOCRIT 39.8 % (35.4-49); HEMOGLOBIN 13.1 GM/dL (11.7-16.9); LYMPH % 39.7 % (8-40); MCH 31.1 pg (25.7-33.7); MCHC 32.9 g/dl (32.0-35.9); MEAN CELL VOLUME 94.5 fl (80-96); MEAN PLT VOLUME 7.7 fl (7.5-11.1); MONO % 5.7 % (3.8-10.2); NEUT % 51.3 % (42.8-82.8); PLATELET COUNT 241 K/MM3 (134-434); RBC 4.21 M/mm3 (4.00-5.60); RDW 16.1 % (11.9-15.9); WHITE BLOOD COUNT 6.4 K/mm3 (4.0-10.0)
[2019-01-01 02:25] LABS: INR 1.07 (0.83-1.09); PROTHROMBIN TIME (PATIENT) 12.6 SEC (9.7-13.0)
[2019-01-01 02:37] LABS: ALBUMIN 3.3 g/dl (3.4-5.0); BILIRUBIN,TOTAL 0.4 mg/dL (0.2-1); BLOOD UREA NITROGEN 12.4 mg/dL (7-18); CALCIUM 8.8 mg/dL (8.5-10.1); CREATININE 0.8 mg/dL (0.55-1.3); POTASSIUM 3.1 mmol/L (3.5-5.1); TOT PROT 7.5 g/dl (6.4-8.2)
[2019-01-01 02:38] LABS: N-TERMINAL BNP 559.2 pg/ml (5-125); PHOSPHOROUS 1.8 mg/dL (2.5-4.9)
[2019-01-01] MEDS ORDERED: MAGNESIUM SULF 50% (8.12 MEQ/2 ML-1 GM VIAL) IVPB ONE ×2 (03:10→06:24)
[2019-01-01] MEDS ORDERED: POTASSIUM CHLORIDE 20 MEQ PREMIX IVPB 100 ML IVPB ONE (03:11)
--- NOTE | 2019-01-01 04:48 | PDOC ---
Attending Attestation - Resident Resident Name: Francesca Zarco - ED Attending Attestation I have performed the following: I have examined & evaluated the patient, The case was reviewed & discussed with the resident, I agree w/resident's findings & plan - HPI HPI: 01/01/19 04:38 see resident hpi - Physicial Exam PE: 01/01/19 04:39 agree with resident exam - Medical Decision Making 01/01/19 04:39 63-year-old male from alcohol detox for a facial CT scan of the brain shows age indeterminate temporoparietal infarct Patient's blood alcohol level is elevated According to records he should currently be on anticoagulation EKG confirms atrial fibrillation with controlled rate Due to difficulty of exam secondary to alcohol intoxication and baseline aphasia as well as CT scan findings patient will be admitted to medical service for further evaluation prior to clearance for alcohol detox
--- NOTE | 2019-01-01 05:46 | PN ---
Teaching Attending Note Name of Resident: Daily Davison ATTENDING PHYSICIAN STATEMENT I saw and evaluated the patient. I reviewed the resident's note and discussed the case with the resident. I agree with the resident's findings and plan as documented. SUBJECTIVE: Patient is a 63 ruth old man with PMH of Afib with pacemaker on eliquis, CVA (x2 ) with residual speech deficit and LLE weakness, HTN, HLD, Epilepsy on Keppra ( last seizure 2014), and Polysubstance abuse with alcohol withdrawal seizures presents from [facility] with left-sided facial droop. ER staff called [facility] Doctor who said she was concerned because he came in unable to make comprehensible words with a right facial droop and she was unaware of his history and baseline. He has not yet been admitted but they have a bed available if we send him back. Patient appears to be at baseline per medical records and he denies any complaints or new symptoms. Exam is benign except for odour and baseline neurologic deficits per medical records. Evaluation limited due to alcohol intoxication. Pacemaker was interrogated 2 weeks ago and it was okay. OBJECTIVE: Somnolent but arousable Vital Signs Period Temp Pulse Resp BP Sys/Griffin Pulse Ox Last 24 Hr 97.5 F 58 20 103/48 97 HEENT: No Jaundice, eye redness or discharge, PERRLA, EOMI. Normocephalic, atraumatic. External ears are normal and hearing is grossly intact. No nasal discharge. Neck: Supple, nontender. No palpable adenopathy or thyromegaly. No JVD Chest: Good effort. Clear to auscultation and percussion. Heart: Irregularly irregular. No S3, rub or murmur Abdomen: Not distended, soft, nontender and no HSM. No rebound or guarding. Normal bowel sounds. Ext: Peripheral pulses intact. No leg edema. Skin: Warm and dry. No petechiae, rash or ecchymosis. Neuro: Somnolent but arousable. Aphasia; No asterixis or tremors. Oriented to person. CN 2-12 grossly intact. Sensation grossly intact in all four extremities and DTR are symmetric. Gait cannot be tested for safety reasons. Psych: Appropriate mood and affect. Good insight. Current Medications Generic Name Dose Route Start Last Admin Trade Name Freq PRN Reason Stop Dose Admin Enoxaparin Sodium 40 mg 01/01/19 10:00 Lovenox - SQ DAILY CRISTHIAN Folic Acid 1 mg/ Thiamine HCl 1,000 mls @ 125 mls/hr 01/01/19 00:25 100 mg/ Multivitamins/Minerals IVPB 01/01/19 08:24 10 ml/ Sodium Chloride ONCE ONE Home Medications Medication Instructions Recorded Apixaban [Eliquis -] 5 mg PO BID #60 tablet 06/11/16 Atorvastatin Ca [Lipitor] 10 mg PO HS #30 tablet 06/11/16 Carvedilol [Coreg -] 12.5 mg PO BID #60 tablet 06/11/16 Pantoprazole Sodium [Protonix -] 20 mg PO DAILY #30 tablet.ec 06/11/16 Thiamine HCl [Vitamin B1 -] 100 mg PO DAILY #30 tablet 06/11/16 Valsartan [Diovan] 40 mg PO DAILY 30 Days tablet 06/11/16 levETIRAcetam [Keppra -] 500 mg PO BID #60 tablet 06/11/16 Abnormal Lab Results 01/01/19 01/01/19 01/01/19 01:30 01:30 01:30 RDW 16.1 H Potassium 3.1 L Chloride 108 H Phosphorus Magnesium B-Natriuretic Peptide Albumin 3.3 L Lipase Alcohol, Quantitative 240.6 H 01/01/19 01:30 RDW Potassium Chloride Phosphorus 1.8 L Magnesium 1.0 L B-Natriuretic Peptide 559.2 H Albumin Lipase 52 L Alcohol, Quantitative ASSESSMENT AND PLAN: 1. Alcohol intoxication/Rule out CVA - CT scan of the brain shows age indeterminate left frontoparietal infarct. Patient's blood alcohol level is 240.6. He is not a candidate for tPA. He is on Eliquis and professes compliance. EKG show atrial fibrillation with rate of 66, prolonged QTc and no significant ST-T wave changes. Will admit to telemetry, do speech and swallow evaluation, get ECHO, carotid doppler, raise Lipitor dose to 80 mg, consult PT and Neurology. CXR shows cardiomegaly, unfolded aorta and no acute infiltrates. He has electrolyte derrangements associated with alcoholism. Will give IV KCL, MgSO4 and Neutraphos. Implement [facility] alcohol withdrawal protocol and do neurochecks. Implement seizure, fall and aspiration precautions. Treat with thiamine and folic acid and monitor electrolytes (Ca,Mg,K,P). Counseled patient about abstaining from alcohol. Will consult release specialist and refer to alcohol detox upon discharge. 2. Obesity Counseled on the risks associated with obesity. Will provide patient all the necessary assistance, counseling and positive reinforcement to facilitate weight loss. Consult e merchant. 3. Hypertension - Implement permissive hypertension and withhold all outpatient antihypertensive drugs for now. Will restart when clinically appropriate. Nonpharmacologic measures to control hypertension like weight loss, salt restriction and exercise discussed. Importance of adherence to treatment regimen and attainment of normotension emphasized. 4. DVT prophylaxis - On Eliquis for Afib. 5. Advance directives - Full code
[2019-01-01] MEDS ORDERED: NAPH,MB-DB/K PH,MBDB POWDER PACKET PO ONE (06:24)
[2019-01-01 06:31] LABS: PH,URINE 5.5 (5.0-8.0); URINE APPEARANCE CLEAR; URINE BILIRUBIN NEGATIVE (NEGATIVE); URINE COLOR YELLOW; URINE GLUCOSE (UA) TRACE (NEGATIVE); URINE KETONE NEGATIVE (NEGATIVE); URINE LEUK ESTERASE NEGATIVE (NEGATIVE); URINE NITRITE NEGATIVE (NEGATIVE); URINE PROTEIN NEGATIVE (NEGATIVE)
--- NOTE | 2019-01-01 06:35 | HP ---
CHIEF COMPLAINT: PCP: HISTORY OF PRESENT ILLNESS: The patient is a 63 year old male with PMH significant for AFib (PM placed in 2002), CVA, Epilepsy, HTN,and HLD. He presented to the ER in a state of inebriation after being referred from [facility] with concerns of left sided facial droop. He does not have any complaints of neurological deficits, slurred speech, or motor weakness. He does complain of sternal chest pain that began suddenly yesterday evening, but resolved soon after. He admits to have been drinking in the evening, but states that he did not pass out. He has no associated complaints of fever, chills, dizziness, light headedness, SOB, palpitations, nausea, vomiting, diarrhea, constipation, dysuria, urgency, or hematuria. He suffered from a stroke in 2016 and again in 2018. He developed aphasia and difficulty walking (ambulates using a walker) after the previous incident. His pacemaker was placed in 2002 and was last interrogated 2 weeks ago, with no issues reported. ER course was notable for: (1) K 3.1, repleted (2) Thiamine Folic Acid given (3) CT prelim report: Left fronto-parietal infarct (frontal is old, parietal involvement believed to be new), right cerebellar infarct. Recent Travel: none PAST MEDICAL HISTORY: On Eliquis 5mg, Carvedilol 2.5, Valsartan 40mg, Lipitor 10, Keppra 500mg PAST SURGICAL HISTORY: Pacemaker placement Social History: Smoking: none Alcohol: few drinks per week Drugs: none Family History: Allergies ibuprofen [From Motrin] Allergy (Severe, Verified 12/31/18 22:12) Vomiting chlordiazepoxide Adverse Reaction (Intermediate, Verified 12/31/18 22:12) Nausea & Vomiting Pt vomits HOME MEDICATIONS: Home Medications Medication Instructions Recorded Apixaban [Eliquis -] 5 mg PO BID #60 tablet 06/11/16 Atorvastatin Ca [Lipitor] 10 mg PO HS #30 tablet 06/11/16 Carvedilol [Coreg -] 12.5 mg PO BID #60 tablet 06/11/16 Pantoprazole Sodium [Protonix -] 20 mg PO DAILY #30 tablet.ec 06/11/16 Thiamine HCl [Vitamin B1 -] 100 mg PO DAILY #30 tablet 06/11/16 Valsartan [Diovan] 40 mg PO DAILY 30 Days tablet 06/11/16 levETIRAcetam [Keppra -] 500 mg PO BID #60 tablet 06/11/16 REVIEW OF SYSTEMS CONSTITUTIONAL: Absent: fever, chills, diaphoresis, generalized weakness, malaise, loss of appetite, weight change HEENT: Absent: rhinorrhea, nasal congestion, throat pain, throat swelling, difficulty swallowing, mouth swelling, ear pain, eye pain, visual changes CARDIOVASCULAR: chest pain Absent: syncope, palpitations, irregular heart rate, lightheadedness, peripheral edema RESPIRATORY: Absent: cough, shortness of breath, dyspnea with exertion, orthopnea, wheezing, stridor, hemoptysis GASTROINTESTINAL: Absent: abdominal pain, abdominal distension, nausea, vomiting, diarrhea, constipation, melena, hematochezia GENITOURINARY: Absent: dysuria, frequency, urgency, hesitancy, hematuria, flank pain, genital pain MUSCULOSKELETAL: Absent: myalgia, arthralgia, joint swelling, back pain, neck pain SKIN: Absent: rash, itching, pallor HEMATOLOGIC/IMMUNOLOGIC: Absent: easy bleeding, easy bruising, lymphadenopathy, frequent infections ENDOCRINE: Absent: unexplained weight gain, unexplained weight loss, heat intolerance, cold intolerance NEUROLOGIC: Absent: headache, focal weakness or paresthesias, dizziness, unsteady gait, seizure, mental status changes, bladder or bowel incontinence PSYCHIATRIC: Absent: anxiety, depression, suicidal or homicidal ideation, hallucinations. PHYSICAL EXAMINATION Vital Signs - 24 hr 12/31/18 22:13 Temperature 97.5 F L Pulse Rate 58 L Respiratory 20 Rate Blood Pressure 103/48 L O2 Sat by Pulse 97 Oximetry (%) GENERAL: AOx3, suffers from aphasia HEAD: Normal with no signs of trauma. EYES: Pupils equal, round and reactive to light, extraocular movements intact, sclera anicteric, conjunctiva clear. No lid lag. EARS, NOSE, THROAT: Ears normal, nares patent, oropharynx clear without exudates. Moist mucous membranes. NECK: Normal range of motion, supple without lymphadenopathy, JVD, or masses. LUNGS: decreased breath sounds B/L HEART: Regular rate and rhythm, normal S1 and S2 without murmur, rub or gallop. ABDOMEN: Soft, nontender, not distended, normoactive bowel sounds, no guarding, no rebound, no masses. No hepatomegaly or splenomegaly. MUSCULOSKELETAL: Normal range of motion at all joints. No bony deformities or tenderness. No CVA tenderness. UPPER EXTREMITIES: 2+ pulses, warm, well-perfused. No cyanosis. No clubbing. No peripheral edema. LOWER EXTREMITIES: 2+ pulses, warm, well-perfused. No calf tenderness. No peripheral edema. NEUROLOGICAL: Cranial nerves II-XII intact. Normal speech. upper and lower strength 5/5, sensations intact PSYCHIATRIC: Cooperative. Good eye contact. Appropriate mood and affect. SKIN: Warm, dry, normal turgor, no rashes or lesions noted, normal capillary refill. Laboratory Results - last 24 hr 01/01/19 01/01/19 01/01/19 01:30 01:30 01:30 WBC RBC Hgb Hct MCV MCH MCHC RDW Plt Count MPV Absolute Neuts (auto) Neutrophils % Lymphocytes % Monocytes % Eosinophils % Basophils % Nucleated RBC % PT with INR INR PTT (Actin FS) 30.9 Sodium Potassium Chloride Carbon Dioxide Anion Gap BUN Creatinine Est GFR (CKD-EPI)AfAm Est GFR (CKD-EPI)NonAf Random Glucose Calcium Phosphorus Magnesium Total Bilirubin AST ALT Alkaline Phosphatase Creatine Kinase 135 Troponin I 0.05 B-Natriuretic Peptide Total Protein Albumin Lipase Alcohol, Quantitative 240.6 H 01/01/19 01/01/19 01/01/19 01:30 01:30 01:30 WBC 6.4 RBC 4.21 Hgb 13.1 Hct 39.8 D MCV 94.5 MCH 31.1 D MCHC 32.9 RDW 16.1 H Plt Count 241 D MPV 7.7 Absolute Neuts (auto) 3.3 Neutrophils % 51.3 Lymphocytes % 39.7 D Monocytes % 5.7 Eosinophils % 1.6 Basophils % 1.7 Nucleated RBC % 0 PT with INR INR PTT (Actin FS) Sodium 145 Potassium 3.1 L Chloride 108 H Carbon Dioxide 25 Anion Gap 12 BUN 12.4 Creatinine 0.8 Est GFR (CKD-EPI)AfAm 110.19 Est GFR (CKD-EPI)NonAf 95.07 Random Glucose 80 Calcium 8.8 Phosphorus 1.8 L Magnesium 1.0 L Total Bilirubin 0.4 AST 20 ALT 15 Alkaline Phosphatase 79 Creatine Kinase Troponin I B-Natriuretic Peptide 559.2 H Total Protein 7.5 Albumin 3.3 L Lipase 52 L Alcohol, Quantitative 01/01/19 01:30 WBC RBC Hgb Hct MCV MCH MCHC RDW Plt Count MPV Absolute Neuts (auto) Neutrophils % Lymphocytes % Monocytes % Eosinophils % Basophils % Nucleated RBC % PT with INR 12.60 INR 1.07 PTT (Actin FS) Sodium Potassium Chloride Carbon Dioxide Anion Gap BUN Creatinine Est GFR (CKD-EPI)AfAm Est GFR (CKD-EPI)NonAf Random Glucose Calcium Phosphorus Magnesium Total Bilirubin AST ALT Alkaline Phosphatase Creatine Kinase Troponin I B-Natriuretic Peptide Total Protein Albumin Lipase Alcohol, Quantitative ASSESSMENT/PLAN: #CVA - CT head: prelim report showed Left fronto-parietal infarct (frontal is old, parietal involvement believed to be new), right cerebellar infarct - NIH 0 - Not a candidate for tPA - ASA given in ER, continue 81mg daily - Lipitor increased to 80mg from 10mg - Echo and Carotid Doppler ordered - Neuro checks Q2H - Speech and swallow #Alcohol abuse - CIWA 0 - Alcohol level 240.6 - monitor for signs o withdrawal - fall risk precautions #Hypokalemia - K 3.1 - KCl 20meq administered, monitor #Hypomagnesia - Mg 1.4 - MgSO4 ordered, continue to monitor #Hypophosphatemia - Phosphate 1.8 - PhosNak 2 packs ordered, continue to monitor #Hx of Afib - continue Eliquis 5mg, carvedilol 12.5, #Hx of seizures - Continue Keppra 50mg BID #DVT PE - On Eliquis, no Lovenox/Heparin Visit type - Emergency Visit Emergency Visit: Yes ED Registration Date: 01/01/19 Care time: The patient presented to the Emergency Department on the above date and was hospitalized for further evaluation of their emergent condition. - New Patient This patient is new to me today: Yes Date on this admission: 01/01/19 - Critical Care Critical Care patient: No ATTENDING PHYSICIAN STATEMENT I saw and evaluated the patient. I reviewed the resident's note and discussed the case with the resident. I agree with the resident's findings and plan as documented. SUBJECTIVE: OBJECTIVE: ASSESSMENT AND PLAN:
[2019-01-01 06:45] LABS: COCAINE, UR NEGATIVE ng/ml (CUTOFF=300); METHADONE, UR NEGATIVE ng/ml (CUTOFF=300); OPIATES, URI NEGATIVE ng/ml (CUTOFF=300); PHENCYCLIDINE,URINE NEGATIVE ng/ml (CUTOFF=25); URINE AMPHETAMINES NEGATIVE ng/ml (CUTOFF=500); URINE BARBITURATES NEGATIVE ng/ml (CUTOFF=200); URINE BENZODIAZEPINES NEGATIVE ng/ml (CUTOFF=200)
[2019-01-01 08:16] LABS: BASO % 1.4 % (0-2.0); EOS % 3.4 % (0-4.5); HEMATOCRIT 41.3 % (35.4-49); HEMOGLOBIN 13.9 GM/dL (11.7-16.9); LYMPH % 37.9 % (8-40); MCH 31.4 pg (25.7-33.7); MCHC 33.6 g/dl (32.0-35.9); MEAN CELL VOLUME 93.4 fl (80-96); MEAN PLT VOLUME 7.7 fl (7.5-11.1); MONO % 8.2 % (3.8-10.2); NEUT % 49.1 % (42.8-82.8); PLATELET COUNT 238 K/MM3 (134-434); RBC 4.42 M/mm3 (4.00-5.60); RDW 15.7 % (11.9-15.9); WHITE BLOOD COUNT 4.7 K/mm3 (4.0-10.0)
[2019-01-01 08:50] LABS: BLOOD UREA NITROGEN 11.4 mg/dL (7-18); PHOSPHOROUS 2.4 mg/dL (2.5-4.9); POTASSIUM 3.2 mmol/L (3.5-5.1)
[2019-01-01] MEDS ORDERED: ENOXAPARIN NA (PORCINE) 40 MG/0.4 ML DISP.SYRIN SQ SCH (10:00)
[2019-01-01] MEDS ORDERED: THIAMINE HCL 100 MG TABLET (FP) PO SCH (10:00)
[2019-01-01] MEDS ORDERED: FOLIC ACID 1 MG TABLET (FP) PO SCH (10:00)
[2019-01-01] MEDS ORDERED: CARVEDILOL 12.5 MG TABLET (FP) PO SCH (10:00)
[2019-01-01] MEDS ORDERED: PANTOPRAZOLE 20 MG TABLET (FP) PO SCH (10:00)
[2019-01-01] MEDS ORDERED: levETIRAcetam 500 MG TABLET (FP) PO SCH (10:00)
[2019-01-01] MEDS ORDERED: APIXABAN 5 MG TABLET PO SCH (10:00)
[2019-01-01] MEDS ORDERED: VALSARTAN 40 MG TABLET (FP) PO SCH (10:00)
--- NOTE | 2019-01-01 10:21 | CON.NEURO ---
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 Cardio/Vascular: Yes: CAD (unclear), HTN Psych: Yes: Other (polysubstance abuse (ETOH and Cocaine)) - Alcohol/Substance Use Hx Alcohol Use: No History of Substance Use: reports: Cocaine (last one 8 months ago as per pt), Marijuana - Smoking History Smoking history: Unknown if ever smoked Have you smoked in the past 12 months: No Aproximately how many cigarettes per day: 2 If you are a former smoker, when did you quit?: 2006 - Social History Usual Living Arrangement: Other (brother and sister) ADL: Family Assistance History of Recent Travel: No Home Medications - Allergies Allergies/Adverse Reactions: Allergies Allergy/AdvReac Type Severity Reaction Status Date / Time ibuprofen [From Motrin] Allergy Severe Vomiting Verified 12/31/18 22:12 chlordiazepoxide AdvReac Intermediate Nausea & Verified 12/31/18 22:12 Vomiting - Home Medications Home Medications: Ambulatory Orders Apixaban [Eliquis -] 5 mg PO BID #60 tablet 06/11/16 Atorvastatin Ca [Lipitor] 10 mg PO HS #30 tablet 06/11/16 Carvedilol [Coreg -] 12.5 mg PO BID #60 tablet 06/11/16 Pantoprazole Sodium [Protonix -] 20 mg PO DAILY #30 tablet.ec 06/11/16 Thiamine HCl [Vitamin B1 -] 100 mg PO DAILY #30 tablet 06/11/16 Valsartan [Diovan] 40 mg PO DAILY 30 Days tablet 06/11/16 levETIRAcetam [Keppra -] 500 mg PO BID #60 tablet 06/11/16 Family Disease History - Family Disease History Family Disease History: Heart Disease: Father (alzheimer, 2013, Stroke), Sister (alzheimer, , Kidney Ca), CA: Mother (CA OF BEAST,RENAL FAILURE, ), Other: Father, Mother, Sister Physical Exam-Neuro Vital Signs: Vital Signs Temperature 97.9 F 01/01/19 08:04 Pulse Rate 87 01/01/19 08:04 Respiratory Rate 18 01/01/19 08:04 Blood Pressure 142/93 01/01/19 08:04 O2 Sat by Pulse Oximetry (%) 97 12/31/18 22:13 Labs: CBC, BMP 01/01/19 08:03 01/01/19 08:03 INR, PTT INR 1.07 (0.83-1.09) 01/01/19 01:30 Assessment/Plan cc Facial droopiness and alcohol intoxication HPI 63 year old male [place] resident, Atrial fibrillation, storke, epilepsy, htn, hld. Patient came to hospital for ? slurring of speech and etoh intoxication. Patient has ct head , which was unchanged since 2017. Patient feels he is back to [facility]. He was sent to hospital for facial droopiness. Patient denies any new focal enurological symptoms. He is on keppra, lipitor, eliquis. PAST MEDICAL HISTORY: On Eliquis 5mg, Carvedilol 2.5, Valsartan 40mg, Lipitor 10, Keppra 500mg PAST SURGICAL HISTORY: Pacemaker placement Social History: Smoking: none Alcohol: few drinks per week Drugs: none Family History: Allergies ibuprofen [From Motrin] Allergy (Severe, Verified 12/31/18 22:12) Vomiting chlordiazepoxide Adverse Reaction (Intermediate, Verified 12/31/18 22:12) Nausea & Vomiting Pt vomits HOME MEDICATIONS: Home Medications Medication Instructions Recorded Apixaban [Eliquis -] 5 mg PO BID #60 tablet 06/11/16 Atorvastatin Ca [Lipitor] 10 mg PO HS #30 tablet 06/11/16 Carvedilol [Coreg -] 12.5 mg PO BID #60 tablet 06/11/16 Pantoprazole Sodium [Protonix -] 20 mg PO DAILY #30 tablet.ec 06/11/16 Thiamine HCl [Vitamin B1 -] 100 mg PO DAILY #30 tablet 06/11/16 Valsartan [Diovan] 40 mg PO DAILY 30 Days tablet 06/11/16 levETIRAcetam [Keppra -] 500 mg PO BID #60 tablet 06/11/16 FH,ROS,SH reviewed in chart NEUROLOGICAL EXAMINATION Alert speech is aphasic and dysarthric, patient has been able to tell today is january 01, and he is at [facility] comprehension is [facility] eomi, puils reactive no pronator drift , left lower extremity is weak ct head unchanged since 2017 Assessment/Plan 63 year old male history of storke, atrial fibrillatioin came with ? facial droopiness and had alcohol intoxication. It is not clear if he has new stroke, patient is already on eliquis and statin. ct head unchanged Plan: continue current level of care and obtained carotid ultrasound - dvt prophylaxis, speech and PT - Continue current level of care - once carotid ultraound is noraml, he can be discharged home Thanking you so much Keshawn Collazo MD
--- NOTE | 2019-01-01 12:11 | CONSULT ---
Admitting History and Physical - Primary Care Physician PCP: Ellie Peters - Admission History of Present Illness: Per EMR- The patient is a 63 year old male with PMH significant for AFib (PM placed in 2002), CVA (2015,2017) , Epilepsy, HTN,and HLD. He presented to the ER in a state of inebriation after being referred from [facility] with concerns of left sided facial droop. CT head unchanged. 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 Cardiovascular: Yes: CAD (unclear), HTN Psych: Yes: Other (polysubstance abuse (ETOH and Cocaine)) - Smoking History Smoking history: Former smoker Have you smoked in the past 12 months: No Aproximately how many cigarettes per day: 2 If you are a former smoker, when did you quit?: 2005 - Alcohol/Substance Use Hx Alcohol Use: No History of Substance Use: reports: Cocaine (last one 8 months ago as per pt), Marijuana - Social History ADL: Family Assistance History of Recent Travel: No History - Admission Reason For Visit: CEREBROVASCULAR ACCIDENT (CVA) - Diagnostics X-ray: Report Reviewed CT Scan: Report Reviewed MRI: Pending - General Mental Status: Alert and Oriented, Awake and Alert, Able to Follow Commands Attention: Intact Ability to Follow Directions: Good Head/Neck Control: WFL - Hearing Hearing: Functional Speech Evaluation - Communication Primary Language: LUXEMBOURGER Oral Expression Ability: Yes: Moderate Impairment, Severe Impairment - Speech Production Able to Make Needs Known: Yes: Moderately Impaired, Severely Impaired Intelligibility: Yes: Moderately Impaired, Severely Impaired - Speech Characteristics Voice Loudness: Normal Voice Pitch: Yes: Normal Voice Phonatory-based Quality: Yes: Dysphonia Speech Pattern: Impaired Speech Clarity: < 25% Nasal Resonance: Hypernasal (Nasal emission and hypernasality. Substitutes plosives with nasal sounds eg m for b, n for t. Etiology? h/o smoking/drug abuse- cocaine?. h/o cva's) Articulation: Yes: Precise Rate of Speech: Too Fast - Language/Auditory Comprehension Follows: Yes: 2 Stage Simple Commands Observation: Able to respond to yes/no queries: Yes, Yes/No Confusion: No, Comprehends Conversational Speech: Yes - Language/Verbal Expression Able to Communicate Wants and Needs: Yes: Moderately Impaired, Severely Impaired - Swallow Evaluation/Bedside Assessment Current Nutritional Intake: Other (had sandwich/water per nursing note.) Oral Secretions: Yes: WFL Dentition: Yes: Edentulous Facial Symmetry at Rest: Symmetrical Jaw Position: Open at Rest Lingual Movement: Symmetric Lingual Movement Strgth Against Opposition: Normal Lingual Movement Characteristics: Normal Laryngeal Elevation: WFL Laryngeal Movement: Able to Palpate Bolus Size: Large Chewing: Impaired (impulsive. Reduced mastication efficiency) Oral Prep Time: WFL A-P Transit: WFL Pocketing: None Timing of Swallow: WFL Coughing/Throat Clear: No Change in Voice: No Recommendations - Speech Evaluation, Impression/Plan Impression: Nasal emission and hypernasality. Substitutes plosives with nasal sounds eg m for b, n for t. Etiology? h/o smoking/drug abuse- cocaine?. h/o cva 's. Swallowing intact. Edentulous. - Dysphagia Impressions/Plan Dysphagia Impressions: Mild Impairment *Silent aspiration: cannot be R/O at bedside Recommendations: ENT Consult (assess velum. impaired velopharyngeal closure. h/ o cva's. Drug abuse. (Cocaine?)) - Recommendations Diet Consistency: Dysphagia Whole (chopped meat) Medication Administration: Whole with water Liquids: Thin Liquids
--- NOTE | 2019-01-01 12:43 | EKG ---
Test Reason : Blood Pressure : / mmHG Vent. Rate : 066 BPM Atrial Rate : 086 BPM P-R Int : 000 ms QRS Dur : 096 ms QT Int : 450 ms P-R-T Axes : 000 020 -01 degrees QTc Int : 471 ms ATRIAL FIBRILLATION NONSPECIFIC T WAVE ABNORMALITY PROLONGED QT ABNORMAL ECG WHEN COMPARED WITH ECG OF 06-JAN-2017 19:38, NO SIGNIFICANT CHANGE WAS FOUND Confirmed by Abhishek Merchant MD ([id number]) on 01/01/2019 12:42:51 PM Referred By: Confirmed By:Abhishek Merchant MD
--- NOTE | 2019-01-01 14:15 | ECHO ---
Version: 1 Name: TRACY BAILEY Exam: Adult Echocardiogram Study Date: 01/01/2019, 11:39 AM Age: 63 Years MMode/2D Measurements & Calculations IVSd: 0.93 cm LVIDs: 3.2 cm LVIDd: 5.0 cm LVPWd: 1.24 cm LVOT diam: 2.27 cm Ao root diam: 3.3 cm LA dimension: 3.0 cm Doppler Measurements & Calculations MV E max darci: 74.7 cm/sec Med E/e': 10.1 MV A max darci: 38.8 cm/sec Med Peak E' Darci: 7.4 cm/sec MV E/A: 1.93 Lat E/e': 5.9 Lat Peak E' Darci: 12.7 cm/sec MR max P.4 mmHg Ao max P.2 mmHg CAMI(I,D): 2.13 cm Ao mean P.1 mmHg LV V1 mean: 67.6 cm/sec Ao V2 max: 143.2 cm/sec LV V1 mean P.93 mmHg Left Ventricle The left ventricular size, thickness and function are normal. Right Ventricle The right ventricle is normal in size and function. Atria The left atrium is mildly dilated. Right atrial size is normal. Mitral Valve The mitral valve is normal in structure and function. There is trace to mild mitral regurgitation. Tricuspid Valve The tricuspid valve is normal. There is mild tricuspid regurgitation. Aortic Valve The aortic valve is normal in structure and function. Pulmonic Valve The pulmonic valve is normal in structure and function. Great Vessels The aortic root is normal size. Pericardium/Pleura There is no pericardial effusion. Summary Statements The left ventricular size, thickness and function are normal The right ventricle is normal in size and function. The left atrium is mildly dilated. Right atrial size is normal. The mitral valve is normal in structure and function. There is trace to mild mitral regurgitation. The tricuspid valve is normal. There is mild tricuspid regurgitation. The aortic valve is normal in structure and function. The pulmonic valve is normal in structure and function. The aortic root is normal size. There is no pericardial effusion. EF 65% MD Bhaskar Baeza 01/01/2019, 1:15 PM Ordering Physician: CHRISSY RALPH Referring Physician: CHRISSY RALPH Performed By: Bria Chatman
[2019-01-01 15:10] VITALS: TEMP 98.1
--- NOTE | 2019-01-01 15:48 | PN ---
Physical Exam: SUBJECTIVE: Patient seen and examined OBJECTIVE: Vital Signs Period Temp Pulse Resp BP Sys/Griffin Pulse Ox Last 24 Hr 97.5 F-98.1 F 58-87 18-20 103-142/48-93 96-97 GENERAL: The patient is awake, alert, and fully oriented, in no acute distress. HEAD: Normal with no signs of trauma. EYES: PERRL, extraocular movements intact, sclera anicteric, conjunctiva clear. No ptosis. ENT: Ears normal, nares patent, oropharynx clear without exudates, moist mucous membranes. NECK: Trachea midline, full range of motion, supple. LUNGS: Breath sounds equal, clear to auscultation bilaterally, no wheezes, no crackles, no accessory muscle use. HEART: Regular rate and rhythm, S1, S2 without murmur, rub or gallop. ABDOMEN: Soft, nontender, nondistended, normoactive bowel sounds, no guarding, no rebound, no hepatosplenomegaly, no masses. EXTREMITIES: 2+ pulses, warm, well-perfused, no edema. NEUROLOGICAL: Cranial nerves II through XII grossly intact. Normal speech, gait not observed. PSYCH: Normal mood, normal affect. SKIN: Warm, dry, normal turgor, no rashes or lesions noted Laboratory Results - last 24 hr 01/01/19 01/01/19 01/01/19 01:30 01:30 01:30 WBC RBC Hgb Hct MCV MCH MCHC RDW Plt Count MPV Absolute Neuts (auto) Neutrophils % Lymphocytes % Monocytes % Eosinophils % Basophils % Nucleated RBC % PT with INR INR PTT (Actin FS) 30.9 Sodium Potassium Chloride Carbon Dioxide Anion Gap BUN Creatinine Est GFR (CKD-EPI)AfAm Est GFR (CKD-EPI)NonAf Random Glucose Hemoglobin A1c % Calcium Phosphorus Magnesium Total Bilirubin AST ALT Alkaline Phosphatase Creatine Kinase 135 Troponin I 0.05 B-Natriuretic Peptide Total Protein Albumin Triglycerides Cholesterol Total LDL Cholesterol HDL Cholesterol Lipase TSH Urine Color Urine Appearance Urine pH Ur Specific [place] Urine Protein Urine Glucose (UA) Urine Ketones Urine Blood Urine Nitrite Urine Bilirubin Urine Urobilinogen Ur Leukocyte Esterase Opiates Screen Methadone Screen Barbiturate Screen Phencyclidine Screen Ur Amphetamines Screen MDMA (Ecstasy) Screen Benzodiazepines Screen Cocaine Screen U Marijuana (THC) Screen Alcohol, Quantitative 240.6 H 01/01/19 01/01/19 01/01/19 01:30 01:30 01:30 WBC 6.4 RBC 4.21 Hgb 13.1 Hct 39.8 D MCV 94.5 MCH 31.1 D MCHC 32.9 RDW 16.1 H Plt Count 241 D MPV 7.7 Absolute Neuts (auto) 3.3 Neutrophils % 51.3 Lymphocytes % 39.7 D Monocytes % 5.7 Eosinophils % 1.6 Basophils % 1.7 Nucleated RBC % 0 PT with INR INR PTT (Actin FS) Sodium 145 Potassium 3.1 L Chloride 108 H Carbon Dioxide 25 Anion Gap 12 BUN 12.4 Creatinine 0.8 Est GFR (CKD-EPI)AfAm 110.19 Est GFR (CKD-EPI)NonAf 95.07 Random Glucose 80 Hemoglobin A1c % Calcium 8.8 Phosphorus 1.8 L Magnesium 1.0 L Total Bilirubin 0.4 AST 20 ALT 15 Alkaline Phosphatase 79 Creatine Kinase Troponin I B-Natriuretic Peptide 559.2 H Total Protein 7.5 Albumin 3.3 L Triglycerides Cholesterol Total LDL Cholesterol HDL Cholesterol Lipase 52 L TSH Urine Color Urine Appearance Urine pH Ur Specific [place] Urine Protein Urine Glucose (UA) Urine Ketones Urine Blood Urine Nitrite Urine Bilirubin Urine Urobilinogen Ur Leukocyte Esterase Opiates Screen Methadone Screen Barbiturate Screen Phencyclidine Screen Ur Amphetamines Screen MDMA (Ecstasy) Screen Benzodiazepines Screen Cocaine Screen U Marijuana (THC) Screen Alcohol, Quantitative 01/01/19 01/01/19 01/01/19 01:30 06:11 06:11 WBC RBC Hgb Hct MCV MCH MCHC RDW Plt Count MPV Absolute Neuts (auto) Neutrophils % Lymphocytes % Monocytes % Eosinophils % Basophils % Nucleated RBC % PT with INR 12.60 INR 1.07 PTT (Actin FS) Sodium Potassium Chloride Carbon Dioxide Anion Gap BUN Creatinine Est GFR (CKD-EPI)AfAm Est GFR (CKD-EPI)NonAf Random Glucose Hemoglobin A1c % Calcium Phosphorus Magnesium Total Bilirubin AST ALT Alkaline Phosphatase Creatine Kinase Troponin I B-Natriuretic Peptide Total Protein Albumin Triglycerides Cholesterol Total LDL Cholesterol HDL Cholesterol Lipase TSH Urine Color Yellow Urine Appearance Clear Urine pH 5.5 D Ur Specific [place] 1.017 Urine Protein Negative Urine Glucose (UA) Trace Urine Ketones Negative Urine Blood Negative Urine Nitrite Negative Urine Bilirubin Negative Urine Urobilinogen 1.0 Ur Leukocyte Esterase Negative Opiates Screen Negative Methadone Screen Negative Barbiturate Screen Negative Phencyclidine Screen Negative Ur Amphetamines Screen Negative MDMA (Ecstasy) Screen Negative Benzodiazepines Screen Negative Cocaine Screen Negative U Marijuana (THC) Screen Negative Alcohol, Quantitative 01/01/19 01/01/19 01/01/19 08:03 08:03 08:03 WBC 4.7 RBC 4.42 Hgb 13.9 Hct 41.3 MCV 93.4 MCH 31.4 MCHC 33.6 RDW 15.7 Plt Count 238 MPV 7.7 Absolute Neuts (auto) 2.3 Neutrophils % 49.1 Lymphocytes % 37.9 Monocytes % 8.2 Eosinophils % 3.4 D Basophils % 1.4 Nucleated RBC % 0 PT with INR INR PTT (Actin FS) Sodium 144 Potassium 3.2 L Chloride 109 H Carbon Dioxide 26 Anion Gap 9 BUN 11.4 Creatinine 1.0 Est GFR (CKD-EPI)AfAm 92.42 Est GFR (CKD-EPI)NonAf 79.75 Random Glucose 106 Hemoglobin A1c % 5.2 Calcium 9.0 Phosphorus 2.4 L Magnesium 2.0 Total Bilirubin AST ALT Alkaline Phosphatase Creatine Kinase Troponin I B-Natriuretic Peptide Total Protein Albumin Triglycerides 111 Cholesterol 144 Total LDL Cholesterol 40 HDL Cholesterol 87 H Lipase TSH 2.03 Urine Color Urine Appearance Urine pH Ur Specific [place] Urine Protein Urine Glucose (UA) Urine Ketones Urine Blood Urine Nitrite Urine Bilirubin Urine Urobilinogen Ur Leukocyte Esterase Opiates Screen Methadone Screen Barbiturate Screen Phencyclidine Screen Ur Amphetamines Screen MDMA (Ecstasy) Screen Benzodiazepines Screen Cocaine Screen U Marijuana (THC) Screen Alcohol, Quantitative Active Medications Generic Name Dose Route Start Last Admin Trade Name Freq PRN Reason Stop Dose Admin Apixaban 5 mg 01/01/19 10:00 01/01/19 10:27 Eliquis - PO 5 mg BID CRISTHIAN Administration Atorvastatin Calcium 80 mg 01/01/19 22:00 Lipitor - PO HS CRISTHIAN Carvedilol 12.5 mg 01/01/19 10:00 01/01/19 10:26 Coreg - PO 12.5 mg BID CRISTHIAN Administration Folic Acid 1 mg 01/01/19 10:00 01/01/19 10:27 Folic Acid - PO 1 mg DAILY CRISTHIAN Administration Levetiracetam 500 mg 01/01/19 10:00 01/01/19 10:27 Keppra - PO 500 mg BID CRISTHIAN Administration Pantoprazole Sodium 20 mg 01/01/19 10:00 01/01/19 10:28 Protonix - PO 20 mg DAILY CRISTHIAN Administration Thiamine HCl 100 mg 01/01/19 10:00 01/01/19 10:28 Vitamin B1 - PO 100 mg DAILY CRISTHIAN Administration Valsartan 40 mg 01/01/19 10:00 01/01/19 10:27 Diovan - PO 40 mg DAILY CRISTHIAN Administration ASSESSMENT/PLAN: ATTENDING PHYSICIAN STATEMENT I saw and evaluated the patient. I reviewed the resident's note and discussed the case with the resident. I agree with the resident's findings and plan as documented. SUBJECTIVE: OBJECTIVE: ASSESSMENT AND PLAN:
--- NOTE | 2019-01-01 17:08 | PN ---
Teaching Attending Note Name of Resident: Blayne Weeks ATTENDING PHYSICIAN STATEMENT I saw and evaluated the patient. I reviewed the resident's note and discussed the case with the resident. I agree with the resident's findings and plan as documented. SUBJECTIVE:asymptomatic. denies CP, SOB, fever, chills, N/V/C/D OBJECTIVE: Last Vital Signs Temp Pulse Resp BP Pulse Ox 98.1 F 85 18 111/75 96 01/01/19 15:07 01/01/19 15:07 01/01/19 08:04 01/01/19 15:07 01/01/19 15:07 General NAD CV S1 S2 RRR no murmur/rub/gallop Lungs CTA B/L no wheezing/rales/rhonchi Neuro L facial droop, speech is dysarthric, no pronator drift ASSESSMENT AND PLAN: 63yo M with PMH afib on eliquis, HTN, continous ETOH dependence, epilepsy, s/p PPM, CVA with residual dysarthria and facial droop sent to [facility] from [facility] due to facial droop 1. R/o CVA- appears pt has residual facial droop which might have been more pronounced when pt was intoxicated. CT done not showing any new CVA. echo and carotid doppler pending. on eliquis and statin increased to 80mg. seen by neuro and speech and swallow 2. hypokalemia- kcl 3. hypophosphatemia- neutraphos 4. hypomagnesemia- Mg 5. continuous ETOH dependence- CIWA 0. not started on librium protocol. unclear if he is interested in inpatient rehab. agreeable to going back to [facility] when medically cleared 6. once final studies are read if negative can go to [facility] for further eval for ETOH dependence
--- NOTE | 2019-01-01 17:24 | DS ---
Physical Exam: SUBJECTIVE: Patient seen and examined OBJECTIVE: Vital Signs Period Temp Pulse Resp BP Sys/Griffin Pulse Ox Last 24 Hr 97.5 F-98.1 F 58-87 18-20 103-142/48-93 96-97 PHYSICAL EXAM GENERAL: The patient is awake, alert, and fully oriented, in no acute distress. HEAD: Normal with no signs of trauma. EYES: PERRL, extraocular movements intact, sclera anicteric, conjunctiva clear. ENT: Ears normal, nares patent, oropharynx clear without exudates, moist mucous membranes. NECK: Trachea midline, full range of motion, supple. LUNGS: Breath sounds equal, clear to auscultation bilaterally, no wheezes, no crackles, no accessory muscle use. HEART: Regular rate and rhythm, S1, S2 without murmur, rub or gallop. ABDOMEN: Soft, nontender, nondistended, normoactive bowel sounds, no guarding, no rebound, no hepatosplenomegaly, no masses. EXTREMITIES: 2+ pulses, warm, well-perfused, no edema. NEUROLOGICAL: Cranial nerves II through XII grossly intact. Normal speech, gait not observed. PSYCH: Normal mood, normal affect. SKIN: Warm, dry, normal turgor, no rashes or lesions noted. LABS Laboratory Results - last 24 hr 01/01/19 01/01/19 01/01/19 01:30 01:30 01:30 WBC RBC Hgb Hct MCV MCH MCHC RDW Plt Count MPV Absolute Neuts (auto) Neutrophils % Lymphocytes % Monocytes % Eosinophils % Basophils % Nucleated RBC % PT with INR INR PTT (Actin FS) 30.9 Sodium Potassium Chloride Carbon Dioxide Anion Gap BUN Creatinine Est GFR (CKD-EPI)AfAm Est GFR (CKD-EPI)NonAf Random Glucose Hemoglobin A1c % Calcium Phosphorus Magnesium Total Bilirubin AST ALT Alkaline Phosphatase Creatine Kinase 135 Troponin I 0.05 B-Natriuretic Peptide Total Protein Albumin Triglycerides Cholesterol Total LDL Cholesterol HDL Cholesterol Lipase TSH Urine Color Urine Appearance Urine pH Ur Specific [place] Urine Protein Urine Glucose (UA) Urine Ketones Urine Blood Urine Nitrite Urine Bilirubin Urine Urobilinogen Ur Leukocyte Esterase Opiates Screen Methadone Screen Barbiturate Screen Phencyclidine Screen Ur Amphetamines Screen MDMA (Ecstasy) Screen Benzodiazepines Screen Cocaine Screen U Marijuana (THC) Screen Alcohol, Quantitative 240.6 H 01/01/19 01/01/19 01/01/19 01:30 01:30 01:30 WBC 6.4 RBC 4.21 Hgb 13.1 Hct 39.8 D MCV 94.5 MCH 31.1 D MCHC 32.9 RDW 16.1 H Plt Count 241 D MPV 7.7 Absolute Neuts (auto) 3.3 Neutrophils % 51.3 Lymphocytes % 39.7 D Monocytes % 5.7 Eosinophils % 1.6 Basophils % 1.7 Nucleated RBC % 0 PT with INR INR PTT (Actin FS) Sodium 145 Potassium 3.1 L Chloride 108 H Carbon Dioxide 25 Anion Gap 12 BUN 12.4 Creatinine 0.8 Est GFR (CKD-EPI)AfAm 110.19 Est GFR (CKD-EPI)NonAf 95.07 Random Glucose 80 Hemoglobin A1c % Calcium 8.8 Phosphorus 1.8 L Magnesium 1.0 L Total Bilirubin 0.4 AST 20 ALT 15 Alkaline Phosphatase 79 Creatine Kinase Troponin I B-Natriuretic Peptide 559.2 H Total Protein 7.5 Albumin 3.3 L Triglycerides Cholesterol Total LDL Cholesterol HDL Cholesterol Lipase 52 L TSH Urine Color Urine Appearance Urine pH Ur Specific [place] Urine Protein Urine Glucose (UA) Urine Ketones Urine Blood Urine Nitrite Urine Bilirubin Urine Urobilinogen Ur Leukocyte Esterase Opiates Screen Methadone Screen Barbiturate Screen Phencyclidine Screen Ur Amphetamines Screen MDMA (Ecstasy) Screen Benzodiazepines Screen Cocaine Screen U Marijuana (THC) Screen Alcohol, Quantitative 01/01/19 01/01/19 01/01/19 01:30 06:11 06:11 WBC RBC Hgb Hct MCV MCH MCHC RDW Plt Count MPV Absolute Neuts (auto) Neutrophils % Lymphocytes % Monocytes % Eosinophils % Basophils % Nucleated RBC % PT with INR 12.60 INR 1.07 PTT (Actin FS) Sodium Potassium Chloride Carbon Dioxide Anion Gap BUN Creatinine Est GFR (CKD-EPI)AfAm Est GFR (CKD-EPI)NonAf Random Glucose Hemoglobin A1c % Calcium Phosphorus Magnesium Total Bilirubin AST ALT Alkaline Phosphatase Creatine Kinase Troponin I B-Natriuretic Peptide Total Protein Albumin Triglycerides Cholesterol Total LDL Cholesterol HDL Cholesterol Lipase TSH Urine Color Yellow Urine Appearance Clear Urine pH 5.5 D Ur Specific [place] 1.017 Urine Protein Negative Urine Glucose (UA) Trace Urine Ketones Negative Urine Blood Negative Urine Nitrite Negative Urine Bilirubin Negative Urine Urobilinogen 1.0 Ur Leukocyte Esterase Negative Opiates Screen Negative Methadone Screen Negative Barbiturate Screen Negative Phencyclidine Screen Negative Ur Amphetamines Screen Negative MDMA (Ecstasy) Screen Negative Benzodiazepines Screen Negative Cocaine Screen Negative U Marijuana (THC) Screen Negative Alcohol, Quantitative 01/01/19 01/01/19 01/01/19 08:03 08:03 08:03 WBC 4.7 RBC 4.42 Hgb 13.9 Hct 41.3 MCV 93.4 MCH 31.4 MCHC 33.6 RDW 15.7 Plt Count 238 MPV 7.7 Absolute Neuts (auto) 2.3 Neutrophils % 49.1 Lymphocytes % 37.9 Monocytes % 8.2 Eosinophils % 3.4 D Basophils % 1.4 Nucleated RBC % 0 PT with INR INR PTT (Actin FS) Sodium 144 Potassium 3.2 L Chloride 109 H Carbon Dioxide 26 Anion Gap 9 BUN 11.4 Creatinine 1.0 Est GFR (CKD-EPI)AfAm 92.42 Est GFR (CKD-EPI)NonAf 79.75 Random Glucose 106 Hemoglobin A1c % 5.2 Calcium 9.0 Phosphorus 2.4 L Magnesium 2.0 Total Bilirubin AST ALT Alkaline Phosphatase Creatine Kinase Troponin I B-Natriuretic Peptide Total Protein Albumin Triglycerides 111 Cholesterol 144 Total LDL Cholesterol 40 HDL Cholesterol 87 H Lipase TSH 2.03 Urine Color Urine Appearance Urine pH Ur Specific [place] Urine Protein Urine Glucose (UA) Urine Ketones Urine Blood Urine Nitrite Urine Bilirubin Urine Urobilinogen Ur Leukocyte Esterase Opiates Screen Methadone Screen Barbiturate Screen Phencyclidine Screen Ur Amphetamines Screen MDMA (Ecstasy) Screen Benzodiazepines Screen Cocaine Screen U Marijuana (THC) Screen Alcohol, Quantitative HOSPITAL COURSE: Date of Admission:01/01/19 Date of Discharge: 01/01/19 Discharge Summary Reason For Visit: CEREBROVASCULAR ACCIDENT (CVA) Current Active Problems CVA (cerebral vascular accident) (Acute) Condition: Stable - Instructions Diet, Activity, Other Instructions: Hospital course: You were see in in the hospital for sudden onset weakness, and facial drooping. You were evaluated by the neurologist and cleared for discharge back to [facility]. Continue your Detox program at [facility]. Follow up the recommendations of the physicians at [facility]. You are strongly encouraged to abstain from alcohol use. Consider joining a 12 step program as outpatient to assist in alcohol abstinence. Medication recommendations: Continue taking your home medications, as directed. We have increased your Atorvastatin dose to 80mg. Discus this medication change with your physician. Follow-up recommendations: Follow up with your primary care physician within one- two days of discharge. Follow up with Neurologist, Dr. Collazo within one week of discharge. Return to the nearest Emergency Department if you experience worsening symptoms , subjective fevers, chills, shortness of breath, chest pain, palpitations, abdominal pain, nausea, vomiting. Referrals: Keshawn Collazo MD [Staff Physician] - Thai Aponte MD [Staff Physician] - Disposition: INTERMEDIATE FACILITY - Home Medications Comprehensive Discharge Medication List: Ambulatory Orders Apixaban [Eliquis -] 5 mg PO BID #60 tablet 06/11/16 Carvedilol [Coreg -] 12.5 mg PO BID #60 tablet 06/11/16 Pantoprazole Sodium [Protonix -] 20 mg PO DAILY #30 tablet.ec 06/11/16 Thiamine HCl [Vitamin B1 -] 100 mg PO DAILY #30 tablet 06/11/16 Valsartan [Diovan] 40 mg PO DAILY 30 Days tablet 06/11/16 levETIRAcetam [Keppra -] 500 mg PO BID #60 tablet 06/11/16 Atorvastatin Ca [Lipitor] 80 mg PO HS 30 Days #30 tablet 01/01/19 ATTENDING PHYSICIAN STATEMENT I saw and evaluated the patient. I reviewed the resident's note and discussed the case with the resident. I agree with the resident's findings and plan as documented. SUBJECTIVE: OBJECTIVE: ASSESSMENT AND PLAN:
[2019-01-01] MEDS ORDERED: ATORVASTATIN CA 80 MG TABLET (FP) PO SCH (22:00)
[2019-01-01 23:57] VITALS: PULSE 60
[2019-01-01 23:58] VITALS: BP 147/92
[2019-01-02 01:36] VITALS: BMI 48.0
== END 2019-01-01 20:37 | disposition other institution (70) | DRG 774 ==
LOC: JER 21:55 → JERBED 01-01 05:48
PROVIDERS: ADMIT Internal Medicine; ATTEND Internal Medicine
PROC: HZ2ZZZZ Detoxification Services for Substance Abuse Treatment (ICD-10-PCS; principal; 2019-01-01)
DX: F10.229 Alcohol dependence with intoxication, unspecified (principal); R29.810 Facial weakness; E87.6 Hypokalemia; E83.39 Other disorders of phosphorus metabolism; E83.42 Hypomagnesemia; I10 Essential (primary) hypertension; E78.5 Hyperlipidemia, unspecified; E66.9 Obesity, unspecified; Z68.42 Body mass index [BMI] 45.0-49.9, adult; I48.91 Unspecified atrial fibrillation; I69.354 Hemiplegia and hemiparesis following cerebral infarction affecting left non-dominant side; F14.10 Cocaine abuse, uncomplicated; G40.909 Epilepsy, unspecified, not intractable, without status epilepticus
CPT/HCPCS: 36415; 70450-TC; 71045-TC-FY; 80048; 80053; 80061; 80177; 80307; 81003; 82550; 83036; 83690; 83721; 83735; 83880; 84100; 84443; 84484; 85025; 85610; 85730; 87086; 93005; 93010; 93306-TC; 93880-TC; 99284-25; J7030

== ENCOUNTER 2019-01-01 21:09 | Inpatient (IN) | payer OTHER ==
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
[2019-01-02] MEDS ORDERED: MAGNESIUM CITRATE 300 ML BOTTLE PO PRN (02:38)
[2019-01-02] MEDS ORDERED: MELATONIN 5 MG TABLETS PO PRN (02:38)
[2019-01-02] MEDS ORDERED: MAGNESIUM HYDROX 2400MG/30ML ORAL SUSPENSION 30 ML CUP PO PRN (02:38)
[2019-01-02] MEDS ORDERED: BISMUTH SUBSALICYLATE 524 MG/30 ML UD PO PRN (02:38)
[2019-01-02] MEDS ORDERED: hydrOXYzine PAMOATE 25 MG CAPSULE (FP) PO PRN (02:38)
[2019-01-02] MEDS ORDERED: METHOCARBAMOL 500 MG TABLET PO PRN (02:38)
[2019-01-02] MEDS ORDERED: ACETAMINOPHEN 325 MG TABLET (FP) PO PRN ×2 (02:38)
[2019-01-02] MEDS ORDERED: MENTHOL/PHENOL 1 EACH UD MM PRN (02:38)
[2019-01-02] MEDS ORDERED: MAG HYDROX/AL HYDROX/SIMETH 30 ML UNIT-DOSE CUP PO PRN (02:38)
[2019-01-02] MEDS ORDERED: ONDANSETRON *ODT* 4 MG TABLET SL PRN (02:44)
[2019-01-02] MEDS ORDERED: guaiFENesin 200 MG/10 ML 10 ML UNIT-DOSE CUPS PO PRN (02:44)
[2019-01-02] MEDS ORDERED: DICYCLOMINE HCL 10 MG CAPSULE PO PRN (02:44)
[2019-01-02] MEDS ORDERED: P-EPHED 60MG/TRIPROLIDI 2.5MG TABLET PO PRN (02:44)
[2019-01-02] MEDS: diazePAM 5 MG TABLET PO SCH ×3 (06:24→22:00)
--- NOTE | 2019-01-02 09:29 | PN ---
S CIWA - CIWA Score Nausea/Vomitin Muscle Tremors: 2 Anxiety: 2 Agitation: 2 Paroxysmal Sweats: 1-Minimal Palms Moist Orientation: 0-Oriented Tacttile Disturbances: 1-Very Mild Itch/Numbness Auditory Disturbances: 0-None Visual Disturbances: 0-None Headache: 2-Mild CIWA-Ar Total Score: 12 BHS Progress Note (SOAP) Subjective: alert,interrupted sleep,pain in the body Objective: 01/02/19 09:28 Vital Signs Temperature 97.3 F L 01/02/19 09:02 Pulse Rate 74 01/02/19 09:02 Respiratory Rate 18 01/02/19 09:02 Blood Pressure 137/74 01/02/19 09:02 O2 Sat by Pulse Oximetry (%) Assessment: 01/02/19 09:28 withdrawal symptom Plan: continue detox with valium regimen,close monitoring
[2019-01-02] MEDS: levETIRAcetam 500 MG TABLET (FP) PO SCH ×2 (10:40→22:00)
[2019-01-02] MEDS: PRENATAL VITAMINS W/ FOLIC ACID TABLET (FP) PO SCH (10:40)
[2019-01-02] MEDS: CARVEDILOL 12.5 MG TABLET (FP) PO SCH ×2 (10:40→22:00)
[2019-01-02] MEDS: VALSARTAN 40 MG TABLET (FP) PO SCH (10:40)
[2019-01-02] MEDS: PANTOPRAZOLE 20 MG TABLET (FP) PO SCH (10:40)
[2019-01-02] MEDS: APIXABAN 5 MG TABLET PO SCH ×2 (10:41→22:00)
[2019-01-02 12:31] LABS: ALBUMIN 2.9 g/dl (3.4-5.0); BILIRUBIN,TOTAL 0.4 mg/dL (0.2-1); BLOOD UREA NITROGEN 14.7 mg/dL (7-18); CALCIUM 8.9 mg/dL (8.5-10.1); CREATININE 0.9 mg/dL (0.55-1.3); POTASSIUM 3.6 mmol/L (3.5-5.1); TOT PROT 6.8 g/dl (6.4-8.2)
[2019-01-02] MEDS: diazePAM 5 MG TABLET PO PRN (17:03)
[2019-01-02] MEDS: ATORVASTATIN CA 80 MG TABLET (FP) PO SCH (22:00)
[2019-01-02] MEDS: THIAMINE HCL 100 MG TABLET (FP) PO SCH (22:00)
[2019-01-03] MEDS: diazePAM 5 MG TABLET PO SCH ×2 (06:52→18:50)
--- NOTE | 2019-01-03 09:32 | PN ---
S CIWA - CIWA Score Nausea/Vomitin-Mild Nausea/No Vomiting Muscle Tremors: 2 Anxiety: 2 Agitation: 2 Paroxysmal Sweats: No Perspiration Orientation: 0-Oriented Tacttile Disturbances: 1-Very Mild Itch/Numbness Auditory Disturbances: 0-None Visual Disturbances: 0-None Headache: 1-Very Mild CIWA-Ar Total Score: 9 BHS Progress Note (SOAP) Subjective: alert,irritable,interrupted sleep,right hemiparesis form old cva ambulate with walker Objective: 01/03/19 09:28 Vital Signs Temperature 97.9 F 01/03/19 09:13 Pulse Rate 88 01/03/19 09:13 Respiratory Rate 18 01/03/19 09:13 Blood Pressure 127/92 01/03/19 09:13 O2 Sat by Pulse Oximetry (%) 01/03/19 09:28 Laboratory Last Values Sodium 144 mmol/L (136-145) 01/02/19 08:30 Potassium 3.6 mmol/L (3.5-5.1) 01/02/19 08:30 Chloride 108 mmol/L (98-107) H 01/02/19 08:30 Carbon Dioxide 29 mmol/L (21-32) 01/02/19 08:30 Anion Gap 7 MMOL/L (8-16) L 01/02/19 08:30 BUN 14.7 mg/dL (7-18) 01/02/19 08:30 Creatinine 0.9 mg/dL (0.55-1.3) 01/02/19 08:30 Est GFR (CKD-EPI)AfAm 104.98 01/02/19 08:30 Est GFR (CKD-EPI)NonAf 90.58 01/02/19 08:30 Random Glucose 100 mg/dL (74-106) 01/02/19 08:30 Calcium 8.9 mg/dL (8.5-10.1) 01/02/19 08:30 Total Bilirubin 0.4 mg/dL (0.2-1) 01/02/19 08:30 AST 19 U/L (15-37) 01/02/19 08:30 ALT 14 U/L (13-61) 01/02/19 08:30 Alkaline Phosphatase 76 U/L (45-117) 01/02/19 08:30 Total Protein 6.8 g/dl (6.4-8.2) 01/02/19 08:30 Albumin 2.9 g/dl (3.4-5.0) L 01/02/19 08:30 Assessment: 01/03/19 09:28 withdrawal symptom Plan: continue detox,valium regimen,discharge in am
[2019-01-03] MEDS: VALSARTAN 40 MG TABLET (FP) PO SCH (10:27)
[2019-01-03] MEDS: levETIRAcetam 500 MG TABLET (FP) PO SCH ×2 (10:27→22:18)
[2019-01-03] MEDS: APIXABAN 5 MG TABLET PO SCH ×2 (10:28→22:17)
[2019-01-03] MEDS: CARVEDILOL 12.5 MG TABLET (FP) PO SCH ×2 (10:28→22:18)
[2019-01-03] MEDS: PANTOPRAZOLE 20 MG TABLET (FP) PO SCH (10:28)
[2019-01-03] MEDS: PRENATAL VITAMINS W/ FOLIC ACID TABLET (FP) PO SCH (10:28)
[2019-01-03 12:09] LABS: PH,URINE 5.5 (5.0-8.0); URINE APPEARANCE CLEAR; URINE BILIRUBIN NEGATIVE (NEGATIVE); URINE COLOR YELLOW; URINE GLUCOSE (UA) NEGATIVE (NEGATIVE); URINE KETONE TRACE (NEGATIVE); URINE LEUK ESTERASE NEGATIVE (NEGATIVE); URINE NITRITE NEGATIVE (NEGATIVE); URINE PROTEIN NEGATIVE (NEGATIVE)
[2019-01-03] MEDS: diazePAM 5 MG TABLET PO PRN (16:49)
[2019-01-03 18:25] LABS: RPR REACTIVE 1:1 (NONREACTIVE)
[2019-01-03 18:26] LABS: TREPONEMA ANTIBODY REACTIVE (NONREACTIVE)
[2019-01-03] MEDS: ATORVASTATIN CA 80 MG TABLET (FP) PO SCH (22:17)
[2019-01-03] MEDS: THIAMINE HCL 100 MG TABLET (FP) PO SCH (22:18)
[2019-01-04] MEDS ORDERED: diazePAM 5 MG TABLET PO ONE (06:00)
--- NOTE | 2019-01-04 09:09 | DS ---
[facility] Detox Discharge Summary Admission Date: 01/02/19 Discharge Date: 01/04/19 - History Present History: Alcohol Dependence, Cocaine Dependence - Physical Exam Results Vital Signs: Vital Signs Temperature 96.6 F L 01/04/19 06:37 Pulse Rate 72 01/04/19 06:37 Respiratory Rate 18 01/04/19 06:37 Blood Pressure 112/65 01/04/19 06:37 O2 Sat by Pulse Oximetry (%) Pertinent Admission Physical Exam Findings: pt arrived in withdrawals Laboratory Tests 01/02/19 01/03/19 01/03/19 08:30 09:00 09:20 Sodium 144 Potassium 3.6 Chloride 108 H Carbon Dioxide 29 Anion Gap 7 L BUN 14.7 Creatinine 0.9 Est GFR (CKD-EPI)AfAm 104.98 Est GFR (CKD-EPI)NonAf 90.58 Random Glucose 100 Calcium 8.9 Total Bilirubin 0.4 AST 19 ALT 14 Alkaline Phosphatase 76 Total Protein 6.8 Albumin 2.9 L Urine Color Yellow Urine Appearance Clear Urine pH 5.5 Ur Specific [place] 1.027 Urine Protein Negative Urine Glucose (UA) Negative Urine Ketones Trace H Urine Blood Negative Urine Nitrite Negative Urine Bilirubin Negative Urine Urobilinogen 1.0 Ur Leukocyte Esterase Negative RPR Titer Reactive 1:1 H T.pallidum Ab (MHA) Reactive today pt is aaox3 ambulating no acute distress no s/s of withdrawal - Treatment Hospital Course: Detox Protocol Followed, Detoxed Safely, Responded well, Discharged Condition Good, Rehab Referral Accepted Patient has Accepted a Rehab Referral to: pt declined rehab; referral provided - Diagnosis (1) CVA (cerebral vascular accident) Current Visit: No Status: Chronic Qualifiers: CVA mechanism: unspecified Qualified Code(s): I63.9 - Cerebral infarction, unspecified (2) Alcohol dependence with uncomplicated withdrawal Current Visit: Yes Status: Chronic (3) Atrial fibrillation Current Visit: No Status: Chronic Qualifiers: Atrial fibrillation type: unspecified Qualified Code(s): I48.91 - Unspecified atrial fibrillation (4) Cocaine dependence Current Visit: Yes Status: Chronic Qualifiers: Substance use status: uncomplicated Qualified Code(s): F14.20 - Cocaine dependence, uncomplicated (5) GERD (gastroesophageal reflux disease) Current Visit: Yes Status: Chronic Qualifiers: Esophagitis presence: without esophagitis Qualified Code(s): K21.9 - Gastro -esophageal reflux disease without esophagitis (6) HTN (hypertension) Current Visit: Yes Status: Chronic Qualifiers: Hypertension type: essential hypertension Qualified Code(s): I10 - Essential (primary) hypertension (7) Morbid obesity Current Visit: Yes Status: Chronic (8) Nicotine dependence Current Visit: Yes Status: Chronic Qualifiers: Nicotine product type: cigarettes Substance use status: uncomplicated Qualified Code(s): F17.210 - Nicotine dependence, cigarettes, uncomplicated (9) Old cerebrovascular accident (CVA) without late effect Current Visit: No Status: Chronic (10) Sequela, post-stroke Current Visit: No Status: Chronic (11) Walker as ambulation aid Current Visit: Yes Status: Chronic - AMA Did Patient Leave Against Medical Advice: No
[2019-01-04 09:17] VITALS: BP 136/83; PULSE 74; TEMP 98.1
[2019-01-04] MEDS: PANTOPRAZOLE 20 MG TABLET (FP) PO SCH (09:20)
[2019-01-04] MEDS: CARVEDILOL 12.5 MG TABLET (FP) PO SCH (09:20)
[2019-01-04] MEDS: APIXABAN 5 MG TABLET PO SCH (09:20)
[2019-01-04] MEDS: PRENATAL VITAMINS W/ FOLIC ACID TABLET (FP) PO SCH (09:21)
[2019-01-04] MEDS: VALSARTAN 40 MG TABLET (FP) PO SCH (09:21)
[2019-01-04] MEDS: levETIRAcetam 500 MG TABLET (FP) PO SCH (09:22)
== END 2019-01-04 11:15 | disposition home or self-care (01) | DRG 774 ==
LOC: YASAS 21:09 → Y6N 01-02 02:27
PROVIDERS: ADMIT Surgery; ATTEND Surgery
PROC: HZ2ZZZZ Detoxification Services for Substance Abuse Treatment (ICD-10-PCS; principal; 2019-01-02)
DX: F10.230 Alcohol dependence with withdrawal, uncomplicated (principal); F14.20 Cocaine dependence, uncomplicated; F17.210 Nicotine dependence, cigarettes, uncomplicated; I10 Essential (primary) hypertension; I48.91 Unspecified atrial fibrillation; I69.322 Dysarthria following cerebral infarction; I69.392 Facial weakness following cerebral infarction; E83.30 Disorder of phosphorus metabolism, unspecified; E83.42 Hypomagnesemia; E78.6 Lipoprotein deficiency; K21.9 Gastro-esophageal reflux disease without esophagitis; G40.909 Epilepsy, unspecified, not intractable, without status epilepticus; E66.01 Morbid (severe) obesity due to excess calories; Z68.42 Body mass index [BMI] 45.0-49.9, adult; R26.2 Difficulty in walking, not elsewhere classified; Z99.89 Dependence on other enabling machines and devices; Z79.01 Long term (current) use of anticoagulants; Z88.8 Allergy status to other drugs, medicaments and biological substances
CPT/HCPCS: 36415; 80053; 81003; 86593; 86780